=== PATIENT | female | born 1965 | race Caucasian/White ===

== ENCOUNTER 2023-08-05 09:20 | Outpatient (OUT) | payer BC, SELFPAY ==
[2023-08-05 09:52] LABS: Basophils Absolute Auto 0.1 10^3/uL (0.0-0.1); Basophils Percent Auto 0.8 % (0.2-2.0); Eosinophils Absolute Auto 0.1 10^3/uL (0.0-0.7); Eosinophils Percent Auto 2.2 % (0.9-7.0); Hematocrit 40.6 % (36.0-48.0); Hemoglobin 13.3 g/dL (12.0-16.0); Immature Granulocytes Abs Auto 0.03 10^3/uL (0.00-0.03); Immature Granulocytes Pct Auto 0.5 % (0.0-0.5); Lymphocytes Percent Auto 32.5 % (20.5-60.0); Mean Corpuscular HGB Conc 32.8 g/dL (29.9-35.2); Mean Corpuscular Hemoglobin 29.6 pg (26.7-34.0); Mean Corpuscular Volume 90.4 fL (81.0-99.0); Mean Platelet Volume 9.9 fL (9.5-13.5); Monocytes Absolute Auto 0.5 10^3/uL (0.3-0.8); Monocytes Percent Auto 8.5 % (1.7-12.0); Neutrophils Absolute Auto 3.5 10^3/uL (1.4-6.5); Neutrophils Percent Auto 55.5 % (43.0-75.0); Platelet Count 339 10^3/uL (150-450); Red Blood Count 4.49 10^6/uL (4.20-5.40); Red Cell Distribution Width 13.1 % (11.0-15.0); White Blood Count 6.2 10^3/uL (4.0-11.0)
[2023-08-05 10:14] LABS: Estimated Average Glucose 123 mg/dL; Glycohemoglobin A1C 5.9 % (4.5-6.2)
[2023-08-05 10:20] LABS: Alanine Aminotransferase 36 U/L (14-59); Albumin Globulin Ratio 0.9; Albumin Level 3.4 g/dL (3.4-5.0); Alkaline Phosphatase 62 U/L (46-116); Anion Gap 13.1; Aspartate Amino Transferase 17 U/L (15-37); Bilirubin Total 0.2 mg/dL (0.2-1.0); Calcium 8.9 mg/dL (8.5-10.1); Chloride 107 mmol/L (98-107); Chol HDL Ratio 3.7; Cholesterol 208 mg/dL (<=200); Estimated GFR (African America >60 (>=60); Estimated GFR (Non-African Ame >60 (>=60); Free T3 3.18 pg/mL (2.18-3.98); Globulin 3.7 g/dL; Glucose 95 mg/dL (74-106); HDL Cholesterol 56 mg/dL (40-60); Potassium 4.1 mmol/L (3.5-5.1); Sodium 143 mmol/L (136-145); Thyroid Stimulating Hormone 1.979 uIU/mL (0.358-3.740); Total Protein 7.1 g/dL (6.4-8.2); Triglycerides 142 mg/dL (<=150); VLDL CHOLESTEROL 28.4 mg/dL
[2023-08-06 10:08] LABS: Insulin 17.3 uIU/mL (2.6-24.9)
== END 2023-08-05 09:21 | disposition home or self-care (01) ==
LOC: LAB 09:25
PROVIDERS: PCP Nurse Practitioner Family; Visit Provider Nurse Practitioner Family
DX: Z00.00 Encounter for general adult medical examination without abnormal findings (principal)
CPT/HCPCS: 36415; 80053; 80061; 82306; 83036; 83525; 83540; 84436; 84443; 84481; 85025

== ENCOUNTER 2023-08-15 13:55 | Emergency (ER) | payer BC, SELFPAY ==
[2023-08-15 14:06] VITALS: BP 141/96; PULSE 77; RESP 20; TEMP 36.7; O2SAT 97; BMI 32.3
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
[2023-08-15] MEDS: ADACEL DIPH,PERTUSS(ACELL),TET VAC/PF 0.5 ML ADULT SYRINGE IM (15:54)
[2023-08-15 16:08] VITALS: BP 139/86; PULSE 76; RESP 18; O2SAT 99
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
[2023-08-15 16:56] VITALS: BP 139/90; PULSE 73; RESP 16; O2SAT 98
== END 2023-08-15 17:05 | disposition home or self-care (01) ==
PROVIDERS: Emergency Provider Emergency Medicine; PCP Nurse Practitioner Family
DX: S41.112A Laceration without foreign body of left upper arm, initial encounter (principal); S60.021A Contusion of right index finger without damage to nail, initial encounter; W01.118A Fall on same level from slipping, tripping and stumbling with subsequent striking against other sharp object, initial encounter; Z23 Encounter for immunization; Z79.82 Long term (current) use of aspirin; Z79.899 Other long term (current) drug therapy
CPT/HCPCS: 12002; 29130; 73060; 90471; 90715; 99284

== ENCOUNTER 2024-08-14 07:34 | Outpatient (OUT) | payer BC, SELFPAY ==
[2024-08-14 07:55] LABS: Basophils Absolute Auto 0.1 10^3/uL (0.0-0.1); Basophils Percent Auto 0.9 % (0.2-2.0); Eosinophils Absolute Auto 0.1 10^3/uL (0.0-0.7); Eosinophils Percent Auto 1.9 % (0.9-7.0); Hematocrit 41.6 % (36.0-48.0); Hemoglobin 13.9 g/dL (12.0-16.0); Immature Granulocytes Abs Auto 0.03 10^3/uL (0.00-0.03); Immature Granulocytes Pct Auto 0.4 % (0.0-0.5); Lymphocytes Absolute Auto 2.4 10^3/uL (1.2-3.8); Lymphocytes Percent Auto 34.9 % (20.5-60.0); Mean Corpuscular HGB Conc 33.4 g/dL (29.9-35.2); Mean Corpuscular Hemoglobin 29.3 pg (26.7-34.0); Mean Corpuscular Volume 87.6 fL (81.0-99.0); Mean Platelet Volume 10.4 fL (9.5-13.5); Monocytes Absolute Auto 0.6 10^3/uL (0.3-0.8); Monocytes Percent Auto 8.5 % (1.7-12.0); Neutrophils Absolute Auto 3.7 10^3/uL (1.4-6.5); Neutrophils Percent Auto 53.4 % (43.0-75.0); Platelet Count 364 10^3/uL (150-450); Red Blood Count 4.75 10^6/uL (4.20-5.40); White Blood Count 6.8 10^3/uL (4.0-11.0)
[2024-08-14 08:55] LABS: Estimated Average Glucose 126 mg/dL
[2024-08-14 09:07] LABS: Alanine Aminotransferase 40 U/L (14-59); Albumin Level 3.5 g/dL (3.4-5.0); Alkaline Phosphatase 80 U/L (46-116); Aspartate Amino Transferase 21 U/L (15-37); BUN Creatinine Ratio 15.2; Bilirubin Total 0.5 mg/dL (0.2-1.0); Calcium 9.2 mg/dL (8.5-10.1); Carbon Dioxide 27.8 mmol/L (21.0-32.0); Chloride 104 mmol/L (98-107); Chol HDL Ratio 3.9; Cholesterol 193 mg/dL (<=200); Estimated GFR (African America >60 (>=60); Estimated GFR (Non-African Ame 53 (>=60); Free T3 4.99 pg/mL (2.18-3.98); Globulin 3.5 g/dL; Glucose 114 mg/dL (74-106); HDL Cholesterol 50 mg/dL (40-60); Potassium 3.8 mmol/L (3.5-5.1); Sodium 140 mmol/L (136-145); Thyroid Stimulating Hormone 2.949 uIU/mL (0.358-3.740); Triglycerides 180 mg/dL (<=150)
[2024-08-15 06:09] LABS: Insulin 20.2 uIU/mL (2.6-24.9)
== END 2024-08-14 07:35 | disposition home or self-care (01) ==
LOC: LAB 07:36
PROVIDERS: PCP Nurse Practitioner Family; Visit Provider Nurse Practitioner Family
DX: Z00.00 Encounter for general adult medical examination without abnormal findings (principal)
CPT/HCPCS: 36415; 80053; 80061; 83036; 83525; 84436; 84443; 84481; 84482; 85025

== ENCOUNTER 2024-09-18 08:37 | Outpatient (OUT) | payer BC, SELFPAY ==
[2024-09-18 10:08] LABS: Alanine Aminotransferase 57 U/L (14-59); Albumin Level 3.6 g/dL (3.4-5.0); Alkaline Phosphatase 89 U/L (46-116); Anion Gap 14.8; Aspartate Amino Transferase 33 U/L (15-37); BUN Creatinine Ratio 13.8; Bilirubin Total 0.5 mg/dL (0.2-1.0); Calcium 9.6 mg/dL (8.5-10.1); Carbon Dioxide 27.1 mmol/L (21.0-32.0); Chloride 106 mmol/L (98-107); Estimated GFR (African America >60 (>=60 mL/min/1.73m^2); Estimated GFR (Non-African Ame 51 (>=60 mL/min/1.73m^2); Globulin 3.7 g/dL; Glucose 111 mg/dL (74-106); Potassium 3.9 mmol/L (3.5-5.1); Sodium 144 mmol/L (136-145); Total Protein 7.3 g/dL (6.4-8.2)
[2024-09-19 08:13] LABS: Triiodothyronine (T3) 125 ng/dL (71-180)
== END 2024-09-18 08:38 | disposition home or self-care (01) ==
LOC: LAB 08:39
PROVIDERS: PCP Nurse Practitioner Family; Visit Provider Nurse Practitioner Family
DX: Z00.00 Encounter for general adult medical examination without abnormal findings (principal)
CPT/HCPCS: 36415; 80053; 84480

== ENCOUNTER 2025-08-01 07:25 | Outpatient (OUT) | payer BC, SELFPAY ==
--- OUTSIDE RECORDS SUMMARY | 2025-07-25 05:00 | XMS_ITS ---
Author Organization The [facility] in [place] Address [address] [place] [address] Care Team Providers [facility] [employer] Name Role Phone Noemi Degroot Primary Care Provider Allergies Allergen (clinical drug ingredient) Drug/Non Drug Allergy documented on EMR Reaction Allergy Type Onset Date Status Substance with 0-npeexxf-1-methylgl utaryl-coenzyme A reductase inhibitor mechanism of action (substance) Statins myalgias, weakness Drug Allergy Active REASON FOR VISIT Presents to office alone for yearly wellness exam Medications Medication SIG (Take, Route, Frequency, Duration) Notes Start Date End Date Status Triple Somerset-3-6-9 A ctive Multivitamin Active Glucosamine Active Omeprazole 40 MG TAKE 1 CAPSULE BY [facility] EVERY DAY 30 MINUTES BEFORE MORNING MEAL once weekly; Duration: 90 days Active Semaglutide 0.6 mg/0.5 mL Semaglutide 0.6 mg/0.5 mL 0.5 mL Subcutaneous Once Weekly Active Calcium Magnesium Ac tive Evening Derry Oil 500 MG as directed Orally Active Aspirin Low Dose 81 MG TAKE 1 TABLET BY MOUTH EVERY DAY; Duration: 90 Active Colesevelam HCl 625 MG TAKE 4 TABLETS BY MOUTH EVERY DAY; Duration: 90 Active Vitamin D3 Active Social History Tobacco Use: Social History Observation Description Date Details (start date - stop date) Never Smoker NA - NA Tobacco Use/Smoking Question Answer Notes Patient is a nonsmoker AUDIT-C (Standard) Question Answer Notes Did you have a drink containing alcohol in the p ast year? No Points 0 Interpretation Negative Vital Signs Weight 176 lbs 07/25/2025 Height 66.510 in 07/25/2025 Blood pressure systolic 108 mm Hg 07/25/20 25 Blood pressure diastolic 68 mm Hg 025 BMI 27.97 kg/m2 07/25/2025 Encounters Encounter Location Date Provider Diagnosis [facility] [address] [facility] [place] [address] 07/25/2025 Noemi Degroot Wellness examination Z00.00 and Hyperlipidemia E78.5 Assessments Encounter Date Diagnosis (ICD Code) Assessment Notes Treatment Notes Treatment Clinical Notes Section Notes 07/25/2025 Wellness examination (ICD-10 - Z00.00) ROS done exam done 07/25/2025 Hyperlipidemia (ICD-10 - E78.5) Plan Of Treatment Medication Medication Name Sig Start Date Stop Date Notes Aspirin Low Dose 81 MG TAKE 1 TABLET BY MOUTH EVERY DAY; Duration: 90 Colesevelam HCl 625 MG TAKE 4 TABLETS BY MOUTH EVERY DAY; Duration: 90 Treatment Notes Assessment Notes Wellness examination ROS done exam done Pending Test Test Name Order Date HEMOGLOBIN A1C (GLYCO) 07/25/2025 IRON, TOTAL 07/25/2025 LIPID PANEL (CHOL/TRIG/HDL/LDL) 07/25/20 25 VITAMIN D, 25 LEVEL (TOTAL) 07/25/2025 Insulin Level 07/25/2025 THYROID PANEL (T4/TSH/FREE T3) CMP (COMP MET AVENDAÑO) w/eGFR CKD-EPI 2024 CBC WITH DIFF 07/25/2025 Next Appt Details Follow Up: 1 Year,prn, Reaso n: Progress Notes * Susanna MARIA RDOB:1965 (59 yo F)Acc No.[id number]:07/25/2025 Progress Note Patient: Susanna MOE R Provider: Sanjuana Degroot ([facility]), DRY ROOM ATTENDANT :1965 A ge:59 Y S ex:Female Date:07/25/2025 Address:[address] [id number] Check In:08:43 AM ESTCheck O ut:09:06 AM EST Subjective: * Chief Complaints: * 1 . Presents to office alone for yearly wellness exam. * HPI: G eneral: taking semaglutide down 33 lbs , going off GLP 1 wt watchers too 90 days [facility] mammograms done for year paps colonoscopy few years ago, 10 years out labs. * ROS: G eneral/Constitutional: Fever d enies. H eadache d enies. W eight loss?denies. O phthalmologic: Discharge d enies. E ye Pain d enies. I tching and redness d enies. E NT: Nasal discharge d enies. N sushil congestion d enies.?Sore throat d enies. C ardiovascular: Chest tightness/ heavy pressure d enies. R apid heart rate d enies. S welling of extremities d enies. C hest pain d enies. ? R espiratory: Productive cough d enies. C hest pain d enies. C ough d enies. S hortness of breath d enies. W heezing d enies. ? G astrointestinal: Abdominal pain d enies. C onstipation d enies. D ecreased appetite d enies. D iarrhea d enies. N ausea d enies. V omiting?denies. G enitourinary: Urinary incontinence d enies. P ainful urination d enies. M usculoskeletal: Back pain d enies. N huan pain d enies. M uscle aches d enies. S kin: Rash d enies. S kin lesion(s) d enies. ? * Active Problem List I82.409 DVT (deep venous thr ombosis) Modified On:07/29/2023/U Status:confirmed K52.9 Colitis Modified On:07/29/2023U Status:confirmed E66.3 Over weight Modified On:07/29/2023U Status:confirmed N18.9 CKD (chronic kidney disease) Modified On:07/29/2023U Status:confirmed E78.5 Hyperlipidemia Modified On:07/29/2023/U Status:confirmed K21.9 Gastro-esophageal re flux disease without esophagitis Modified On:08/05/2023/U Status:confirmed R73.09 Pre-diabetes Modified On:08/16/2024/U Status:confirmed E66.9 Class 1 obesity Modified On:10/26/2024W/U Status:confirmed E66.3 Overweight Modified On:04/25/2025W/U Status:confirmed * Medical History: D VT, COLITIS, OVER WEIGHT, CKD, HYPERLIPIDEMIA, Atypical ductal hyperplasia of breast. * Surgical History: H YSTEROSCOPY D&C 01/2023, DELIVERY x3 , Endometrial ablasion , Lumpectomy right breast 11/2018. * Hospitalization/Major Diagno stic Procedure: G I bleed 2020. * Family History: F ather: unknown. M other: alive, Cancer lung, breast, skinHysterectomy- start of uterine cancer, diagnosed with Unspecified essential hypertension, Diabetes mellitus without mention of complication, type II or unspecified type, not stated as uncontrolled. B rother(s): , asthma, diagnosed with Other malignant neoplasm of unspecified site. S ister(s): alive, bipolar, asthma, diagnosed with Diabetes mellitus without mention of complication, type II or unspecified type, not stated as uncontrolled. S on(s): alive, Cardio Electrical Issues. D shawner(s): alive, bipolar, anxiety. 2 brother(s) , 1 sister(s) . 1 son(s) , 2 daughter(s) . . Does not know is Biological Father One brother passed at 30- car accident. * Social History: T obacco Use: T obacco Use/Smoking P atient is a n onsmoker D rug/Alcohol: A RENAY-C (Standard) D id you have a drink containing alcohol in the past year? N o P oints 0 I nterpretation N egative * Medications: T aking Aspirin Low Dose(Aspirin) 81 MG Tablet Delayed Release TAKE 1 TABLET BY MOUTH EVERY DAY , Taking Calcium Magnesium , Taking Colesevelam HCl 625 MG Tablet TAKE 4 TABLETS BY MOUTH EVERY DAY , Taking Evening Derry Oil 500 MG Capsule as directed Orally , Taking Glucosamine , Taking Multivitamin , Taking Omeprazole 40 MG Capsule Delayed Release TAKE 1 CAPSULE BY MOUTH EVERY DAY 30 MINUTES BEFORE MORNING MEAL once weekly , Taking Semaglutide 0.6 mg/0.5 mL Semaglutide 0.6 mg/0.5 mL Solution Auto-injector 0.5 mL Subcutaneous Once Weekly , Taking Triple [place]-3-6-9 , Taking Vitamin D3 , Discontinued Semaglutide 1.2 mg/ 0.33mL 1.2 mg/ 0.33mL Solution Auto-injector 0.33 mL Subcutaneous Once Weekly , Medication List reviewed and reconciled with the patient * Allergies: S tatins: myalgias, weakness - Allergy. Objective: * Vitals: W t:176lbs, Ht: 66.510 in, BP:108/68mm Hg, BMI:27.97Index, Ht-cm: 168.94 cm, Wt- k.83 kg. * Examination: G eneral Examinations: GENERAL APPEARANCE: a lert and oriented, i n no acute distress. EYES: c onjunctiva normal, sclera non-icteric. EARS: e xternal auditory canals are patent. Tympanic membranes are pearly trivedi and mobile. NOSE: n ormal external appearance. LUNGS: c lear to auscultation bilaterally. CARDIO: r egular rate and rhythm, S1, S2 normal. ABDOMEN: s oft, nontender. MUSCULOSKELETAL: G ait and station normal. SKIN: w arm and dry. Assessment: * Assessment: 1. W ellness examination - Z00.00 (Primary) 2 . H yperlipidemia - E78.5? Plan: * Treatment: 2. H yperlipidemia Refill Aspirin Low Dose Tablet Delayed Release, 81 MG, TAKE 1 TABLET BY MOUTH EVERY DAY, 90, 90 Tablet, Refills 3; R efill Colesevelam HCl Tablet, 625 MG, TAKE 4 TABLETS BY MOUTH EVERY DAY, 90, 360 Tablet, Refills 3. * Preventive Medicine: Screenings/Counseling: B TN ACTION PLAN Above Normal BMI Follow-up D ietary management education, guidance, and counseling See treatment section of progress note for complete details of management plan. * Follow Up: 1 Year,prn * * Electronically signed by Emmy Degroot NP, [employer] E[employer]OMICS AGENT.DRY ROOM [id number] on 07/25/2025 at 11:19 AM EDT Sign off status: Completed Visit Status: C HK (Check Out) true * Provider: Sanjuana Degroot ([facility]), DONA Date: 07/25/2025 Generated for Roma rivera/Parish/Kurtitting on: 08/01/2025 07:27 AM EDT History and Physical Notes * HPI (History of Present Illness) Category Sub-Category Detail Notes Category Not es General taking semaglutide down 33 lbs , going off GLP 1 wt watchers too 90 days [facility] mammograms done for year paps colonoscopy few years ago, 10 years out labs Examination Category Sub-Category Detail Notes Category Not es General Examinations GENERAL APPEARANCE: alert a nd oriented, in no acute distress EYES: conjunctiva normal, sclera non-icteric EARS: external auditory ca nals are patent. Tympanic membranes are pearly trivedi and mobile NOSE: normal external appe arance THROAT: CARDIO: regular rate and rhy thm, S1, S2 normal LUNGS: clear to auscultatio n bilaterally ABDOMEN: soft, nontender SKIN: warm and dry BACK: MUSCULOSKELETAL: Gait and station nor mal LYMPH NODES:
--- OUTSIDE RECORDS SUMMARY | 2025-08-01 07:28 | XMS_ITS | Patient Health Record ---
Author Organization [facility] in [place] Address [address] [place] [address] Care Team Providers Care Grid Caster Name Role Phone Mikayla, Noemi Primary Care Provider Allergies Allergen (clinical drug ingredient) Drug/Non Drug Allergy documented on EMR Reaction Allergy Type Onset Date Status Substance with 7-gxvshaq-8-methylgl utaryl-coenzyme A reductase inhibitor mechanism of action (substance) Statins myalgias, weakness Drug Allergy Active Results Component Value Reference Range Notes CBC AUTO DIFF Reviewed date:08/15/2024 03:53:06 PM Interpretation: Performing Lab: Notes/Report: [facility] , White Blood Count 6.8 4.0-11.0 10 3/uL Red Blood Count 4.75 4.20-5.40 10 6/uL Hemoglobin 13.9 12.0-16.0 g/dL Hematocrit 41.6 36.0-48.0 % Mean Corpuscular Volume 87.6 81.0-99.0 fL Mean Corpuscular Hemoglobin 29.3 26.7-34.0 pg Mean Corpuscular HGB Conc 33.4 29.9-35.2 g/dL Red Cell Distribution Width 13.0 11.0-15.0 % Platelet Count 364 150-450 10 3/uL Mean Platelet Volume 10.4 9.5-13.5 fL Neutrophils Percent Auto 53.4 43.0-75.0 % Lymphocytes Percent Auto 34.9 20.5-60.0 % Monocytes Percent Auto 8.5 1.7-12.0 % Eosinophils Percent Auto 1.9 0.9-7.0 % Basophils Percent Auto 0.9 0.2-2.0 % Immature Granulocytes Pct Auto 0.4 0.0-0.5 % Neutrophils Absolute Auto 3.7 1.4-6.5 10 3/uL Lymphocytes Absolute Auto 2.4 1.2-3.8 10 3/uL Monocytes Absolute Auto 0.6 0.3-0.8 10 3/uL Eosinophils Absolute Auto 0.1 0.0-0.7 10 3/uL Basophils Absolute Auto 0.1 0.0-0.1 10 3/uL Immature Granulocytes Abs Auto 0.03 0.00-0.03 10 3/uL Performing Lab: see note ML - [facility] LB Reverse T3, Serum Reviewed date:08/22/2024 09:32:34 AM Interpretation: Performing Lab: Notes/Report: [facility] , Reverse T3, Serum 15.0 9.2-24.1 ng/dL This test was developed and its performance characteristics determined by [facility]. It has not been cleared or approved by the Food and Drug Administration. Performed at: [address] [id number] Campus Receptionist: Michael Morel MD, Phone: [phone] Performing Lab: see note [facility] LB TSH Reviewed date:08/15/2024 03:53:06 PM Interpretation: Performing Lab: Notes/Report: [facility] , Thyroid Stimulating Hormone 2.949 0.358-3.740 u IU/mL Performing Lab: see note ML - [facility] LB T4 Reviewed date:08/15/2024 03:53:06 PM Interpretation: Performing Lab: Notes/Report: [facility] , T4 Thyroxine 7.40 4.80-13.90 ug/dL Performing Lab: see note - [facility] LB PROF 14(COMP METB) Reviewed date:08/15/2024 03:53:06 PM Interpretation: Performing Lab: Notes/Report: [facility] , Sodium 140 136-145 mmol/L Potassium 3.8 3.5-5.1 mmol/L Chloride 104 98-107 mmol/L Carbon Dioxide 27.8 21.0-32.0 mmol/L Anion Gap 12.0 Glucose 114 74-106 mg/dL Blood Urea Nitrogen 16.0 7.0-18.0 mg/dL Creatinine 1.05 0.55-1.02 mg/dL Estimated GFR ( Robyn >60 >=60 Estimated GFR (Non- Loren 53 >=60 BUN Creatinine Ratio 15.2 Calcium 9.2 8.5-10.1 mg/dL Bilirubin Total 0.5 0.2-1.0 mg/dL Aspartate Amino Transferase 21 15-37 U/L Alanine Aminotransferase 40 14-59 U/L Alkaline Phosphatase 80 46-116 U/L Total Protein 7.0 6.4-8.2 g/dL Albumin Level 3.5 3.4-5.0 g/dL Globulin 3.5 Albumin Globulin Ratio 1.0 Performing Lab: see note ML - [facility] LIPID PROFILE Reviewed date:08/15/2024 03:53:06 PM Interpretation: Performing Lab: Notes/Report: [facility] , Triglycerides 180 <=150 mg/dL Cholesterol 193 <=200 mg/dL HDL Cholesterol 50 40-60 mg/dL > or =60 mg/dl - LOW CARDIOVASCULAR RISK <40 mg/dl - HIGH CARDIOVASCULAR RISK LDL Cholesterol Calculated 107.0 <100 mg/dl OPTIMAL 100-129 mg/dl NEAR OR ABOVE OPTIMAL 130-159 mg/dl BORDERLINE HIGH 160-189 mg/dl HIGH >190 mg/dl VERY HIGH VLDL CHOLESTEROL 36.0 Chol HDL Ratio 3.9 3.3 - 4.4 LOW RISK 4.4 - 7.1 AVERAGE RISK 7.1 - 11.0 MODERATE RISK >11.0 HIGH RISK Performing Lab: see note ML - [facility] INSULIN Reviewed date:08/15/2024 03:53:06 PM Interpretation: Performing Lab: Notes/Report: [facility] , Insulin 20.2 2.6-24.9 uIU/mL Performed at: - [facility] [address] [id number] Campus Receptionist: John Nassar PhD, Phone: [phone] Performing Lab: see note - [facility] LB GLYCOHEMOGLOBIN A1C Reviewed date:08/15/2024 03:53:06 PM Interpretation: Performing Lab: Notes/Report: [facility] , Glycohemoglobin A1C 6.0 4.5-6.2 % ADA RECOMMENDED LIMIT 4.0 - 6.0 ADA THERAPEUTIC TARGET < 7.0 ACTION SUGGESTED > 7.0 Estimated Average Glucose 126 Performing Lab: see note - [facility] FREE T3 Reviewed date:08/15/2024 03:53:06 PM Interpretation: Performing Lab: Notes/Report: [facility] , Free T3 4.99 2.18-3.98 pg/mL Performing Lab: see note - [facility] LB Triiodothyronine (T3) Reviewed date:09/19/2024 09:46:37 AM Interpretation: Performing Lab: Notes/Report: [facility] , Triiodothyronine (T3) 125 71-180 ng/dL Performed at: - [facility] [address] [id number] Campus Receptionist: John Nassar PhD, Phone: [phone] Performing Lab: see note - [facility] LB PROF 14(COMP METB) Reviewed date:09/19/2024 09:46:51 AM Interpretation: Performing Lab: Notes/Report: [facility] , Sodium 144 136-145 mmol/L Potassium 3.9 3.5-5.1 mmol/L Chloride 106 98-107 mmol/L Carbon Dioxide 27.1 21.0-32.0 mmol/L Anion Gap 14.8 Glucose 111 74-106 mg/dL Blood Urea Nitrogen 15.0 7.0-18.0 mg/dL Creatinine 1.09 0.55-1.02 mg/dL Estimated GFR ( Robyn >60 >=60 mL/min/1.73m 2 Estimated GFR (Non- Loren 51 >=60 mL/min/1.73m 2 BUN Creatinine Ratio 13.8 Calcium 9.6 8.5-10.1 mg/dL Bilirubin Total 0.5 0.2-1.0 mg/dL Aspartate Amino Transferase 33 15-37 U/L Alanine Aminotransferase 57 14-59 U/L Alkaline Phosphatase 89 46-116 U/L Total Protein 7.3 6.4-8.2 g/dL Albumin Level 3.6 3.4-5.0 g/dL Globulin 3.7 Albumin Globulin Ratio 1.0 Performing Lab: see note ML - [facility] LB Reason For Referral No Information Medications Medication SIG (Take, Route, Frequency, Duration) Notes Start Date End Date Status Triple [place]-3-6-9 A ctive Semaglutide 0.6 mg/0.5 mL Semaglutide 0.6 mg/0.5 mL 0.5 mL Subcutaneous Once Weekly Active Vitamin D3 Active Calcium Magnesium Ac tive Evening [place] Oil 500 MG as directed Orally Active Aspirin Low Dose 81 MG TAKE 1 TABLET BY MOUTH EVERY DAY; Duration: 90 Active Colesevelam HCl 625 MG TAKE 4 TABLETS BY MOUTH EVERY DAY; Duration: 90 Active Multivitamin Active Glucosamine Active Omeprazole 40 MG TAKE 1 CAPSULE BY [facility] EVERY DAY 30 MINUTES BEFORE MORNING MEAL once weekly; Duration: 90 days Active Social History Tobacco Use: Social History Observation Description Date Details (start date - stop date) Never Smoker NA - NA Tobacco Use/Smoking Question Answer Notes Patient is a nonsmoker AUDIT-C (Standard) Question Answer Notes Did you have a drink containing alcohol in the p ast year? No Points 0 Interpretation Negative Problems Problem Type SNOMED Code ICD Code Onset Dates Problem Status W/U Status Risk Notes Problem Gastro-esophageal reflux disease without esophagitis (594627539) Gastro-esophageal reflux disease without esophagitis (K21.9) Active confirmed Problem Overweight (143999196) Overweight (E66.3) Active confirmed Problem Hyperlipidemia (96242333) Hyperlipidemia (E78.5) Active confirmed Problem Chronic kidney disease (266597771) CKD (chronic kidney disease) (N18.9) Active confirmed Problem Deep venous thrombosis (973879665) DVT (deep venous thrombosis) (I82.409) Active confirmed Problem Colitis (69690154) Colitis (K52.9) Active confirmed Problem Prediabetes (598737608) Pre-diabetes (R73.09) Active confirmed Problem Overweight (258902499) Over weight (E66.3) Active confirmed Problem Obese class I (finding) (867682583279069) Class 1 obesity (E66.9) Active confirmed Vital Signs Blood pressure diastolic 68 mm Hg 07/25/2025 Height 66.510 in 07/25/2025 Blood pressure systolic 108 mm Hg 07/25/2025 Weight 176 lbs 07/25/2025 BMI 27.97 kg/m2 07/25/2025 Encounters Encounter Location Date Provider Diagnosis [facility] [address] [facility] [place] [address] 08/14/2024 Noemi Degroot [facility] [address] [place] [facility] [place] [address] 08/16/2024 Noemi Degroot Wellness examination Z00.00 [facility] [address] [place] [facility] [place] [address] 09/19/2024 Noemi Degroot [facility] [address] [place] [facility] [place] [address] 10/25/2024 Noemi Degroot [facility] [address] [place] [facility] [place] [address] 12/14/2024 Noemi Degroot [facility] [address] [place] [facility] [place] [address] 01/03/2025 Noemi Degroot [facility] [address] [place] [facility] [place] [address] 02/05/2025 Noemi Degroot [facility] [address] [place] [facility] [place] [address] 03/05/2025 Noemi Degroot [facility] [address] [place] [facility] [place] [address] 08/11/2024 Noemi Degroot Wellness examination Z00.00 and Onychomycosis B35.1 [facility] [address] [place] [facility] [place] [address] 10/25/2024 Noemi Degroot Class 1 obesity E66. 9 [facility] [address] [place] [facility] [place] [address] 01/23/2025 Noemi Degroot Class 1 obesity E66. 9 [facility] [address] [place] [facility] [place] [address] 04/25/2025 Noemi Degroot Overweight E66.3 [facility] [address] [place] [facility] [place] [address] 07/25/2025 Noemi Degroot Wellness examination Z00.00 and Hyperlipidemia E78.5 Assessments Encounter Date Diagnosis (ICD Code) Assessment Notes Treatment Notes Treatment Clinical Notes Section Notes 08/11/2024 Wellness examination (ICD-10 - Z00.00) ROS done exam done encouraged preventive screenings 08/11/2024 Onychomycosis (ICD-10 - B35.1) 10/25/2024 Class 1 obesity (ICD-10 - E66.9) work on diet has handouts from previous visit wants to try MS compounded GLP 1, rx sent wants to start [place] fu 3 months 01/23/2025 Class 1 obesity (ICD-10 - E66.9) continue semaglutide call for next dose work on diet, exercise fu 04/25/2025 Overweight (ICD-10 - E66.3) has supply of semaglutide to last til end of year planning on stopping than just added walking work on diet fu 07/25/2025 Wellness examination (ICD-10 - Z00.00) ROS done exam done 08/16/2024 Wellness examination (ICD-10 - Z00.00) 07/25/2025 Hyperlipidemia (ICD-10 - E78.5) Plan Of Treatment Pending Test Test Name Order Date CMP (COMPLETE METABOLIC PANEL) 3 CMP (COMPLETE METABOLIC PANEL) 4 CMP (COMPLETE METABOLIC PANEL) 4 HEMOGLOBIN A1C (GLYCO) 08/11/2024 HEMOGLOBIN A1C (GLYCO) 07/25/2025 HEMOGLOBIN A1C (GLYCO) 08/05/2023 INSULIN, TOTAL 08/11/2024 IRON, TOTAL 08/05/2023 IRON, TOTAL 07/25/2025 LIPID PANEL (CHOL/TRIG/HDL/LDL) 07/25/20 25 LIPID PANEL (CHOL/TRIG/HDL/LDL) 08/05/20 23 LIPID PANEL (CHOL/TRIG/HDL/LDL) 08/11/20 24 CBC WITH DIFF 08/11/2024 CBC WITH DIFF 08/05/2023 VITAMIN D, 25 LEVEL (TOTAL) 08/05/2023 VITAMIN D, 25 LEVEL (TOTAL) 07/25/2025 Insulin Level 08/05/2023 Insulin Level 07/25/2025 REVERSE T3 08/11/2024 T3, TOTAL (TRIIODOTHYRONINE) 08/16/2024 THYROID PANEL (T4/TSH/FREE T3) 5 THYROID PANEL (T4/TSH/FREE T3) 4 THYROID PANEL (T4/TSH/FREE T3) 3 CMP (COMP MET [place]) w/eGFR CKD-EPI 2024 CBC WITH DIFF 07/25/2025 Insurance Providers Payer Name Payer Address Payer Phone Subscriber Number Group Number Insured Name Patient Relationship to Insured Coverage Start Date Coverage End Date [employer] [address] [place] [address] [id number] Susanna Maria Self - patient is the insured Medical (General) History Medical History History ICD Code DVT COLITIS OVER WEIGHT CKD HYPERLIPIDEMIA Atypical ductal hyperplasia of breast N6 0.99 Surgical History Surgery Date(Month/Year) Lumpectomy right breast 11/2018 Endometrial ablasion DELIVERY x3 HYSTEROSCOPY D&C 01/2023 Hospitalization History Reason Date(Month/Year) GI bleed 2020
--- OUTSIDE RECORDS SUMMARY | 2025-08-01 07:28 | XMS_ITS | Clinical Summary ---
Author Organization [employer] Address [id number] [address] [place] [address] Care Team Providers Care Census Clerk Name Role Phone Noemi Degroot Cirilo FRANCOISN-ENGINEERING GROUP LEADER Primary Care Provider Allergies No known active allergies Medications colesevelam (WELCHOL) 625 mg tablet Take 4 tablets (2,500 mg total) by mouth in the morning. 11 10/21/2018 Active multivitamin capsule Take 1 capsule by mouth in the morning. Active omega-3 fatty acids-fish oil 300-1,000 mg capsule Take 2 capsules (2 g total) by mouth in the morning. Active calcium carbonate-vitam in D3 (OSCAL 500 + D) 500 mg(1,250mg) -200 units per tablet Take 1 tablet by mouth in the morning and 1 tablet in the evening. Take with meals. Active glucosamine-cho ndroitin 500-400 mg tablet Take 1 tablet by mouth 3 (three) times a day. Active aspirin 81 mg chewable tablet Chew 1 tablet (81 mg total) and swallow in the morning. Active evening primrose oil 500 mg capsule Take by mouth daily. Active Active Problems Problem Noted Date Diagnosed Date Scattered fibroglandular tis bhavik density of both breasts on mammography 01/04/2025 Hyperlipidemia 12/01/2023 Obesity (BMI 30.0-34.9) 12/01/2023 Endometrial thickening on ultrasound 01/24/2021 Family history of breast cancer 12/29/2018 Atypical ductal hyperplasia of right breast 12/16 At high risk for breast cancer 12/29/2018 Encounters Date Type Department Care Team Description 07/10/2025 8:10 AM EDT - 07/10/2025 11:59 PM EDT Hospital Encounter [facility] - Mammography/DEXA Imaging [address] [facility] [place] [phone] Frances Andrews, SPRING LAYER-ENGINEERING GROUP LEADER Abnormality of left breast on screening mammogram; Family history of breast cancer; Hx of breast cancer; Scattered fibroglandular tissue density of both breasts on mammography Discharge Disposition: Home 07/10/2025 Results Follow-Up [facility] - [place] [address] [place] [address] Frances Andrews, SPRING LAYER-DONA Mammography diagnostic unilateral left with CAD 07/08/2025 Travel 06/08/2025 Telephone [facility] Obstetrics/Gynecolo gy [address] [place] [address] Frances Andrews, SPRING LAYER-ENGINEERING GROUP LEADER from Last 3 Months Family History Medical History Relation Name Comments Pancreatic cancer Brother Stomach cancer Maternal Grandfather Ovarian cancer Maternal Grandmother Heather Uterine cancer Maternal Grandmother Heather Cancer Maternal Uncle spine, mets t o lungs Breast cancer Mother Sheryl Diabetes Mother Sheryl Type 2 Hyperlipidemia Mother Sheryl Hypertension Mother Sheryl Lung cancer Mother Sheryl Skin cancer Mother Sheryl Breast cancer Other 1 great aunt MGM's sister, dx 50s Breast cancer Other 2 great aunt MGM's sister, dx 50s Asthma Sister Sherri Diabetes Sister Sherri Type 2 Relation Name Status Comments Brother Father Maternal Grandfather Maternal Grandmother Heather Maternal Uncle Mother Sheryl Alive Other 1 great aunt Other 2 great aunt Sister Sherri Alive Social History Tobacco Use Types Packs/Day Years Used Date Smoking Tobacco: Never Smokeless Tobacco: Never Tobacco Cessation:Counseling Given: Not Answered Alcohol Use Standard Drinks/Week Comments No 0 (1 standard drink = 0.6 oz pur e alcohol) Social Connection and Isolat ion Panel [NHANES] Answer Date Recorded In a typical week, how many times do you talk on the phone with family, friends, or neighbors? More than three times a week 12/28/2022 How often do you get togethe r with friends or relatives? Three times a week 12/28/2022 How often do you attend chur or anabaptism services? Never 12/28/2022 Do you belong to any clubs o r organizations such as yazidi groups, unions, fraternal or athletic groups, or school groups? No 12/28/2022 How often do you attend meet ings of the clubs or organizations you belong to? Patient declined 12/28/2022 Are you , , di vorced, , never , or living with a partner? 12/28/2022 AUDIT-C Answer Date Recorded Q1: How often do you have a drink containing alcohol? Never 12/28/2022 Q2: How many drinks containi ng alcohol do you have on a typical day when you are drinking? Patient does not drink Q3: How often do you have si x or more drinks on one occasion? Never 12/28/2022 Overall Financial Resource Strain (CARDIA) Answe r Date Recorded How hard is it for you to pa y for the very basics like food, housing, medical care, and heating? Not hard at all 12/28/2022 PHQ-2 Answer Date Recorded Total Score 1 12/06/2024 [facility] - Occupational Stress Questionnaire Answer Date Recorded Do you feel stress - tense, restless, nervous, or anxious, or unable to sleep at night because your mind is troubled all the time - these days? Not at all 12/28/2022 Exercise Vital Sign Answer Date Recorde d On average, how many days pe r week do you engage in moderate to strenuous exercise (like a brisk walk)? 0 days 12/28/2022 On average, how many minutes do you engage in exercise at this level? 0 min 12/28/2022 PRAPARE - Transportation Answer Date Re corded In the past 12 months, has l ack of transportation kept you from medical appointments or from getting medications? No 12/16 In the past 12 months, has l ack of transportation kept you from meetings, work, or from getting things needed for daily living? No 12/28/2022 Housing Instability Answer Date Recorde d Are you worried or concerned that in the next two months you may not have stable housing that you own, rent or stay in as a part of a household? No 12/28/2022 Childcare Answer Date Recorded Do problems getting child ca re make it difficult for you to work or study? No 12/28/2022 Employment Answer Date Recorded Do you need help finding a [facility] career center and/or a training program? No 12/28/2022 Hunger Screening Answer Date Recorded Within the past 12 months we worried whether our food would run out before we got money to buy more. Never True 12/06/2024 Within the past 12 months th e food we bought just didn't last and we didn't have money to get more. Never True 12/06/2024 Purpose - Life Answer Date Recorded I have a purpose and direction in my life. Stron gly Agree 12/28/2022 Education Answer Date Recorded What is the highest level of school you have completed or the highest degree you have received? Bachelor's degree (e.g., BA, AB, BS) 12/23/2019 Comments No Sex and Gender Information Value Date Recorded Sex Assigned at Female 10/24/2021 10:11 AM EST Legal Sex Female 11:55 AM EDT Gender Identity Female 10/24/2021 10:11 AM EST Sexual Orientation Straight 10/24/2021 10 :11 AM EST Last Filed Vital Signs Vital Sign Reading Time Taken Comments Blood Pressure 112/80 12/06/2024 8:13 AM EST Pulse 82 02/02/2023 8:57 AM EDT Temperature 37.1 C (98.8 F) 02/02/2023 8:57 AM EDT Respiratory Rate 16 02/02/2023 8:57 AM EDT Oxygen Saturation 99% 02/02/2023 8:57 AM EDT Inhaled Oxygen Concentration - - Weight 92.1 kg (203 lb) 12/06/2024 8:13 AM EST Height 168.9 cm (5' 6.5 ) 12/06/2024 8:13 AM EST Body Mass Index 32.27 12/06/2024 8:13 AM EST Plan of Treatment Health Maintenance Due Date Last Done Comments DTaP,Tdap and Td Vaccines (1 - Tdap) 1982 Zoster (Shingles) Vaccine (1 of 2) 2013 Influenza Vaccine 07/16/2025 10/04/2024, , 09/10/2023, Additional history exists Pap Smear 11/24/2025 11/24/2022, 11/15, 10/31/2019, Additional history exists Adult BMI Follow Up Plan 12/06/2025 12/06/2024 Adult BMI Screening 12/06/2025 12/06/2024 Depression Screening 12/06/2025 12/06/2024 Tobacco Screening 12/06/2025 12/06/2024 Mammogram 07/10/2026 07/10/2025, 12/17, 01/04/2025, Additional history exists COVID-19 Vaccine Completed 10/03/2024, , 10/04/2021, Additional history exists Medical Devices Not on file Procedures Procedure Name Priority Date/Time Associated Diagnosis Comments MAMM DIAGNOSTIC UNILAT LT W CAD Routine 07/10/2025 8:33 AM EDT Abnormality of left breast on screening mammogram Family history of breast cancer Hx of breast cancer Scattered fibroglandular tissue density of both breasts on mammography HIGH RISK HPV W/JEAN-PAUL Routine 11/24/2022 6:07 AM EST Screening for cervical cancer from Last 3 Months or Most Recently Relevant to Health Maintenance Results * Mammography diagnostic unilateral left with CAD (07/10/2025 8:33 AM EDT) Anatomical Region Laterality Modality Breast Left Mammography 07/10/2025 8:55 AM EDT Narrative 07/10/2025 8:58 AM EDT BRIA MARIA 1965 [id number] EXAM: MAMM DIAGNOSTIC UNILAT LT W CAD, 07/10/2025 8:10 AM CLINICAL INDICATIONS: Abnormality of left breast on screening mammogram; Family history of breast cancer; Hx of breast cancer; Scattered fibroglandular tissue density of both breasts on mammography, COMPARISON: None TECHNIQUE: Supplemental views of the left breast were obtained for diagnostic workup. Digital tomosynthesis images were obtained, with creation of synthetic 2D views. Computer aided detection was utilized. FINDINGS: There are scattered areas of fibroglandular density. Previously visualized left breast calcifications are no longer evident. A mass in the 11-12:00 region posteriorly is less prominent. There There are no suspicious masses, calcifications, or areas of architectural distortion. IMPRESSION: No mammographic evidence of malignancy. BI-RADS: BI-RADS 1 - Negative RECOMMENDATION: Return to annual screening mammography.. The patient will be due for bilateral mammography in 6 months. Patient was given the results before leaving the department. Finalized by Isaiah Lunsford MD on 07/10/2025 8:58 AM 1 b RETURN TO [facility] Accredited Performing Facility: [facility] Mammography/DEXA Imaging [address] [facility] [id number] Procedure Note Isaiah Lunsford MD - 07/10/2025 BRIA VELASCO KYLER 1965 [id number] EXAM: MAMM DIAGNOSTIC UNILAT LT W CAD, 07/10/2025 8:10 AM CLINICAL INDICATIONS: Abnormality of left breast on screening mammogram;Family history of breast cancer; Hx of breast cancer; Scatteredfibroglandular tissue density of both breasts on mammography, COMPARISON: None TECHNIQUE: Supplemental views of the left breast were obtained for diagnostic workup.Digital tomosynthesis images were obtained, with creation of synthetic 2Dviews. Computer aided detection was utilized. FINDINGS: There are scattered areas of fibroglandular density. Previously visualized left breast calcifications are no longer evident. Amass in the 11-12:00 region posteriorly is less prominent. There There are no suspicious masses, calcifications, or areas of architecturaldistortion. IMPRESSION: No mammographic evidence of malignancy. BI-RADS: BI-RADS 1 - Negative RECOMMENDATION: Return to annual screening mammography.. The patient willbe due for bilateral mammography in 6 months. Patient was given the results before leaving the department. Finalized by Isaiah Lunsford MD on 07/10/2025 8:58 AM 1 b RETURN TO [facility] Accredited Performing Facility: [facility] Mammography/DEXA Imaging [address] [place] [address] us Frances Andrews SPRING LAYER-ENGINEERING GROUP LEADER IMG MAMMOGRAPHY ORDERABL ES Final Result * High risk HPV w/jean-paul (11/24/2022 6:07 AM EST) Hpv specimen type ThinPrep 11/25/2022 6:07 AM EST [facility] Hpv 16 Negative Negative^N egative 11/27/2022 2:11 PM EST [facility] Hpv 18 Negative Negative^N egative 11/27/2022 2:11 PM EST [facility] Other high risk hpv Negative Negative^N egative 11/27/2022 2:11 PM EST [facility] Comment: HPV types 31,33,35,39,45,52,56,58,59,66 and 68 DNA were undetectable. THINP 11/24/2022 6:07 AM EST 11/25/2022 6:08 AM EST us Nasima Donis MD LAB BLOOD ORDERABLES Final Res ult [address], [place] [address] [facility] [address], [address] [place] [address] from Last 3 Months or Most Recently Relevant to Health Maintenance Insurance [employer] Care Teams Census Clerk Relationship Specialty Start Date End Date Noemi Degroot, SPRING LAYER-ENGINEERING GROUP LEADER [address] [place] [phone] PCP - General Family Medicine 12/27/20
--- OUTSIDE RECORDS SUMMARY | 2025-08-01 07:28 | XMS_ITS | Clinical Summary ---
Author Organization [facility] Address [address] [place] [address] Care Team Providers Care Publishing Editor Name Role Phone Unavailable Primary Care Provider Unavailabl e Social History Tobacco Use Types Packs/Day Years Used Date Smoking Tobacco: Never Assessed Comments Unknown Sex and Gender Information Value Date Recorded Sex Assigned at Not on file Legal Sex Female 6:35 PM EDT Gender Identity Not on file Sexual Orientation Not on file Last Filed Vital Signs Vital Sign Reading Time Taken Comments Blood Pressure 116/74 08/20/2022 12:00 PM EDT Pulse - - Temperature - - Respiratory Rate - - Oxygen Saturation - - Inhaled Oxygen Concentration - - Weight 83.5 kg (184 lb) 08/20/2022 12:00 PM EDT Height 167.6 cm (5' 6 ) 08/20/2022 12:00 PM EDT Body Mass Index 29.7 08/20/2022 12:00 PM EDT Plan of Treatment Not on file Insurance [facility]
--- OUTSIDE RECORDS SUMMARY | 2025-08-01 07:28 | XMS_ITS | Encounter Summary ---
Author Organization [employer] Address [id number] [address] [place] [address] Care Team Providers Care Supervisor Intelligence Analyst Name Role Phone Noemi Degroot LEADITE WORKER-MICROBIOLOGY LABORATORY MANAGER Primary Care Provider Encounter Details Date Type Department Care Team (Late st Contact Info) Description 08/26/2020 Abstract [facility] Oncology - Radiation Oncology [address] [place] [phone] Edgar Gill DO Social History Tobacco Use Types Packs/Day Years Used Date Smoking Tobacco: Never Smokeless Tobacco: Never Alcohol Use Standard Drinks/Week Comments No 0 (1 standard drink = 0.6 oz pur e alcohol) Social Connection and Isolat ion Panel [NHANES] Answer Date Recorded Frequency of Communication w ith Friends and Family More than three times a week 12/23/2019 Frequency of Social Gatherin gs with Friends and Family Twice a week 12/23/2019 Attends Oriental Orthodox Services Never 12/23 Active Member of Clubs or Organizations No 12/23/2019 Attends Club or Organization Meetings Never 12/23/2019 Marital Status 12/23/2019 AUDIT-C Answer Date Recorded Frequency of Alcohol Consumption Never 12/23/2019 Average Number of Drinks Patient declined 2019 Frequency of Binge Drinking Never 06/2020 Overall Financial Resource Strain (CARDIA) Answe r Date Recorded Difficulty of Paying Living Expenses Not hard at all 12/23/2019 PHQ-2 Answer Date Recorded Total Score 0 12/23/2019 [facility] Occupat ional [facility] - Occupational Stress Questionnaire Answer Date Recorded Feeling of Stress Not at all 12/23/2019 Exercise Vital Sign Answer Date Recorde d Days of Exercise per Week 1 day 2019 Minutes of Exercise per Session 20 min 12/23/2019 PRAPARE - Transportation Answer Date Re corded Lack of Transportation (Medical) No 12/23/2019 Lack of Transportation (Non-Medical) No 12/23/2019 Childcare Answer Date Recorded Childcare No 12/23/2019 Employment Answer Date Recorded Employment No 12/23/2019 Education Answer Date Recorded What is the [...] Orientation Straight 10/24/2021 10 :11 AM EST documented as of this encounter Plan of Treatment Pending Results Name Type Priority Associated Diagnoses Date /Time MR bilateral breast with and without contrast with CAD Imaging Routine 08/26/2020 4:27 PM EDT documented as of this encounter Visit Diagnoses Not on filedocumented in this encounter Additional Health Concerns Assessment Noted Time PHQ-9 Depression Total Score: 0 12/23/19 20 10:43 AM EST documented as of this encounter Care Teams Supervisor Intelligence Analyst Relationship Specialty Start Date End Date Noemi Degroot, LEADITE WORKER-MICROBIOLOGY LABORATORY MANAGER [address] [place] [phone] PCP - General Family Medicine 12/27/20 documented as of this encounter
--- OUTSIDE RECORDS SUMMARY | 2025-08-01 07:28 | XMS_ITS | Encounter Summary ---
Author Organization [facility] Address [id number] [address] [place] [address] Care Team Providers Care Stone Processing Machine Operator Name Role Phone Noemi Degroot SYSTEMS DESIGN ENGINEER-TOOLROOM ATTENDANT Primary Care Provider Encounter Details Date Type Department Care Team (Late st Contact Info) Description 07/10/2025 Results Follow-Up [facility] - [place] [address] [place] [address] Frances Andrews, SYSTEMS DESIGN ENGINEER-TOOLROOM ATTENDANT [address] [place] [address] Mammography diagnostic unilateral left with CAD Social History Tobacco Use Types Packs/Day Years [...] 12/28/2022 How often do you attend chur ch or yarsanism services? Never 12/28/2022 Do you belong to any clubs o r organizations such as christian groups, unions, fraternal or athletic groups, or [...] Answer Date Recorded Total Score 1 12/06/2024 [facility] Occupat ional Health - Occupational [...] Recorded Do you need help finding a [facility] career center and/or a training [...] as of this encounter Plan of Treatment Not on file documented as of this encounter Visit Diagnoses Not on filedocumented in this encounter Additional Health Concerns Assessment Noted Time PHQ-9 Depression Total Score: 1 12/06/19 25 8:15 AM EST A Body Mass Index follow-up plan has been documented for the patient 12/06/2024 8:50 AM EST documented as of this encounter Care Teams Stone Processing Machine Operator Relationship Specialty Start Date End Date Noemi Degroot APRN-DONA [address] [facility], [place] [phone] PCP - General Family Medicine 12/27/20 documented as of this encounter
--- OUTSIDE RECORDS SUMMARY | 2025-08-01 07:28 | XMS_ITS | Encounter Summary ---
Author Organization [employer] Address [id number] [address] [place] [address] Care Team Providers Care Outside Operator Name Role Phone Noemi Degroot ANDREW-HEALTHCARE EDUCATOR Primary Care Provider Encounter Details Date Type Department Care Team (Late st Contact Info) Description 12/29/2021 Orders Only Nicci Stover [facility] - Medical Oncology [address] [place] [address] Brenden Kraus MD [address] [place], [place] [id number] Encounter for screening mammogram for breast cancer; Endometrial thickening on ultrasound; Family history of breast cancer; Atypical ductal hyperplasia of right breast; At high risk for breast cancer Social History Tobacco Use Types Packs/Day Years [...] and Family Twice a week 12/23/2019 Attends Caodaism Services Never 12/23 Active Member of Clubs [...] Answer Date Recorded Total Score 0 12/23/2019 [facility] of Occupat ional Health - Occupational [...] Employment Answer Date Recorded Employment No 12/23/2019 Purpose - Life Answer Date Recorded Purpose and direction in life Unknown Education Answer Date Recorded What is the [...] Orientation Straight 10/24/2021 10 :11 AM EST COVID-19 Exposure Response Date Recorded In the last month, have you been in contact with someone who was confirmed or suspected to have Coronavirus / COVID-19? No / Unsure 12/29/2021 8:48 AM EST documented as of this encounter Plan of Treatment Not on file documented as of this encounter Procedures Procedure Name Priority Date/Time Associated Diagnosis Comments CBC WITH AUTO DIFFERENTIAL Routine 12/29/2021 9:57 AM EST Encounter for screening mammogram for breast cancer Endometrial thickening on ultrasound Family history of breast cancer Atypical ductal hyperplasia of right breast At high risk for breast cancer COMPREHENSIVE METABOLIC PANEL Routine 12/29/2021 9:57 AM EST Encounter for screening mammogram for breast cancer Endometrial thickening on ultrasound Family history of breast cancer Atypical ductal hyperplasia of right breast At high risk for breast cancer documented in this encounter Results * CBC auto differential (12/29/2021 9:57 AM [facility]) White Blood Cells 6.3 4.0 - 11.0 X10E9/L 12/29/2021 10:[address] [facility] RBC count 4.47 3.80 - 5.20 X10E12/L 12/29/2021 10:[address] [facility] Hemoglobin 13.3 11.7 - 15.5 g/dL 12/29/2021 10:[address] [facility] Hematocrit 39.1 35 - 47 % 12/29/2021 10:[address] [facility] MCV 88 80 - 100 fL 12/29/2021 10:[address] [facility] MCH 29.8 27 - 34 pg 12/29/2021 10:[address] [facility] MCHC 34.0 32 - 36 g/dL 12/29/2021 10:[address] [facility] RDW 13.1 11.5 - 15.0 % 12/29/2021 10:[address] [facility] Platelets 313 150 - 450 X10E9/L 12/29/2021 10:[address] [facility] MPV 8.6 7 - 12 fL 12/29/2021 10:[address] [facility] % neutrophils 56.6 % 12/29/2021 10:[address] [facility] % lymphocytes 32.2 % 12/29/2021 10:[address] [facility] % monocytes 7.6 % 12/29/2021 10:[address] [facility] % eosinophils 2.6 % 12/29/2021 10:[address] [facility] % Basophils 1.0 % 12/29/2021 10:[address] [facility] Neutrophils Absolute (A) 3.5 1.5 - 6.6 X10E9/L 12/29/2021 10:[address] [facility] Lymphocytes Absolute 2.0 1.0 - 3.5 X10E9/L 12/29/2021 10:[address] [facility] Monocytes Absolute 0.5 0 - 0.9 X10E9/L 12/29/2021 10:[address] [facility] Eosinophils Absolute 0.2 0.0 - 0.4 X10E9/L 12/29/2021 10:[address] [facility] Basophils Absolute 0.1 0.0 - 0.2 X10E9/L 12/29/2021 10:[address] [facility] Blood / Unknown 12/29/2021 9 :57 AM EST 12/29/2021 10:00 AM EST us Brenden Kraus MD LAB BLOOD ORDERABLES Final Resul t [facility] [address] [place] [address] * (ABNORMAL) Comprehensive metabolic panel (12/29/2021 9:57 AM EST) Sodium 141 134 - 146 mmol/L 12/29/2021 12:[address] [facility] Potassium, Bld 4.1 3.5 - 5.0 mmol/L 12/29/2021 12:[address] [facility] Chloride 104 98 - 109 mmol/L 12/29/2021 12:[address] [facility] CO2 27 22 - 32 mmol/L 12/29/2021 12:[address] [facility] Anion gap 10 5 - 15 mmol/L 12/29/2021 12:[address] [facility] BUN 20 5 - 23 mg/dL 12/29/2021 12:[address] [facility] Creatinine 0.98 0.40 - 1.00 mg/dL 12/29/2021 12:[address] [facility] Comment:METHOD TRACEABLE TO IDMS STANDARD Glucose 96 65 - 99 mg/dL 12/29/2021 12:[address] [facility] Calcium 9.4 8.5 - 10.5 mg/dL 12/29/2021 12:[address] [facility] Total Protein 6.8 6.0 - 8.0 g/dL 12/29/2021 12:[address] [facility] Albumin 3.8 3.2 - 5.3 g/dL 12/29/2021 12:[address] [facility] Alkaline Phosphatase 40 39 - 130 U/L 12/29/2021 12:[address] [facility] AST 17 0 - 41 U/L 12/29/2021 12:[address] [facility] ALT 23 0 - 31 U/L 12/29/2021 12:[address] [facility] Total bilirubin 0.4 0.3 - 1.2 mg/dL 12/29/2021 12:[address] [facility] GFR MDRD Non Af Amer 58(L) >59 ml/min/1.7 3sq.m 12/29/2021 12:[address] [facility] GFR MDRD Af Amer >60 >59 ml/min/1.7 3sq.m 12/29/2021 12:[address] [facility] PLASMA 12/29/2021 9:57 AM EST 12/29/2021 10:00 AM EST us Brenden Kraus MD LAB BLOOD [place] [address] documented in this encounter Visit Diagnoses Diagnosis Encounter for screening mammogram for breast cancer Endometrial thickening on ultrasound Family history of breast cancer Family history of malignant neoplasm of breast Atypical ductal hyperplasia of right breast At high risk for breast cancer documented in this encounter Additional Health Concerns Assessment Noted Time PHQ-9 Depression Total Score: 0 12/23/19 20 10:43 AM EST documented as of this encounter Care Teams Outside Operator Relationship Specialty Start Date End Date Noemi Degroot, STONECUTTER HAND-HEALTHCARE EDUCATOR [address] [place] [phone] PCP - General Family Medicine 12/27/20 documented as of this encounter
--- OUTSIDE RECORDS SUMMARY | 2025-08-01 07:29 | XMS_ITS | CCD ---
Author Organization [facility] CliniSymo Care Team Providers Care Measurement Superintendent Name Role Phone Freddie Epps Primary Care Physician [phone] NOEMI FALCON Primary Care Unavailable NILL, DR LOVELACE Admitting Unavailable NILL, DR LOVELACE Attending Unavailable NILL, DR LOVELACE Consulting Unavailable JESUS BENTON Consulting Unavailable STALIN HUNG Consulting Unavailable NILL, DR LOVELACE Admitting Unavailable NILL, DR LOVELACE Attending Unavailable TERRIE, NOEMI Primary Care Unavailable TERRIE, NOEMI Primary Care Unavailable UNIQUE, DR JAEGER Attending Unavailable UNIQUE, DR JAEGER Consulting Unavailable NURYSY, DR JAEGER Admitting Unavailable CAT, DR TURCIOS Consulting Unavailable DHRUV, LENNIE Consulting Unavailable SIRISHAKENDELL Consulting Unavailable AMIN, GILMAR Consulting Unavailable TERRIE, NOEMI Admitting Unavailable BARNEY, DR CAROLINE Lopes Consulting Unavailable TERRIE, NOEMI Attending Unavailable TERRIE, NOEMI Primary Care Unavailable TERRIE, NOEMI Consulting Unavailable TERRIE, NOEMI Primary Care Unavailable HOY, DR JAEGER Admitting Unavailable HOY, DR JAEGER Attending Unavailable HOY, DR JAEGER Consulting Unavailable TERRIE, NOEMI Admitting Unavailable TERRIE, NOEMI Attending Unavailable TERRIE, NOEMI Consulting Unavailable TERRIE, NOEMI Primary Care Unavailable TERRIE, NOEMI Admitting Unavailable TERRIE, NOEMI Attending Unavailable BARNEY, DR CAROLINE Lopes Consulting Unavailable TERRIE, NOEMI Primary Care Unavailable TERRIE, NOEMI Consulting Unavailable NILLAl[place] Attending Unavailable TERRIE, NOEMI S Referring Unavailable NILLAlbania Attending Unavailable NILLAlbania Attending Unavailable NILL, [place] Mayen Attending Unavailable Terrie DTP OPERATOR-SCREEN PRINTING MACHINE LOADER UNLOADER, Noemi S Primary Care Provider NOEMI FALCON S Referring Unavailable TERRIE, NOEMI S Primary Care Unavailable Terrie DTP OPERATOR-SCREEN PRINTING MACHINE LOADER UNLOADER, Noemi S Primary Care Provider FRANCES STILL Attending Unavailable KROTZERFRANCES M Referring Unavailable TERRIE, NOEMI S Primary Care Unavailable KROTZERFRANCES M Attending Unavailable KROTZERFRANCES M Referring Unavailable TERRIE, NOEMI S Primary Care Unavailable KIMBERLEEZERFRANCES M Attending Unavailable CHARANOTZER, FRANCES M Referring Unavailable TERRIE, NOEMI S Primary Care Unavailable KIMBERLEEZERFRANCES M Attending Unavailable CHARANOTZERFRANCES M Referring Unavailable TERRIE, NOEMI S Primary Care Unavailable KIMBERLEEZERFRANCES M Attending Unavailable KIMBERLEEZERFRANCES M Referring Unavailable TERRIE, NOEMI S Primary Care Unavailable Allergies Allergy Classification Reported Allergen(s) Allergy Type Date of Onset Reaction(s) Facility (3 sources) HMG-CoA reductase inhibitor; Translations: [statins] Drug allergy Unknown (qualifier value), Muscle weakness (finding) General [facility] [place] Medications Current Medications Medication Drug Class(es) Dates Sig (Normalized) Sig (Original) apixaban 5 mg oral tablet (1 source) Factor Xa Inhibitor Start: 08-21-2022 take 1 tablet by mouth twice daily Eliquis 5 mg oral tablet 5 mg = 1 tab(s), Oral, BID, Refills(s) 0 Start Date: 08/21/22 Status: Ordered aspirin 81 mg delayed release oral tablet (6 sources) Platelet Aggregation Inhibitor, Nonsteroidal Anti-inflammatory Drug Start: 11-25-2022 take 1 tablet by mouth once daily aspirin 81 mg Oral EC Tab 81 mg = 1 tab(s), Oral, Daily, Refills(s) 0 Start Date: 11/25/22 Status: Ordered aspirin 81 mg ch ewable tablet Chew 1 tablet (81 mg total) and swallow in the morning. Active calcium carbonate 1250 mg / cholecalciferol 200 unt oral tablet (5 sources) Vitamin D take 1 tablet by mouth once in the morning calcium carbonate-vitamin D3 (OSCAL 500 + D) 500 mg(1,250mg) -200 units per tablet Take 1 tablet by mouth in the morning and 1 tablet in the evening. Take with meals. Active chondroitin sulfates 400 mg / glucosamine hydrochloride 500 mg oral tablet (5 sources) take 1 tablet by mouth three times daily glucosamine-chondroitin 500-400 mg tablet Take 1 tablet by mouth 3 (three) times a day. Active colesevelam hydrochloride 625 mg oral tablet (7 sources) Bile Acid Sequestrant Start: 018 take 4 tablets by mouth in the morning colesevelam (WELCHOL) 625 mg tablet Take 4 tablets (2,500 mg total) by mouth in the morning. 11 10/21/2018 Active evening primrose oil 500 mg oral capsule (5 sources) evening primrose oil 500 mg capsule Take by mouth daily. Active multivitamin capsule (5 sources) take 1 capsule by mouth in the morning multivitamin capsule Take 1 capsule by mouth in the morning. Active take 1 capsule by mouth in the m orning multivitamin capsule Take 1 capsule by mouth in the morning. 0 Active omega-3 fatty acids-fish oil 300-1,000 mg capsule (5 sources) take 2 capsules by m outh in the morning omega-3 fatty acids-fish oil 300-1,000 mg capsule Take 2 capsules (2 g total) by mouth in the morning. Active take 2 capsules by mouth in the morning omega-3 fatty acids-fish oil 300-1,000 mg capsule Take 2 capsules (2 g total) by mouth in the morning. 0 Active Completed/Discontinued Medications Medication Drug Class(es) Dates Sig (Normalized) Sig (Original) tamoxifen 20 mg oral tablet (3 sources) Estrogen Agonist/Antagonis t Start: 03-24-2023 End: 12-01-2023 take 1 tablet by mouth once daily tamoxifen (NOLVADEX) 20 mg chemo tablet TAKE 1 TABLET BY MOUTH EVERY DAY 90 tablet 4 03/24/2023 12/01/2023 Discontinued (Therapy completed) Start: 08-14-2022 take 1 tablet by jl th twice daily tamoxifen 10 mg Tab 10 mg = 1 tab(s), Oral, BID, Refills(s) 0 Start Date: 08/14/22 Status: Ordered Problems Active Problems Problem Classification Problem Date Documented Da te Episodic/Chronic Abdominal pain (5 sources) Unspecified abdominal pain; Translations: [Lower abdominal pain, unspecified] Onset: 08-05-2022 Episodic Chronic kidney disease (3 sources) Chronic kidney disease stage 2; Translations: [Chronic kidney disease, stage 2 (mild)] Onset: 12-29-2022 08-14-2022 Chronic Diabetes mellitus without complication (2 sources) Hyperglycemia 08-14-2022 Episodic Diseases of white blood cells (1 source) Elevated white blood cell count, unspecified; Translations: [ELEVATED WHITE BLOOD CELL COUNT UNS] Onset: 08-05-2022 Chronic Disorders of lipid metabolism (8 sources) Hyperlipidemia; Translations: [Hyperlipidemia, unspecified] Onset: 12-29-2022 08-14-2022 Chronic Other gastrointestinal disorders (1 source) Personal history of other diseases of the digestive system; Translations: [PERSONAL HX OTH DZ DIGESTIVE SYSTEM] Onset: 12-29-2022 Episodic Other gastrointestinal disorders (1 source) Diarrhea, unspecified; Translations: [DIARRHEA UNSPECIFIED] Onset: 12-29-2022 Episodic Other nutritional; endocrine; and metabolic disorders (2 sources) Body mass index 30+ - obesity 08-21-2022 Chronic Other nutritional; endocrine; and metabolic disorders (3 sources) Obesity; Translations: [Obesity, unspecified] Onset: 12-01-2023 08-14-2022 Chronic Other nutritional; endocrine; and metabolic disorders (1 source) Obesity, unspecified; Translations: [OBESITY UNSPECIFIED] Onset: 12-29-2022 Chronic Other nutritional; endocrine; and metabolic disorders (1 source) Body mass index (BMI) 32.0-32.9, adult; Translations: [BODY MASS INDEX BMI 32.0-32.9 ADULT] Onset: 12-29-2022 Chronic Other nutritional; endocrine; and metabolic disorders (4 sources) Obese class I; Translations: [Obesity (BMI 30.0-34.9)] Onset: 12-01-2023 12-06-2024 Chronic Other screening for suspected conditions (not mental disorders or infectious disease) (9 sources) Endometrium thickened; Translations: [Abnormal findings on diagnostic imaging of other specified body structures] Onset: 01-24-2021 12-06-2024 Chronic Phlebitis; thrombophlebitis and thromboembolism (6 sources) Personal history of other venous thrombosis and embolism; Translations: [Acute embolism and thrombosis of unspecified vein] Onset: 08-24-2022 Episodic Screening and history of mental health and substance abuse codes (3 sources) Standardized adult depression screening tool completed ; Translations: [Encounter for screening for depression] Onset: 12-06-2024 12-06-2024 Episodic Unclassified (1 source) Gynecologic Exam Onset: 12-06-2024 Unclassified (1 source) Mammographic fibroglandular density, bilateral breasts; Translations: [Mammographic fibroglandular density, bilateral breasts] Onset: 01-04-2025 Past or Other Problems Problem Classification Problem Date Documented Date Episodic/Chronic Acute posthemorrhagic anemia (1 source) Acute posthemorrhagic anemia; Translations: [ACUTE POSTHEMORRHAGIC ANEMIA] Onset: 08-05-2022 Episodic Cancer of breast (4 sources) Personal history of malignant neoplasm of breast; Translations: [History of malignant neoplasm of breast] Onset: 08-05-2022 01-04-2025 Episodic Fluid and electrolyte disorders (1 source) Hypokalemia; Translations: [HYPOKALEMIA] Onset: 08-05-2022 Episodic Intestinal infection (3 sources) Infectious gastroenteritis and colitis, unspecified; Translations: [INF GASTROENTERITIS AND COLITIS UNS] Onset: 07-30-2022 Episodic Mood disorders (5 sources) Mood disorders Onset: 12-01-2023 Resolved: 12-06-2024 12-06-2024 Noninfectious gastroenteritis (8 sources) Noninfectious enteritis; Translations: [Noninfective gastroenteritis and colitis, unspecified] Onset: 08-04-2022 Episodic Nonmalignant breast conditions (12 sources) Atypical ductal hyperplasia of breast; Translations: [Unspecified benign mammary dysplasia of right breast] Onset: 12-29-2018 08-14-2022 Episodic Other aftercare (1 source) snf (current) use of aspirin; Translations: [BABY SITTER CURRENT USE OF ASPIRIN] Onset: 08-05-2022 Episodic Other aftercare (1 source) Other fdc (current) drug therapy; Translations: [OTH BABY SITTER CURRENT DRUG THERAPY] Onset: 08-05-2022 Episodic Other connective tissue disease (4 sources) Pain in left lower leg; Translations: [PAIN IN LEFT LOWER LEG] Onset: 08-20-2022 Episodic Other screening for suspected conditions (not mental disorders or infectious disease) (7 sources) Patient encounter status; Translations: [Encounter for screening mammogram for malignant neoplasm of breast] Onset: 12-06-2024 12-06-2024 Episodic Residual codes; unclassified (6 sources) Family history of breast cancer; Translations: [Family history of malignant neoplasm of breast] Onset: 12-29-2018 12-29-2018 Episodic Residual codes; unclassified (5 sources) At high risk for breast cancer; Translations: [Other specified personal risk factors, not elsewhere classified] Onset: 12-29-2018 12-29-2018 Episodic Residual codes; unclassified (1 source) Family history of malignant neoplasm of breast; Translations: [Family history of malignant neoplasm of breast] Onset: 12-29-2018 Episodic Unclassified (5 sources) Onset: 12-01-2023 Resolved: 12-06-2024 12-06-2024 Results Test Name Value Interpretation Reference Range Facility MAMM DIAGNOSTIC UNILAT LT W CADon 07-10-2025 MAMM DIAGNOSTIC UNILAT LT W CAD MAMM DIAGNOSTIC UNILAT LT W CAD BRIA VELASCO KYLER 1965 [id number] EXAM: MAMM DIAGNOSTIC UNILAT LT W CAD, [...] 07/10/2025 8:58 AM 1 b RETURN TO [facility] MAMM DIAGNOSTIC UNILAT LT W CADon 01-09-2025 MAMM DIAGNOSTIC UNILAT LT W CAD MAMM DIAGNOSTIC UNILAT LT W CAD BRIA VELASCO KYLER 1965 [id number], [id number] EXAM: MAMM DIAGNOSTIC UNILAT LT W CAD, US BREAST LT LIMITED, 01/09/2025 9:42 AM CLINICAL INDICATIONS: Abnormality of left breast on screening mammogram; Hx of breast cancer; Scattered fibroglandular tissue density of both breasts on mammography, Patient returns for additional imaging of an abnormality visualized on screening mammography. COMPARISON: 01/04/2025 and prior mammograms TECHNIQUE: Supplemental views of the left breast were obtained for diagnostic workup. Digital tomosynthesis images were obtained, with creation of synthetic 2D views. Computer aided detection was utilized. FINDINGS: There are scattered areas of fibroglandular density. Magnification imaging demonstrates probably benign group of calcifications roughly 5 mm in diameter 3:00 position of the breast anterior depth. Six-month mammogram follow-up recommended. Spot magnification views demonstrate a 5 mm ovoid mass 11-12 position roughly 9 cm from the nipple ____ Left Breast Ultrasound, Limited TECHNIQUE: Multiple real-time trivedi-scale images of the left breast in the 11-12 o'clock axis were performed. Color Doppler was utilized to assess vascular flow. FINDINGS: There is a 4 x 5 mm anechoic to hypoechoic mass 9 cm from the nipple, this corresponds with the mammographic mass and is probably benign likely a small cyst possibly slightly complicated. Six-month mammogram recommended for follow-up. ____ COMBINED IMPRESSION: Probably benign left breast mass and calcifications, six-month mammogram recommended to ensure stability of both findings BI-RADS: BI-RADS 3 - Probably Benign RECOMMENDATION: Repeat diagnostic mammogram in 6 months. Patient was given the results before leaving the department. Finalized by Hitesh Manzo MD on 01/09/2025 1:06 PM 3 b MAMM 6 MONTH Normal [facility] US BREAST LT LIMITEDon 01-09 US BREAST LT LIMITED US BREAST LT LIMITE Jaden DORADOHamida VELASCO KYLER 1965 [id number], [id number] EXAM: MAMM DIAGNOSTIC UNILAT LT W CAD, US BREAST LT LIMITED, 01/09/2025 9:42 AM CLINICAL INDICATIONS: Abnormality of left breast on screening mammogram; Hx of breast cancer; Scattered fibroglandular tissue density of both breasts on mammography, Patient returns for additional imaging of an abnormality visualized on screening mammography. COMPARISON: 01/04/2025 and prior mammograms TECHNIQUE: Supplemental views of the left breast were obtained for diagnostic workup. Digital tomosynthesis images were obtained, with creation of synthetic 2D views. Computer aided detection was utilized. FINDINGS: There are scattered areas of fibroglandular density. Magnification imaging demonstrates probably benign group of calcifications roughly 5 mm in diameter 3:00 position of the breast anterior depth. Six-month mammogram follow-up recommended. Spot magnification views demonstrate a 5 mm ovoid mass 11-12 position roughly 9 cm from the nipple ____ Left Breast Ultrasound, Limited TECHNIQUE: Multiple real-time trivedi-scale images of the left breast in the 11-12 o'clock axis were performed. Color Doppler was utilized to assess vascular flow. FINDINGS: There is a 4 x 5 mm anechoic to hypoechoic mass 9 cm from the nipple, this corresponds with the mammographic mass and is probably benign likely a small cyst possibly slightly complicated. Six-month mammogram recommended for follow-up. ____ COMBINED IMPRESSION: Probably benign left breast mass and calcifications, six-month mammogram recommended to ensure stability of both findings BI-RADS: BI-RADS 3 - Probably Benign RECOMMENDATION: Repeat diagnostic mammogram in 6 months. Patient was given the results before leaving the department. Finalized by Hitesh Manzo MD on 01/09/2025 1:06 PM 3 b MAMM 6 MONTH Normal [facility] US PELVIC WITH TRANSVAGINALo n 01-05-2025 US PELVIC WITH TRANSVAGINAL US PELVIC WITH TRANSVAGINAL US PELVIC WITH TRANSVAGINAL: 01/04/2025 7:24 AM INDICATION: 59 years old Female. Endometrial thickening on ultrasound. COMPARISON: Pelvic ultrasound from 12/31/2023, 12/02/2022 and 06/15/2022. TECHNIQUE: Transabdominal and transvaginal sonographic evaluation of the pelvis was performed. FINDINGS: The uterus appears anteverted and measures 8.5 x 3.6 x 5.3 cm. Redemonstration of numerous uterine lesions likely on the basis of fibroids the largest of which appears to be intramural and measures up to 2.6 cm in the posterior uterine fundus. Possible small submucosal component of a 1.8 cm uterine fibroid. The endometrium is somewhat obscured due to previously noted presumed fibroids however may measure up to 8 mm. The right ovary measures 1.9 x 1.1 x 1.3 cm and is unremarkable. Flow is noted overlying the right adnexa. The left ovary is not seen likely due to bowel gas and/or atrophy. No significant free fluid. IMPRESSION: 1. Although limited as above the endometrium measures up to 8 mm. Correlate with history of vaginal bleeding/current medications and consideration to direct visualization as indicated in order to exclude neoplasm. 2. Redemonstration of a presumed multifibroid uterus the largest of which is intramural and measures up to 2.6 cm in the posterior uterine fundus. Finalized by Bradly Pepper MD on 01/05/2025 5:30 PM Normal [facility] MAMM SCREENING BILATERAL W C community development technician 01-04-2025 MAMM SCREENING BILATERAL W CAD MAMM SCREENING BILATERAL W CAD BRIA WOLFFMER 1965 [id number] EXAM: MAMM SCREENING BILATERAL W CAD, 01/04/2025 7:53 AM CLINICAL INDICATIONS: Screening, Encounter for screening mammogram for breast cancer COMPARISON: 12/31/2023 TECHNIQUE: Bilateral digital tomosynthesis MLO and CC views of the breasts were obtained, with creation of synthetic 2D views. Computer aided detection was utilized. FINDINGS: There are scattered areas of fibroglandular density. Scar medial right breast mid depth. Stable asymmetry upper outer left breast deep left breast. New group of calcifications left breast 3:00 position mid depth. New focal asymmetry deep central left breast 8 to 9 cm deep to the nipple. IMPRESSION: Incomplete BI-RADS: BI-RADS 0 - Incomplete. Needs additional imaging evaluation. RECOMMENDATION: Additional imaging required. Spot magnification compression CC and MLO views calcifications 3:00 position left breast. Anterior to mid depth spot compression CC and MLO views of new focal asymmetry deep central left breast best seen on tomography. RISK ASSESSMENT: TC Lifetime risk: Not applicable%. The patient's reported personal and family medical history was used calculate their Tyrer-Cuzick lifetime risk of malignancy. Scores less than 20% are not considered high risk per ACR guidelines and patient should continue with the above recommendation. Finalized by Jaylon Nathan MD on 01/04/2025 9:03 AM 0A b ADDITIONAL I Normal [facility] Outside Colonoscopyon 2022 Outside Colonoscopy [id number] 0CD:127 Normal [facility] Reminderson 12-24-2022 Reminders - From: Noa Jacobs LPN To: [facility] - Clinical; Sent: 12/24/2022 09:54:39 EST Show up: 11/22/2032 07:00:00 EST Subject: colonoscopy recall Due Date/Time: 12/23/2032 07:00:00 EST Reminder/Recall Patient is due for screening colonoscopy 12/23/2032. Normal [facility] Pre-Certification Formon Pre-Certification Form [id number]. 00CD:[address] [facility] Consent for Procedure/Surger yon 11-26-2022 Consent for Procedure/Surgery [id number] 0CD:[address] [facility] General Surgery Office/Clini c Noteon 11-25-2022 General Surgery Office/Clinic Note Chief Complaint discuss proceeding with colonoscopy HPI Staff Presents to discuss proceeding with colonoscopy for previously diagnosed colitis. Last evaluation 08/21/22, was unable to hold Eliquis at that time. Denies abdominal pain or rectal bleeding since last eval. Never had colonoscopy in the past. History of Present Illness 57 yo female with h/o LLE DVT, DCIS, seen in August for episode of colitis requiring hospital admission; had abd pain and bloody diarrhea, this resolved with treatment; abd ct scan with colitis of transverse colon; no previous colonoscopy, but 2 negative Cologuard tests, last 06/2022; was on Eliquis back in August, and unable to stop it for colonoscopy; now off Eliquis, on baby asa daily, no NSAID use, no SBE prophylaxis; abdominal operations significant for x 3; no fmhx of GI malignancy or IBD. no tobacco use. Review of Systems PHQ Score Initial Depression Screen Score: 0 ROS - Provider Constitutional: no fever, no sweats, no weight loss. Eyes: yes glasses, no blurred vision, no visual loss. ENMT: no dentures, no hoarseness, no swallowing difficulties, no hearing loss, no ear infection(s), no nose bleeds. Cardiovascular: normal blood pressure, no chest pain, regular heartbeat, no heart murmur. Respiratory: no shortness of breath, no cough, no asthma, no wheezing. Gastrointestinal: no nausea, no vomiting, no diarrhea, no constipation, no blood in stool, no change in bowel habits, no abdominal pain, no hepatitis. Genitourinary: no kidney stones, no urine infection, no dysuria. Musculoskeletal: no pain, no weakness. Skin: no changing moles, no rash, no skin lumps. Neurologic: no seizures, no epilepsy, no headache. Psychiatric: no emotional or psychiatric problem. Heme/Lymph: no bleeding problems, no anemia, no blood clots, no transfusions. Allergy/Immunologic: no swollen lymph nodes/glands, no IV drug abuse. Other: Additional ROS info: Except as noted in the above Review of Systems and in the History of Present Illness, all other systems have been reviewed and are negative or noncontributory. Physical Exam Vitals & Measurements HR: 72(Peripheral) RR: 16 BP: 118/76 HT: 65 in HT: 166 cm WT: 88.9 kg WT: 195.58 lb BMI: 32.26 HEENT: normal conjunctiva, sclera clear, no scleral icterus, EOM intact, PERRLA, oral mucosa moist without lesions. Neck: trachea midline, no mass, symmetric, no thyromegaly or nodules, no adenopathy Respiratory: lungs CTA, respirations non labored. Cardiovascular: regular rate and rhythm, no murmur, no pedal edema or varicosities. Gastrointestinal: soft, non distended, no tenderness, no masses, no palpable hernias, diastasis recti no, no hepatosplenomegaly; normal bs Lymphatic: no cervical adenopathy, Musculoskeletal: normal gait, digits and nails without infection, nodes, cyanosis, clubbing. Skin: no rashes, no lesions, no ulcers, no subcutaneous nodules, induration. Psychiatric/Neuro: oriented to time, place, person, judgement normal, affect appropriate for age, insight intact, no focal deficits. Tests: labs reviewed, x-rays reviewed, review of old records completed, Discussed surgical options, risks, and possible complications with patient. Assessment/Plan 1. Colitis (K52.9: Noninfective gastroenteritis and colitis, unspecified) plan colonoscopy under anesthesia for further evaluation informed consent obtained. Follow-up No qualifying data available Problem List/Past Medical History Ongoing Atypical ductal hyperplasia of breast BMI 32.0-32.9,adult CKD (chronic kidney disease), stage II Colitis Elevated blood sugar Hyperlipidemia Obesity Historical No qualifying data Procedure/Surgical History section, section, section, Lumpectomy of right breast. Medications aspirin 81 mg Oral EC Tab, 81 mg= 1 tab(s), Oral, Daily colesevelam 625 mg Tab, 2500 mg= 4 tab(s), Oral, Daily tamoxifen 10 mg Tab, 10 mg= 1 tab(s), Oral, BID Allergies statins (Muscle weakness) Social History Alcohol - Denies Alcohol Use, 08/21/2022 Substance Abuse - Denies Substance Abuse, 08/21/2022 Tobacco Never (less than 100 in lifetime) Tobacco Use:. Never Smokeless Tobacco Use:., 11/25/2022 Family History Asthma: Sister and Brother. Bipolar disorder: Sister. Diabetes mellitus type 2: Mother and Sister. Hypertension: Mother. Primary malignant neoplasm of female breast: Mother. Primary malignant neoplasm of lung: Mother. Primary malignant neoplasm of skin: Mother. Uterine cancer: Mother. Immunizations Vaccine Date Status Comments influenza virus vaccine, inactivated 09/02/2022 Recorded SARS-CoV-2 (COVID-19) mRNA BNT-162b2 vax 09/26/2021 Recorded 2022-11-25: [id number] SARS-CoV-2 (COVID-19) mRNA BNT-162b2 vax 02/25/2021 Recorded SARS-CoV-2 (COVID-19) mRNA BNT-162b2 vax 02/03/2021 Recorded Normal [facility] Comment on above: Result Comment: Elec tronically Signed By: JANETT WAGGONER, [place] Castellanos\Date and Time Signed: 11/25/22 14:37 EST Reminderson 11-18-2022 Reminders - From: Noa Jacobs LPN To: [facility] - Clinical; Sent: 08/24/2022 09:18:11 EDT Show up: 11/17/2022 07:00:00 EST Subject: colonoscopy recall Due Date/Time: 11/24/2022 07:00:00 EST Reminder/Recall Patient is due for colonoscopy 11/2022 (if blood thinner has been discontinued). Has appointment to discuss. future appointmentFuture Appointments [facility] App[facility] Date: 11/25/2022 2:20 PM Scheduled Provider: Janett WAGGONER, [place], [address], [address] Normal [facility] US CARO DOP LEG LTon 11-12-20 US CARO DOP LEG LT EXAMINATION: US CARO DOP LEG LT HISTORY: Thromboembolism of vein COMPARISON: 08/20/2022 TECHNIQUE: Grayscale, color and Doppler ultrasound FINDINGS: Region: Left leg Thrombus: None Flow: Normal Augmentation: Normal Compressibility: Normal IMPRESSION: No deep or superficial vein thrombus in the left leg. Interval resolution of previously identified deep vein thrombus *Exam performed in accordance with [facility] practice guidelines- Peripheral venous ultrasound, February 08, 2010. Electronically authenticated by: CAROLINE CORLEY Date: 2022-11-12 16:15 Normal [facility] Consultation Noteon 08-25-20 Consultation Note [id number] 0CD:127 Normal [facility] Facesheeton 08-24-2022 Facesheet [id number] 0CD:127 Normal [facility] US CARO DOP LEG LTon 08-20-20 US CARO DOP LEG LT EXAMINATION: US CARO DOP LEG LT HISTORY: Pain of left lower leg COMPARISON: No relevant comparison available. TECHNIQUE: Grayscale, color and Doppler ultrasound FINDINGS: Region: Left leg Thrombus: Echogenic thrombus identified in the proximal to mid anterior tibial vein. No thrombus identified within the femoral or popliteal vein. Flow: Normal flow in the proximal veins Compressibility: Noncompressibility corresponding to thrombus Augmentation: Normal augmentation proximally These findings were called to the ordering clinician by the technologist at the time of exam. IMPRESSION: Small amount of deep vein thrombus identified in the proximal to mid anterior tibial vein *Exam performed in accordance with [facility] practice guidelines- Peripheral venous ultrasound, February 08, 2010. Electronically authenticated by: CAROLINE CORLEY Date: 2022-08-20 10:23 Normal [facility] Physician Referralon 022 Physician Referral [id number] 0CD:127 Normal [facility] GI PANEL (PCR)on 08-04-2022 Adenovirus F 40/41 Not detected Normal NOT DETECTED [facility] Comment on above: Performed By: #### C BCMAN #### [facility] [address] [place] [address] Dr. Yvette Wilcox Astrovirus Not detected Normal NOT DETECTED [facility] Comment on above: Performed By: #### C BCMAN #### [facility] [address] [place] [address] Dr. Yvette Soria Diff toxin A/B Not detected Normal NOT DETECTED [facility] Comment on above: Performed By: #### C BCMAN #### [facility] [address] [place] [address] Dr. Yvette Wilcox Campylobacter Not detected Normal NOT DETECTED [facility] Comment on above: Performed By: #### C BCMAN #### [facility] [address] [place] [address] Dr. Yvette Wilcox Cryptosporidium Not detected Normal NOT DETECTED [facility] Comment on above: Performed By: #### C BCMAN #### [facility] [address] [place] [address] Dr. Yvette Wilcox Cyclos. Cayetanensis Not detected Normal NOT DETECTED [facility] Comment on above: Performed By: #### C BCMAN #### [facility] [address] [place], [place] [id number] Dr. Yvette Wilcox E. Coli O157 Not Applicable Normal Not Applicable [facility] Comment on above: Performed By: #### C BCMAN #### [facility] [address] [place] [address] Dr. Yvette Wilcox E. histolytica Not detected Normal NOT DETECTED The [facility] Comment on above: Performed By: #### C BCMAN #### [facility] [address] [place] [address] Dr. Yvette Wilcox EAEC Not detected Normal NOT DETECTED [facility] Comment on above: Performed By: #### C BCMAN #### [facility] [address] [place] [address] Dr. Yvette Wilcox EIEC Not detected Normal NOT DETECTED [facility] Comment on above: Performed By: #### C BCMAN #### [facility] [address] [place] [address] Dr. Yvette Wilcox EPEC Not detected Normal NOT DETECTED [facility] Comment on above: Performed By: #### C BCMAN #### [facility] [address] [place] [address] Dr. Yvette Wilcox ETEC Not detected Normal NOT DETECTED [facility] Comment on above: Performed By: #### C BCMAN #### [facility] [address] [place] [address] Dr. Yvette Wilcox G. Lamblia Not detected Normal NOT DETECTED [facility] Comment on above: Performed By: #### C BCMAN #### [facility] [address] [place] [address] Dr. Yvette ANDINOL CONTROLS PASSED Normal The [facility] Comment on above: Performed By: #### C BCMAN #### [facility] [address] [place] [address] Dr. Yvette YOUSIF CHELSY HEADER GI PANEL BACTERIA Normal T [facility] Comment on above: Performed By: #### C BCMAN #### [facility] [address] [place] [address] Dr. Yvette YOUSIFHD ECOLI GI PANEL DIARRHEAGEN IC E.COLI / SHIGELLA Normal [facility] Comment on above: Performed By: #### C BCMAN #### [facility] [address] [address] [address] Yvette MOSES INFO SEE BELOW Normal [facility] Comment on above: Result Comment: EAEC - Enteroaggregative E. Coli EPEC- Enteropathogenic E. Coli ETEC- Enterotoxigenic E. Coli lt/st STEC- Shigella-like toxin-producing E. Coli stx1/stx2 EIEC- Shigella/Enteroinvasive E. Coli Performed By: #### C BCMAN #### [facility] [address] [address] [address] Yvette MOSES PARASITES GI PANEL PARASITES Normal [facility] Comment on above: Performed By: #### C BCMAN #### [facility] [address] [address] [address] Yvette MOSES VIRUS GI PANEL VIRUSES Normal [facility] Comment on above: Performed By: #### C BCMAN #### [facility] [address] [place] [address] Dr. Yvette Wilcox Norovirus GI/GII Not detected Normal NOT DETECTED [facility] Comment on above: Performed By: #### C BCMAN #### [facility] [address] [place] [address] Dr. Yvette Wilcox P. Shigelloides Not detected Normal NOT DETECTED [facility] Comment on above: Performed By: #### C BCMAN #### [facility] [address] [address] [address] Yvette Wilcox Rotavirus A Not detected Normal NOT DETECTED [facility] Comment on above: Performed By: #### C BCMAN #### [facility] [address] [address] [address] Yvette Wilcox Salmonella Not detected Normal NOT DETECTED [facility] Comment on above: Performed By: #### C BCMAN #### [facility] [address] [place] [address] Dr. Yvette Wilcox Sapovirus Not detected Normal NOT DETECTED [facility] Comment on above: Performed By: #### C BCMAN #### [facility] [address] [place] [address] Dr. Yvette Wilcox STEC Not detected Normal NOT DETECTED [facility] Comment on above: Performed By: #### C BCMAN #### [facility] [address] [place] [address] Dr. Yvette Wilcox Vibrio Not detected Normal NOT DETECTED [facility] Comment on above: Performed By: #### C BCMAN #### [facility] [address] [place] [address] Dr. Yvette Wilcox Vibrio Cholera Not detected Normal NOT DETECTED The [facility] Comment on above: Performed By: #### C BCMAN #### [facility] [address] [place] [address] Dr. Yvette Wilcox Y. Enterocolitica Not detected Normal NOT DETECTED [facility] Comment on above: Performed By: #### C BCMAN #### [facility] [address] [place] [address] Dr. Yvette Wilcox CBC AUTO DIFFon 08-01-2022 BASO # 0.0 103/ul Normal 0.0-0.1 [facility] Comment on above: Performed By: #### C BC #### [facility] [address] [place] [address] Dr. Yvette Wilcox Basophils/100 WBC (Bld) 0.1 % Critically low 0.2-2.0 [facility] Comment on above: Performed By: #### C BC #### [facility] [address] [place] [address] Dr. Yvette Wilcox EO # 0.0 103/ul Normal 0.0-0.7 [facility] Comment on above: Performed By: #### C BC #### [facility] [address] [place] [address] Dr. Yvette Wilcox Eosinophils/100 WBC (Bld) 0.0 % Critically low 0.9-7.0 [facility] Comment on above: Performed By: #### C BC #### [facility] [address] [place] [address] Dr. Yvette Wilcox Erythrocyte distribution width (RBC) [Ratio] 13.2 % Normal 11.0-15.0 [facility] Comment on above: Performed By: #### C BC #### [facility] [address] [place] [address] Dr. Yvette Wilcox Hematocrit (Bld) [Volume fraction] 33.1 % Critically low 36.0-48.0 [facility] Comment on above: Performed By: #### C BC #### [facility] [address] [place] [address] Dr. Yvette Wilcox Hemoglobin (Bld) [Mass/Vol] 10.9 g/dL Critically low 12.0-16.0 [facility] Comment on above: Performed By: #### C BC #### [facility] [address] [place] [address] Dr. Yvette Wilcox IG # 0.16 10e3/ul Critically high 0.00-0.03 [facility] Comment on above: Performed By: #### C BC #### [facility] [address] [place] [address] Dr. Yvette Wilcox IG % 1.0 % Critically high 0.0-0.5 [facility] Comment on above: Performed By: #### C BC #### [facility] [address] [place] [address] Dr. Yvette Wilcox LYMPH # 1.1 103/ul Critically low 1.2-3.8 [facility] Comment on above: Performed By: #### C BC #### [facility] [address] [place] [address] Dr. Yvette Wilcox Lymphocytes/100 WBC (Bld) 7.3 % Critically low 20.5-60.0 [facility] Comment on above: Performed By: #### C BC #### [facility] [address] [place] [address] Dr. Yvette Wilcox MANUAL DIFF REQ NO Normal [facility] Comment on above: Performed By: #### C BC #### [facility] [address] [place] [address] Dr. Yvette Wilcox MCH (RBC) [Entitic mass] 28.8 pg Normal 26.7-34.0 [facility] Comment on above: Performed By: #### C BC #### [facility] [address] [place] [address] Dr. Yvette Wilcox MCHC (RBC) [Mass/Vol] 32.9 g/dL Normal 29.9-35.2 [facility] Comment on above: Performed By: #### C BC #### [facility] [address] [place] [address] Dr. Yvette Wilcox MCV (RBC) [Entitic vol] 87.6 fL Normal 81.0-99.0 [facility] Comment on above: Performed By: #### C BC #### [facility] [address] [place] [address] Dr. Yvette Wilcox MONO # 0.8 103/ul Normal 0.3-0.8 [facility] Comment on above: Performed By: #### C BC #### [facility] [address] [place] [address] Dr. Yvette Wilcox Monocytes/100 WBC (Bld) 5.3 % Normal 1.7-12.0 [facility] Comment on above: Performed By: #### C BC #### [facility] [address] [place] [address] Dr. Yvette Wilcox NEUT # 13.3 103/ul Critically high 1.4-6.5 [facility] Comment on above: Performed By: #### C BC #### [facility] [address] [place] [address] Dr. Yvette Wilcox Neutrophils/100 WBC (Bld) 86.3 % Critically high 43.0-75.0 [facility] Comment on above: Performed By: #### C BC #### [facility] [address] [place] [address] Dr. Yvette Wilcox Platelet mean volume (Bld) [Entitic vol] 10.5 fL Normal 9.5-13.5 [facility] Comment on above: Performed By: #### C BC #### [facility] [address] [place] [address] Dr. Yvette Wilcox PLT 285 103/ul Normal 150-450 [facility] Comment on above: Performed By: #### C BC #### [facility] [address] [address] [address] Yvette Wilcox RBC 3.78 106/ul Critically low 4.20-5.40 [facility] Comment on above: Performed By: #### C BC #### [facility] [address] [address] [address] Yvette Wilcox WBC 15.4 103/ul Critically high 4.0-11.0 [facility] Comment on above: Performed By: #### C BC #### [facility] [address] [place] [address] Dr. Yvette Wilcox CRPon 08-01-2022 CRP 7.9 mg/dL Critically high <=1.0 [facility] Comment on above: Performed By: #### C NANIMAN #### [facility] [address] [place] [address] Dr. Yvette Wilcox PROF 14(COMP METB)on 022 Albumin [Mass/Vol] 2.5 g/dL Critically low 3.4-5.0 [facility] Comment on above: Performed By: #### C NANIMAN #### [facility] [address] [place] [address] Dr. Yvette Wilcox Albumin/Globulin [Mass ratio] 0.8 {ratio} Normal [facility] Comment on above: Performed By: #### C NANIMAN #### [facility] [address] [address] [address] Yvette Wilcox ALP [Catalytic activity/Vol] 61 U/L Normal 46-116 [facility] Comment on above: Performed By: #### C BCMAN #### [facility] [address] [place] [address] Dr. Yvette Wilcox ALT [Catalytic activity/Vol] 35 U/L Normal 14-59 [facility] Comment on above: Performed By: #### C NANIMAN #### [facility] [address] [place] [address] Dr. Yvette Wilcox Anion gap [Moles/Vol] 10.9 mmol/L Normal [facility] Comment on above: Performed By: #### C BCMAN #### [facility] [address] [address] [address] Yvette Wilcox AST [Catalytic activity/Vol] 19 U/L Normal 15-37 [facility] Comment on above: Performed By: #### C BCMAN #### [facility] [address] [address] [address] Yvette Wilcox Bilirubin [Mass/Vol] 0.2 mg/dL Normal 0.2-1.0 [facility] Comment on above: Performed By: #### C BCCATHIE #### [facility] [address] [place] [address] Dr. Yvette Wilcox Calcium [Mass/Vol] 8.1 mg/dL Critically low 8.5-10.1 [facility] Comment on above: Performed By: #### C BCCATHIE #### [facility] [address] [place] [address] Dr. Yvette Wilcox Chloride [Moles/Vol] 110 mmol/L Critically high 98-107 [facility] Comment on above: Performed By: #### C BCCATHIE #### [facility] [address] [place] [address] Dr. Yvette Wilcox CO2 [Moles/Vol] 24.5 mmol/L Normal 21.0-32.0 [facility] Comment on above: Performed By: #### C BCCATHIE #### [facility] [address] [place] [address] Dr. Yvette Wilcox Creatinine [Mass/Vol] 0.90 mg/dL Normal 0.55-1.02 [facility] Comment on above: Performed By: #### C BCCATHIE #### [facility] [address] [place] [address] Dr. Yvette Wilcox EGFR-AF PAPUA [place] GUINEAN >60 Normal >=60 [facility] Comment on above: Performed By: #### C BCCATHIE #### [facility] [address] [place] [address] Dr. Yvette Wilcox EGFR-NON AF PAPUA [place] GU[place]AN >60 Normal >=60 [facility] Comment on above: Performed By: #### C HARRIETT #### [facility] [address] [address] [address] Yvette Wilcox Globulin (S) [Mass/Vol] 3.2 g/dL Normal [facility] Comment on above: Performed By: #### C HARRIETT #### [facility] [address] [address] [address] Yvette Wilcox Glucose [Mass/Vol] 185 mg/dL Critically high 74-106 T [facility] Comment on above: Performed By: #### C HARRIETT #### [facility] [address] [address] [address] Yvette Wilcox Potassium [Moles/Vol] 3.4 mmol/L Critically low 3.5-5.1 [facility] Comment on above: Performed By: #### C HARRIETT #### [facility] [address] [address] [address] Yvette Wilcox Protein [Mass/Vol] 5.7 g/dL Critically low 6.4-8.2 [facility] Comment on above: Performed By: #### C HARRIETT #### [facility] [address] [address] [address] Yvette Wilcox Sodium [Moles/Vol] 142 mmol/L Normal 136-145 [facility] Comment on above: Performed By: #### C HARRIETT #### [facility] [address] [address] [address] Yvette Wilcox Urea nitrogen [Mass/Vol] 9.0 mg/dL Normal 7.0-18.0 [facility] Comment on above: Performed By: #### C HARRIETT #### [facility] [address] [address] [address] Yvette Wilcox Urea nitrogen/Creatinine [Mass ratio] 10.0 mg/mg Normal [facility] Comment on above: Performed By: #### C HARRIETT #### [facility] [address] [address] [address] Yvette Wilcox CBC AUTO DIFFon 07-31-2022 BASO # 0.1 103/ul Normal 0.0-0.1 [facility] Comment on above: Performed By: #### C BCCATHIE #### [facility] [address] [address] [address] Yvette Wilcox Basophils/100 WBC (Bld) 0.3 % Normal 0.2-2.0 [facility] Comment on above: Performed By: #### C BCMAN #### [facility] [address] [place] [address] Dr. Yvette Wilcox EO # 0.0 103/ul Normal 0.0-0.7 [facility] Comment on above: Performed By: #### C HARRIETT #### [facility] [address] [place] [address] Dr. Yvette Wilcox Eosinophils/100 WBC (Bld) 0.2 % Critically low 0.9-7.0 [facility] Comment on above: Performed By: #### C HARRIETT #### [facility] [address] [place] [address] Dr. Yvette Wilcox Erythrocyte distribution width (RBC) [Ratio] 13.3 % Normal 11.0-15.0 [facility] Comment on above: Performed By: #### C BCCATHIE #### [facility] [address] [place] [address] Dr. Yvette Wilcox Hematocrit (Bld) [Volume fraction] 34.8 % Critically low 36.0-48.0 [facility] Comment on above: Performed By: #### C BCCATHIE #### [facility] [address] [place] [address] Dr. Yvette Wilcox Hemoglobin (Bld) [Mass/Vol] 11.6 g/dL Critically low 12.0-16.0 [facility] Comment on above: Performed By: #### C BCCATHIE #### [facility] [address] [place] [address] Dr. Yvette Wilcox IG # 0.08 10e3/ul Critically high 0.00-0.03 [facility] Comment on above: Performed By: #### C HARRIETT #### [facility] [address] [place] [address] Dr. Yvette Wilcox IG % 0.5 % Normal 0.0-0.5 [facility] Comment on above: Performed By: #### C BCCATHIE #### [facility] [address] [address] [address] Yvette Wilcox LYMPH # 2.1 103/ul Normal 1.2-3.8 [facility] Comment on above: Performed By: #### C HARRIETT #### [facility] [address] [address] [address] Yvette Wilcox Lymphocytes/100 WBC (Bld) 13.1 % Critically low 20.5-60.0 [facility] Comment on above: Performed By: #### C HARRIETT #### [facility] [address] [place] [address] Dr. Yvette Wilcox MANUAL DIFF REQ NO Normal [facility] Comment on above: Performed By: #### C HARRIETT #### [facility] [address] [place] [address] Dr. Yvette Wilcox MCH (RBC) [Entitic mass] 29.4 pg Normal 26.7-34.0 [facility] Comment on above: Performed By: #### C HARRIETT #### [facility] [address] [place] [address] Dr. Yvette Wilcox MCHC (RBC) [Mass/Vol] 33.3 g/dL Normal 29.9-35.2 [facility] Comment on above: Performed By: #### C HARRIETT #### [facility] [address] [place] [address] Dr. Yvette Wilcox MCV (RBC) [Entitic vol] 88.1 fL Normal 81.0-99.0 [facility] Comment on above: Performed By: #### C HARRIETT #### [facility] [address] [place] [address] Dr. Yvette Wilcox MONO # 1.4 103/ul Critically high 0.3-0.8 [facility] Comment on above: Performed By: #### C HARRIETT #### [facility] [address] [address] [address] Yvette Wilcox Monocytes/100 WBC (Bld) 8.7 % Normal 1.7-12.0 [facility] Comment on above: Performed By: #### C BCCATHIE #### [facility] [address] [address] [address] Yvette Wilcox NEUT # 12.3 103/ul Critically high 1.4-6.5 [facility] Comment on above: Performed By: #### C HARRIETT #### [facility] [address] [address] [address] Yvette Wilcox Neutrophils/100 WBC (Bld) 77.2 % Critically high 43.0-75.0 [facility] Comment on above: Performed By: #### C HARRIETT #### [facility] [address] [place] [address] Dr. Yvette Wilcox Platelet mean volume (Bld) [Entitic vol] 10.3 fL Normal 9.5-13.5 [facility] Comment on above: Performed By: #### C HARRIETT #### [facility] [address] [address] [address] Yvette Wilcox PLT 254 103/ul Normal 150-450 [facility] Comment on above: Performed By: #### C HARRIETT #### [facility] [address] [place] [address] Dr. Yvette Wilcox RBC 3.95 106/ul Critically low 4.20-5.40 [facility] Comment on above: Performed By: #### C HARRIETT #### [facility] [address] [place] [address] Dr. Yvette Wilcox WBC 15.9 103/ul Critically high 4.0-11.0 [facility] Comment on above: Performed By: #### C HARRIETT #### [facility] [address] [place], [place] [address] Dr. Yvette Wilcox CRPon 07-31-2022 CRP 12.3 mg/dL Critically high <=1.0 [facility] Comment on above: Performed By: #### C HARRIETT #### [facility] [address] [place] [address] Dr. Yvette Wilcox PROF 14(COMP METB)on 09-16-2 022 Albumin [Mass/Vol] 2.7 g/dL Critically low 3.4-5.0 [facility] Comment on above: Performed By: #### I NSULIN #### [facility] [address] [place] [address] Dr. Yvette Wilcox Albumin/Globulin [Mass ratio] 0.8 {ratio} Normal [facility] Comment on above: Performed By: #### I NSULIN #### [facility] [address] [address] [address] Yvette Wilcox ALP [Catalytic activity/Vol] 46 U/L Normal 46-116 [facility] Comment on above: Performed By: #### I NSULIN #### [facility] [address] [place] [address] Dr. Yvette Wilcox ALT [Catalytic activity/Vol] 25 U/L Normal 14-59 [facility] Comment on above: Performed By: #### I NSULIN #### [facility] [address] [place] [address] Dr. Yvette Wilcox Anion gap [Moles/Vol] 7.7 mmol/L Normal [facility] Comment on above: Performed By: #### I NSULIN #### [facility] [address] [place] [address] Dr. Yvette Wilcox AST [Catalytic activity/Vol] 12 U/L Critically low 15-37 [facility] Comment on above: Performed By: #### I NSULIN #### [facility] [address] [place] [address] Dr. Yvette Wilcox Bilirubin [Mass/Vol] 0.4 mg/dL Normal 0.2-1.0 [facility] Comment on above: Performed By: #### I NSULIN #### [facility] [address] [place] [address] Dr. Yvette Wilcox Calcium [Mass/Vol] 8.0 mg/dL Critically low 8.5-10.1 [facility] Comment on above: Performed By: #### I NSULIN #### [facility] [address] [place] [address] Dr. Yvette Wilcox Chloride [Moles/Vol] 107 mmol/L Normal 98-107 [facility] Comment on above: Performed By: #### I NSULIN #### [facility] [address] [address] [address] Yvette Wilcox CO2 [Moles/Vol] 27.4 mmol/L Normal 21.0-32.0 [facility] Comment on above: Performed By: #### I NSULIN #### [facility] [address] [address] [address] Yvette Wilcox Creatinine [Mass/Vol] 1.05 mg/dL Critically high 0.55-1.02 [facility] Comment on above: Performed By: #### I NSULIN #### [facility] [address] [place] [address] Dr. Yvette Wilcox EGFR-AF PAPUA NEW GUINEAN >60 Normal >=60 [facility] Comment on above: Performed By: #### I NSULIN #### [facility] [address] [address] [address] Yvette Wilcox EGFR-NON AF PAPUA NEW GUINEAN 54 mL/min/1.73m2 Critically low >=60 [facility] Comment on above: Performed By: #### I NSULIN #### [facility] [address] [place] [address] Dr. Yvette Wilcox Globulin (S) [Mass/Vol] 3.3 g/dL Normal [facility] Comment on above: Performed By: #### I NSULIN #### [facility] [address] [address] [address] Yvette Wilcox Glucose [Mass/Vol] 146 mg/dL Critically high 74-106 [facility] Comment on above: Performed By: #### I NSULIN #### [facility] [address] [address] [address] Yvette Wilcox Potassium [Moles/Vol] 3.1 mmol/L Critically low 3.5-5.1 [facility] Comment on above: Performed By: #### I NSULIN #### [facility] [address] [address] [address] Yvette Wilcox Protein [Mass/Vol] 6.0 g/dL Critically low 6.4-8.2 Th e [facility] Comment on above: Performed By: #### I NSULIN #### [facility] [address] [place] [address] Dr. Yvette Wilcox Sodium [Moles/Vol] 139 mmol/L Normal 136-145 [facility] Comment on above: Performed By: #### I NSULIN #### [facility] [address] [place] [address] Dr. Yvette Wilcox Urea nitrogen [Mass/Vol] 5.0 mg/dL Critically low 7.0-18.0 [facility] Comment on above: Performed By: #### I NSULIN #### [facility] [address] [place] [address] Dr. Yvette Wilcox Urea nitrogen/Creatinine [Mass ratio] 4.8 mg/mg Normal [facility] Comment on above: Performed By: #### I NSULIN #### [facility] [address] [place] [address] Dr. Yvette Wilcox CBC AUTO DIFFon 07-30-2022 BASO # 0.1 103/ul Normal 0.0-0.1 [facility] Comment on above: Performed By: #### I NSULIN #### [facility] [address] [place] [address] Dr. Yvette Wilcox Basophils/100 WBC (Bld) 0.3 % Normal 0.2-2.0 [facility] Comment on above: Performed By: #### I NSULIN #### [facility] [address] [place] [address] Dr. Yvette Wilcox EO # 0.0 103/ul Normal 0.0-0.7 [facility] Comment on above: Performed By: #### I NSULIN #### [facility] [address] [place] [address] Dr. Yvette Wilcox Eosinophils/100 WBC (Bld) 0.2 % Critically low 0.9-7.0 [facility] Comment on above: Performed By: #### I NSULIN #### [facility] [address] [place] [address] Dr. Yvette Wilcox Erythrocyte distribution width (RBC) [Ratio] 13.3 % Normal 11.0-15.0 [facility] Comment on above: Performed By: #### I NSULIN #### [facility] [address] [place] [address] Dr. Yvette Wilcox Hematocrit (Bld) [Volume fraction] 36.5 % Normal 36.0-48.0 [facility] Comment on above: Performed By: #### I NSULIN #### [facility] [address] [place] [address] Dr. Yvette Wilcox Hemoglobin (Bld) [Mass/Vol] 12.3 g/dL Normal 12.0-16.0 [facility] Comment on above: Performed By: #### I NSULIN #### [facility] [address] [place] [address] Dr. Yvette Wilcox IG # 0.05 10e3/ul Critically high 0.00-0.03 [facility] Comment on above: Performed By: #### I NSULIN #### [facility] [address] [place] [address] Dr. Yvette Wilcox IG % 0.3 % Normal 0.0-0.5 [facility] Comment on above: Performed By: #### I NSULIN #### [facility] [address] [place] [address] Dr. Yvette Wilcox LYMPH # 1.8 103/ul Normal 1.2-3.8 [facility] Comment on above: Performed By: #### I NSULIN #### [facility] [address] [place] [address] Dr. Yvette Wilcox Lymphocytes/100 WBC (Bld) 11.8 % Critically low 20.5-60.0 [facility] Comment on above: Performed By: #### I NSULIN #### [facility] [address] [place] [address] Dr. Yvette Wilcox MANUAL DIFF REQ NO Normal [facility] Comment on above: Performed By: #### I NSULIN #### [facility] [address] [place] [address] Dr. Yvette Wilcox MCH (RBC) [Entitic mass] 29.4 pg Normal 26.7-34.0 [facility] Comment on above: Performed By: #### I NSULIN #### [facility] [address] [place] [address] Dr. Yvette Wlicox MCHC (RBC) [Mass/Vol] 33.7 g/dL Normal 29.9-35.2 [facility] Comment on above: Performed By: #### I NSULIN #### [facility] [address] [place] [address] Dr. Yvette Wilcox MCV (RBC) [Entitic vol] 87.3 fL Normal 81.0-99.0 [facility] Comment on above: Performed By: #### I NSULIN #### [facility] [address] [place] [address] Dr. Yvette Wilcox MONO # 1.3 103/ul Critically high 0.3-0.8 [facility] Comment on above: Performed By: #### I NSULIN #### [facility] [address] [place] [address] Dr. Yvette Wilcox Monocytes/100 WBC (Bld) 8.1 % Normal 1.7-12.0 [facility] Comment on above: Performed By: #### I NSULIN #### [facility] [address] [place] [address] Dr. Yvette Wilcox NEUT # 12.3 103/ul Critically high 1.4-6.5 [facility] Comment on above: Performed By: #### I NSULIN #### [facility] [address] [place] [address] Dr. Yvette Wilcox Neutrophils/100 WBC (Bld) 79.3 % Critically high 43.0-75.0 [facility] Comment on above: Performed By: #### I NSULIN #### [facility] [address] [place] [address] Dr. Yvette Wilcox Platelet mean volume (Bld) [Entitic vol] 9.8 fL Normal 9.5-13.5 [facility] Comment on above: Performed By: #### I NSULIN #### [facility] [address] [place] [address] Dr. Yvette Wilcox PLT 263 103/ul Normal 150-450 [facility] Comment on above: Performed By: #### I NSULIN #### [facility] [address] [place] [address] Dr. Yvette Wilcox RBC 4.18 106/ul Critically low 4.20-5.40 [facility] Comment on above: Performed By: #### I NSULIN #### [facility] [address] [place] [address] Dr. Yvette Wilcox WBC 15.5 103/ul Critically high 4.0-11.0 [facility] Comment on above: Performed By: #### I NSULIN #### [facility] [address] [place] [address] Dr. Yvette Wilcox BASO # 0.0 103/ul Normal 0.0-0.1 [facility] Comment on above: Performed By: #### C BC #### [facility] [address] [place] [address] Dr. Yvette Wilcox Basophils/100 WBC (Bld) 0.2 % Normal 0.2-2.0 [facility] Comment on above: Performed By: #### C BC #### [facility] [address] [place] [address] Dr. Yvette Wilcox EO # 0.0 103/ul Normal 0.0-0.7 [facility] Comment on above: Performed By: #### C BC #### [facility] [address] [place] [address] Dr. Yvette Wilcox Eosinophils/100 WBC (Bld) 0.1 % Critically low 0.9-7.0 [facility] Comment on above: Performed By: #### C BC #### [facility] [address] [place] [address] Dr. Yvette Wilcox Erythrocyte distribution width (RBC) [Ratio] 13.3 % Normal 11.0-15.0 [facility] Comment on above: Performed By: #### C BC #### [facility] [address] [place] [address] Dr. Yvette Wilcox Hematocrit (Bld) [Volume fraction] 37.9 % Normal 36.0-48.0 [facility] Comment on above: Performed By: #### C BC #### [facility] [address] [place] [address] Dr. Yvette Wilcox Hemoglobin (Bld) [Mass/Vol] 12.7 g/dL Normal 12.0-16.0 [facility] Comment on above: Performed By: #### C BC #### [facility] [address] [place] [address] Dr. Yvette Wilcox IG # 0.07 10e3/ul Critically high 0.00-0.03 [facility] Comment on above: Performed By: #### C BC #### [facility] [address] [place] [address] Dr. Yvette Wilcox IG % 0.5 % Normal 0.0-0.5 [facility] Comment on above: Performed By: #### C BC #### [facility] [address] [place] [address] Dr. Yvette Wilcox LYMPH # 1.7 103/ul Normal 1.2-3.8 [facility] Comment on above: Performed By: #### C BC #### [facility] [address] [place] [address] Dr. Yvette Wilcox Lymphocytes/100 WBC (Bld) 11.1 % Critically low 20.5-60.0 [facility] Comment on above: Performed By: #### C BC #### [facility] [address] [place] [address] Dr. Yvette Wilcox MANUAL DIFF REQ NO Normal [facility] Comment on above: Performed By: #### C BC #### [facility] [address] [place] [address] Dr. Yvette Wilcox MCH (RBC) [Entitic mass] 29.3 pg Normal 26.7-34.0 [facility] Comment on above: Performed By: #### C BC #### [facility] [address] [place] [address] Dr. Yvette Wilcox MCHC (RBC) [Mass/Vol] 33.5 g/dL Normal 29.9-35.2 [facility] Comment on above: Performed By: #### C BC #### [facility] [address] [address] [address] Yvette Wilcox MCV (RBC) [Entitic vol] 87.5 fL Normal 81.0-99.0 [facility] Comment on above: Performed By: #### C BC #### [facility] [address] [address] [address] Yvette Wilcox MONO # 1.4 103/ul Critically high 0.3-0.8 [facility] Comment on above: Performed By: #### C BC #### [facility] [address] [address] [address] Yvette Wilcox Monocytes/100 WBC (Bld) 8.9 % Normal 1.7-12.0 [facility] Comment on above: Performed By: #### C BC #### [facility] [address] [address] [address] Yvette Wilcox NEUT # 12.1 103/ul Critically high 1.4-6.5 [facility] Comment on above: Performed By: #### C BC #### [facility] [address] [address] [address] Yvette Wilcox Neutrophils/100 WBC (Bld) 79.2 % Critically high 43.0-75.0 [facility] Comment on above: Performed By: #### C BC #### [facility] [address] [address] [address] Yvette Wilcox Platelet mean volume (Bld) [Entitic vol] 10.0 fL Normal 9.5-13.5 [facility] Comment on above: Performed By: #### C BC #### [facility] [address] [address] [address] Yvette Wilcox PLT 268 103/ul Normal 150-450 [facility] Comment on above: Performed By: #### C BC #### [facility] [address] [address] [address] Yvette Wilcox RBC 4.33 106/ul Normal 4.20-5.40 [facility] Comment on above: Performed By: #### C BC #### [facility] [address] [place] [address] Dr. Yvette Wilcox WBC 15.3 103/ul Critically high 4.0-11.0 [facility] Comment on above: Performed By: #### C BC #### [facility] [address] [place] [address] Dr. Yvette Wilcox HEMOGLOBIN AND HEMATOCRITon 07-30-2022 Hematocrit (Bld) [Volume fraction] 38.9 % Normal 36.0-48.0 [facility] Comment on above: Performed By: #### C VDTBH #### [facility] [address] [place] [address] Dr. Yvette Wilcox Hemoglobin (Bld) [Mass/Vol] 13.0 g/dL Normal 12.0-16.0 [facility] Comment on above: Performed By: #### C VDTBH #### [facility] [address] [place] [address] Dr. Yvette Wilcox Hematocrit (Bld) [Volume fraction] 38.1 % Normal 36.0-48.0 [facility] Comment on above: Performed By: #### H GBHCT #### [facility] [address] [place] [address] Dr. Yvette Wilcox Hemoglobin (Bld) [Mass/Vol] 12.9 g/dL Normal 12.0-16.0 [facility] Comment on above: Performed By: #### H GBHCT #### [facility] [address] [place] [address] Dr. Yvette Wilcox PROF CHEM 8 (BAS METB)on Anion gap [Moles/Vol] 10.3 mmol/L Normal [facility] Comment on above: Performed By: #### C BCMAN #### [facility] [address] [place] [address] Dr. Yvette Wilcox Calcium [Mass/Vol] 8.4 mg/dL Critically low 8.5-10.1 [facility] Comment on above: Performed By: #### C BCMAN #### [facility] [address] [place], [place] [id number] Dr. Yvette Wilcox Chloride [Moles/Vol] 108 mmol/L Critically high 98-107 [facility] Comment on above: Performed By: #### C HARRIETT #### [facility] [address] [address] [address] Yvette Wilcox CO2 [Moles/Vol] 25.0 mmol/L Normal 21.0-32.0 [facility] Comment on above: Performed By: #### C HARRIETT #### [facility] [address] [address] [address] Yvette Wilcox Creatinine [Mass/Vol] 0.91 mg/dL Normal 0.55-1.02 [facility] Comment on above: Performed By: #### C HARRIETT #### [facility] [address] [place] [address] Dr. Yvette Wilcox EGFR-AF PAPUA NEW GUINEAN >60 Normal >=60 [facility] Comment on above: Performed By: #### C HARRIETT #### [facility] [address] [place] [address] Dr. Yvette Wilcox EGFR-NON AF PAPUA [place] GU[place]AN >60 Normal >=60 [facility] Comment on above: Performed By: #### C HARRIETT #### [facility] [address] [address] [address] Yvette Wilcox Glucose [Mass/Vol] 164 mg/dL Critically high 74-106 [facility] Comment on above: Performed By: #### C HARRIETT #### [facility] [address] [address] [address] Yvette Wilcox Potassium [Moles/Vol] 3.3 mmol/L Critically low 3.5-5.1 [facility] Comment on above: Performed By: #### C HARRIETT #### [facility] [address] [place] [address] Dr. Yvette Wilcox Sodium [Moles/Vol] 140 mmol/L Normal 136-145 [facility] Comment on above: Performed By: #### C HARRIETT #### [facility] [address] [address] [address] Yvette Wilcox Urea nitrogen [Mass/Vol] 7.0 mg/dL Normal 7.0-18.0 [facility] Comment on above: Performed By: #### Chelsea LORENZANA #### [facility] [address] [place] [address] Dr. Yvette Wilcox Urea nitrogen/Creatinine [Mass ratio] 7.7 mg/mg Normal [facility] Comment on above: Performed By: #### Chelsea LORENZANA #### [facility] [address] [place] [address] Dr. Yvette Wilcox PROTIMEon 07-30-2022 INR Coag (PPP) [Relative time] 1.02 {INR} Normal [facility] Comment on above: Performed By: #### C GENTRY #### [facility] [address] [place] [address] Dr. Yvette Wilcox INR GUIDELINES SEE BELOW Normal [facility] Comment on above: Result Comment: AL RED INR: 2.0 - 3.0 CONDITIONS NOT LISTED BELOW 2.5 - 3.5 FOR PROSTHETIC HEART VALVE REPLACEMENT 2.5 - 3.5 RECURRENT THROMBOSIS Performed By: #### Chelsea RINALDI #### [facility] [address] [place] [address] Dr. Yvette Wilcox PT Coag (PPP) [Time] 11.0 s Normal 9.0-11.6 [facility] Comment on above: Performed By: #### Chelsea SCHWARZTBH #### [facility] [address] [place] [address] Dr. Yvette Wilcox AMYLASEon 07-29-2022 Amylase [Catalytic activity/Vol] 39 U/L Normal 25-115 [facility] Comment on above: Performed By: #### C CHONGTBH #### [facility] [address] [place] [address] Dr. Yvette Wilcox CBC W MANUAL DIFFon 07-29-20 22 ATYPICAL LYMPH # Normal [facility] Comment on above: Performed By: #### Chelsea LORENZANA #### [facility] [address] [place] [address] Dr. Yvette Wilcox ATYPICAL LYMPH % Normal [facility] Comment on above: Performed By: #### Chelsea LORENZANA #### [facility] [address] [place] [address] Dr. Yvette Wilcox BAND # Normal 0.0-0.3 [facility] Comment on above: Performed By: #### C BCMAN #### [facility] [address] [place] [address] Dr. Yvette Wilcox BAND % Normal 0-5 [facility] Comment on above: Performed By: #### C HARRIETT #### [facility] [address] [place] [address] Dr. Yvette Wilcox BASOM # 0.00 103/ul Normal 0.00-0.10 [facility] Comment on above: Performed By: #### C HARRIETT #### [facility] [address] [place] [address] Dr. Yvette iWlcox BASOM % 0.0 % Critically low 0.2-2.0 [facility] Comment on above: Performed By: #### C HARRIETT #### [facility] [address] [place] [address] Dr. Yvette Wilcox BLAST # Normal [facility] Comment on above: Performed By: #### C HARRIETT #### [facility] [address] [place] [address] Dr. Yvette Wilcox BLAST % Normal [facility] Comment on above: Performed By: #### C HARRIETT #### [facility] [address] [place] [address] Dr. Yvette Wilcox CORRECTED WBC Normal 4.0-11.0 The [facility] Comment on above: Performed By: #### C HARRIETT #### [facility] [address] [place] [address] Dr. Yvette Wilcox EOS # 0.00 103/ul Normal 0.00-0.70 [facility] Comment on above: Performed By: #### C HARRIETT #### [facility] [address] [place] [address] Dr. Yvette Wilcox EOS% 0.0 % Critically low 0.9-7.0 [facility] Comment on above: Performed By: #### C HARRIETT #### [facility] [address] [place] [address] Dr. Yvette Wilcox HCT 43.6 % Normal 36.0-48.0 [facility] Comment on above: Performed By: #### C HARRIETT #### [facility] [address] [place] [address] Dr. Yvette Wilcox HGB 14.8 g/dl Normal 12.0-16.0 [facility] Comment on above: Performed By: #### C HARRIETT #### [facility] [address] [place] [address] Dr. Yvette Wilcox LYMPHM # 0.94 103/ul Critically low 1.20-3.80 [facility] Comment on above: Performed By: #### C HARRIETT #### [facility] [address] [place] [address] Dr. Yvette Wilcox LYMPHM% 5.0 % Critically low 20.5-60.0 [facility] Comment on above: Performed By: #### C HARRIETT #### [facility] [address] [place] [address] Dr. Yvette Wilcox MCH 29.1 pg Normal 26.7-34.0 [facility] Comment on above: Performed By: #### C HARRIETT #### [facility] [address] [place] [address] Dr. Yvette Wilcox MCHC 33.9 g/dl Normal 29.9-35.2 [facility] Comment on above: Performed By: #### C HARRIETT #### [facility] [address] [place] [address] Dr. Yvette Wilcox MCV 85.8 fL Normal 81.0-99.0 [facility] Comment on above: Performed By: #### C HARRIETT #### [facility] [address] [place] [address] Dr. Yvette Wilcox METAMYELOCYTE # Normal [facility] Comment on above: Performed By: #### C HARRIETT #### [facility] [address] [place] [address] Dr. Yvette Wilcox METAMYELOCYTE % Normal [facility] Comment on above: Performed By: #### C HARRIETT #### [facility] [address] [address] [address] Yvette Wilcox MONOM# 1.13 103/ul Critically high 0.30-0.80 [facility] Comment on above: Performed By: #### C HARRIETT #### [facility] [address] [place] [address] Dr. Yvette Wilcox MONOM% 6.0 % Normal 1.7-12.0 [facility] [facility] Comment on above: Performed By: #### C HARRIETT #### [facility] [address] [address] [address] Yvette Wilcox MPV 10.3 fL Normal 9.5-13.5 [facility] Comment on above: Performed By: #### C HARRIETT #### [facility] [address] [place] [address] Dr. Yvette Wilcox MYELOCYTE # Normal [facility] Comment on above: Performed By: #### Chelsea LORENZANA #### [facility] [address] [place] [address] Dr. Yvette Wilcox MYELOCYTE % Normal [facility] Comment on above: Performed By: #### Chelsea LORENZANA #### [facility] [address] [place] [address] Dr. Yvette Wilcox NRBC Normal [facility] Comment on above: Performed By: #### Chelsea LORENZANA #### [facility] [address] [place] [address] Dr. Yvette Wilcox PLT 344 103/ul Normal 150-450 [facility] Comment on above: Performed By: #### C HARRIETT #### [facility] [address] [place] [address] Dr. Yvette Wilcox RBC 5.08 106/ul Normal 4.20-5.40 [facility] Comment on above: Performed By: #### C HARRIETT #### [facility] [address] [place] [address] Dr. Yvette Wilcox RDW 13.1 % Normal 11.0-15.0 [facility] Comment on above: Performed By: #### C HARRIETT #### [facility] [address], [place] [address] Dr. Yvette Wilcox SEG # 16.73 103/ul Critically high 1.40-6.50 [facility] Comment on above: Performed By: #### Chelsea NANICATHIE #### [facility] [address], [place] [address] Dr. Yvette Wilcox SEG % 89.0 % Critically high 43.0-75.0 [facility] Comment on above: Performed By: #### Chelsea NANICATHIE #### [facility] [address], [place] [address] Dr. Yvette Wilcox WBC 18.8 103/ul Critically high 4.0-11.0 The [facility] Comment on above: Performed By: #### C NANICATHIE #### [facility] [address], [place] [address] ABD/PELVIS WO CONon 07-29 CT ABD/PELVIS WO CON EXAMINATION: CT ABD/PELVIS WO CON, 07/29/2022 5:54 PM EDT HISTORY: Acute lower gastrointestinal hemorrhage COMPARISON: None. TECHNIQUE: CT scan of the abdomen and pelvis was performed without IV contrast. CT dose reduction technique was used, including Automated Exposure Control. FINDINGS: CT ABDOMEN: The lung bases and pleural spaces are clear. Cardiac size is normal. There is no pericardial effusion. The liver, gallbladder, pancreas, spleen, adrenal glands, kidneys, aorta, IVC, stomach, and small bowel appear grossly unremarkable, allowing for the lack of contrast. CT PELVIS: There is circumferential wall thickening with surrounding inflammatory fat stranding beginning in the distal ascending colon and extending continuously into the descending colon. The descending and rectosigmoid colon are decompressed with milder wall thickening and no surrounding inflammatory change, which may reflect colonic decompression or additional milder acute colitis. There is no pneumatosis or portal venous gas. A normal appendix is seen on image 84. The pelvic small bowel loops and decompressed urinary bladder are unremarkable. The uterus has a mildly lobular contour favoring underlying fibroids. Multiple bilateral pelvic phleboliths are noted. No free fluid, loculated fluid or free air is seen in the abdomen or pelvis. No acute osseous abnormality or suspicious bony lesion is seen. IMPRESSION: 1. Acute colitis, most prominent in the transverse colon. This is most likely infectious or inflammatory. There is no pneumatosis or portal venous gas to suggest ischemia. Precautionary lactate level could be considered. No other acute findings are seen in the abdomen or pelvis. 2. Normal appendix. 3. Suspected fibroid uterus. Electronically authenticated by: KENDELL GRIMM Date: 2022-07-29 19:07 Normal [facility]on 07-16 SARS-CoV-2 (COVID-19) RNA RANI+probe Ql (Unsp spec) Not detected Normal NOT DETECTED [facility] Comment on above: Result Comment: When diagnostic testing is negative, the possibility of a false negative should be considered in the context of a patient's recent exposures and the presence of clinical signs and symptoms consistent with SARS-CoV-2. This test is not yet approved or cleared by the [place] FDA. When there are no FDA-approved or cleared tests available, and other criteria are met, FDA can make tests available under an emergency access mechanism called an Emergency Use Authorization (EUA). The EUA for this test is supported by the [place] [employer] Service's declaration that circumstances exist to justify the emergency use of in vitro diagnostics for the detection and/or diagnosis of the virus that causes COVID-19. This EUA will remain in effect for the duration of the COVID-19 declaration justifying emergency of IVDs, unless it is terminated or revoked by the FDA (after which the test may no longer be used). Performed By: #### C VDTBH #### [facility] [address] [place] [address] Dr. Yvette Wilcox ER URINE PROFILEon 2 Bilirubin Ql (U) Negative Normal NEGATIVE The [facility] Comment on above: Performed By: #### U MICRO, ERUR #### [facility] [address] [address] [address] Yvette Wilcox Clarity (U) CLEAR Normal CLEAR [facility] Comment on above: Performed By: #### U MICRO, ERUR #### [facility] [address] [place] [address] Dr. Yvette Wilcox Color (U) LT. YELLOW Normal YELLOW [facility] Comment on above: Performed By: #### U MICRO, ERUR #### [facility] [address] [address] [address] Yvette FLORES A micrscopic examination will be performed if indicated. Normal [facility] Comment on above: Performed By: #### U MICRO, ERUR #### [facility] [address] [address] [address] Yvette Wilcox Glucose Ql (U) Negative Normal NEGATIVE [facility] Comment on above: Performed By: #### U MICRO, ERUR #### [facility] [address] [address] [address] Yvette Wilcox Hemoglobin Ql (U) Negative Normal NEGATIVE [facility] Comment on above: Performed By: #### U MICRO, ERUR #### [facility] [address] [place] [address] Dr. Yvette Wilcox Ketones Ql (U) >=80 Abnormal NEGATIVE [facility] Comment on above: Performed By: #### U MICRO, ERUR #### [facility] [address] [place] [address] Dr. Yvette Wilcox LEUKOCYTES Negative Normal NEGATIVE [facility] Comment on above: Performed By: #### U MICRO, ERUR #### [facility] [address] [address] [address] Yvette Wilcox Nitrite Ql (U) Negative Normal NEGATIVE [facility] Comment on above: Performed By: #### U MICRO, ERUR #### [facility] [address] [address] [address] Yvette Wilcox pH (U) 6.0 [pH] Normal 5-9 [facility] Comment on above: Performed By: #### U MICRO, ERUR #### [facility] [address] [address] [address] Yvette Wilcox SPEC GRAVITY 1.025 Normal 1.005-<=1.025 [facility] Comment on above: Performed By: #### U MICRO, ERUR #### [facility] [address] [address] [address] Yvette Wilcox UA PROTEIN Negative Normal NEGATIVE/ TRACE [facility] Comment on above: Performed By: #### U MICRO, ERUR #### [facility] [address] [address] [address] Yvette Wilcox UR MICRO IND INDICATED Normal [facility] Comment on above: Performed By: #### U MICRO, ERUR #### [facility] [address] [address] [address] Yvette Wilcox Urobilinogen Qn (U) 0.2 {Kami'U}/dL Normal 0.2 - 1. 0 [facility] Comment on above: Performed By: #### U MICRO, ERUR #### [facility] [address] [place] [address] Dr. Yvette Wilcox GI PANEL (PCR)on 07-29-2022 Adenovirus F 40/41 Not detected Normal NOT DETECTED [facility] Comment on above: Performed By: #### C BCMAN #### [facility] [address] [place] [address] Dr. Yvette Wilcox Astrovirus Not detected Normal NOT DETECTED [facility] Comment on above: Performed By: #### C BCMAN #### [facility] [address] [place] [address] Dr. Yvette Tran. Diff toxin A/B Not detected Normal NOT DETECTED [facility] Comment on above: Performed By: #### C BCMAN #### [facility] [address] [place] [address] Dr. Yvette Wilcox Campylobacter Not detected Normal NOT DETECTED [facility] Comment on above: Performed By: #### C BCMAN #### [facility] [address] [place] [address] Dr. Yvette Wilcox Cryptosporidium Not detected Normal NOT DETECTED [facility] Comment on above: Performed By: #### C BCMAN #### [facility] [address] [place] [address] Dr. Yvette Wilcox Cyclos. Cayetanensis Not detected Normal NOT DETECTED [facility] Comment on above: Performed By: #### C BCMAN #### [facility] [address] [place] [address] Dr. Yvette Wilcox E. Coli O157 Not Applicable Normal Not Applicable [facility] Comment on above: Performed By: #### C BCMAN #### [facility] [address] [place] [address] Dr. Yvette Wilcox E. histolytica Not detected Normal NOT DETECTED The [facility] Comment on above: Performed By: #### C BCMAN #### [facility] [address] [place] [address] Dr. Yvette Wilcox EAEC Not detected Normal NOT DETECTED [facility] Comment on above: Performed By: #### C BCMAN #### [facility] [address] [place] [address] Dr. Yvette Wilcox EIEC Not detected Normal NOT DETECTED [facility] Comment on above: Performed By: #### C BCMAN #### [facility] [address] [place] [address] Dr. Yvette Wilcox EPEC Not detected Normal NOT DETECTED [facility] Comment on above: Performed By: #### C BCMAN #### [facility] [address] [place] [address] Dr. Yvette Wilcox ETEC Not detected Normal NOT DETECTED [facility] Comment on above: Performed By: #### C BCMAN #### [facility] [address] [place] [address] Dr. Yvette Wilcox G. Lamblia Not detected Normal NOT DETECTED [facility] Comment on above: Performed By: #### C BCCATHIE #### [facility] [address] [place] [address] Dr. Yvette ANDINOL CONTROLS PASSED Normal [facility] Comment on above: Performed By: #### C BCMAN #### [facility] [address] [place] [address] Dr. Yvette YOUSIF CHELSY HEADER GI PANEL BACTERIA Normal T [facility] Comment on above: Performed By: #### C BCMAN #### [facility] [address] [place] [address] Dr. Yvette YOUSIFHD ECOLI GI PANEL DIARRHEAGEN IC E.COLI / SHIGELLA Normal [facility] Comment on above: Performed By: #### C BCMAN #### [facility] [address] [address] [address] Yvette MOSES INFO SEE BELOW Normal [facility] Comment on above: Result Comment: EAEC - Enteroaggregative E. Coli EPEC- Enteropathogenic E. Coli ETEC- Enterotoxigenic E. Coli lt/st STEC- Shigella-like toxin-producing E. Coli stx1/stx2 EIEC- Shigella/Enteroinvasive E. Coli Performed By: #### C BCMAN #### [facility] [address] [address] [address] Yvette MOSES PARASITES GI PANEL PARASITES Normal [facility] Comment on above: Performed By: #### C BCMAN #### [facility] [address] [place] [address] Dr. Yvette MOSES VIRUS GI PANEL VIRUSES Normal [facility] Comment on above: Performed By: #### C BCMAN #### [facility] [address] [address] [address] Yvette Wilcox Norovirus GI/GII Not detected Normal NOT DETECTED [facility] Comment on above: Performed By: #### C BCCATHIE #### [facility] [address] [place] [address] Dr. Yvette Wilcox P. Shigelloides Not detected Normal NOT DETECTED [facility] Comment on above: Performed By: #### C BCCATHIE #### [facility] [address] [address] [address] Yvette Wilcox Rotavirus A Not detected Normal NOT DETECTED [facility] Comment on above: Performed By: #### C BCMAN #### [facility] [address] [address] [address] Yvette Wilcox Salmonella Not detected Normal NOT DETECTED [facility] Comment on above: Performed By: #### C BCMAN #### [facility] [address] [place] [address] Dr. Yvette Wilcox Sapovirus Not detected Normal NOT DETECTED [facility] Comment on above: Performed By: #### C BCMAN #### [facility] [address] [place] [address] Dr. Yvette Wilcox STEC Not detected Normal NOT DETECTED [facility] Comment on above: Performed By: #### C BCMAN #### [facility] [address] [place] [address] Dr. Yvette Wilcox Vibrio Not detected Normal NOT DETECTED [facility] Comment on above: Performed By: #### C HARRIETT #### [facility] [address] [place] [address] Dr. Yvette Wilcox Vibrio Cholera Not detected Normal NOT DETECTED The [facility] Comment on above: Performed By: #### C HARRIETT #### [facility] [address] [place] [address] Dr. Yvette Wilcox Y. Enterocolitica Not detected Normal NOT DETECTED [facility] Comment on above: Performed By: #### C HARRIETT #### [facility] [address] [place] [address] Dr. Yvette Wilcox LACTATE/LACTIC ACIDon 2021 Lactate [Moles/Vol] 1.3 mmol/L Normal 0.4-1.9 [facility] Comment on above: Performed By: #### I NSULIN #### [facility] [address] [place] [address] Dr. Yvette Wilcox LIPASEon 07-29-2022 Lipase [Catalytic activity/Vol] 72.0 U/L Critically low 73.0-393.0 [facility] Comment on above: Performed By: #### C VDTBIvette #### [facility] [address] [place] [address] Dr. Yvette Wilcox OCC BLD IMMUNO SCREENon 07-16 OCCULT BLOOD Positive Abnormal NEGATIVE [facility] Comment on above: Performed By: #### C HARRIETT #### [facility] [address] [place] [address] Dr. Yvette Wilcox PROF 14(COMP METB)on 022 Albumin [Mass/Vol] 3.9 g/dL Normal 3.4-5.0 [facility] [place] Comment on above: Performed By: #### C VDTBH #### [facility] [address] [place] [address] Dr. Yvette Wilcox Albumin/Globulin [Mass ratio] 1.0 {ratio} Normal [facility] Comment on above: Performed By: #### C VDTBH #### [facility] [address] [place] [address] Dr. Yvette Wilcox ALP [Catalytic activity/Vol] 54 U/L Normal 46-116 [facility] Comment on above: Performed By: #### C VDTBH #### [facility] [address] [place] [address] Dr. Yvette Wilcox ALT [Catalytic activity/Vol] 41 U/L Normal 14-59 [facility] Comment on above: Performed By: #### C VDTBH #### [facility] [address] [place] [address] Dr. Yvette Wilcox Anion gap [Moles/Vol] 14.1 mmol/L Normal [facility] Comment on above: Performed By: #### C VDTBH #### [facility] [address] [place] [address] Dr. Yvette Wilcox AST [Catalytic activity/Vol] 21 U/L Normal 15-37 [facility] Comment on above: Performed By: #### C VDTBH #### [facility] [address] [place] [address] Dr. Yvette Wilcox Bilirubin [Mass/Vol] 0.5 mg/dL Normal 0.2-1.0 [facility] Comment on above: Performed By: #### C VDTBH #### [facility] [address] [place] [address] Dr. Yvette Wilcox Calcium [Mass/Vol] 9.3 mg/dL Normal 8.5-10.1 [facility] [place] Comment on above: Performed By: #### C VDTBH #### [facility] [address] [place] [address] Dr. Yvette Wilcox Chloride [Moles/Vol] 104 mmol/L Normal 98-107 [facility] Comment on above: Performed By: #### C VDTBH #### [facility] [address] [place] [address] Dr. vYette Wilcox CO2 [Moles/Vol] 23.4 mmol/L Normal 21.0-32.0 [facility] Comment on above: Performed By: #### C VDTBH #### [facility] [address] [place] [address] Dr. Yvette Wilcox Creatinine [Mass/Vol] 0.92 mg/dL Normal 0.55-1.02 [facility] Comment on above: Performed By: #### C VDTBH #### [facility] [address] [place] [address] Dr. Yvette Wilcox EGFR-AF PAPUA [place] GUINEAN >60 Normal >=60 [facility] Comment on above: Performed By: #### C VDTBH #### [facility] [address] [place] [address] Dr. Yvette Wilcox EGFR-NON AF PAPUA [place] GUINEAN >60 Normal >=60 [facility] Comment on above: Performed By: #### C VDTBH #### [facility] [address] [place] [address] Dr. Yvette Wilcox Globulin (S) [Mass/Vol] 3.9 g/dL Normal [facility] Comment on above: Performed By: #### C VDTBH #### [facility] [address] [place] [address] Dr. Yvette Wilcox Glucose [Mass/Vol] 138 mg/dL Critically high 74-106 T [facility] Comment on above: Performed By: #### C VDTBH #### [facility] [address] [place] [address] Dr. Yvette Wilcox Potassium [Moles/Vol] 3.5 mmol/L Normal 3.5-5.1 [facility] Comment on above: Performed By: #### C VDTBH #### [facility] [address] [place] [address] Dr. Yvette Wilcox Protein [Mass/Vol] 7.8 g/dL Normal 6.4-8.2 [facility] Comment on above: Performed By: #### C VDTBH #### [facility] [address] [place] [address] Dr. Yvette Wilcox Sodium [Moles/Vol] 138 mmol/L Normal 136-145 [facility] [place] Comment on above: Performed By: #### C VDTBH #### [facility] [address] [place] [address] Dr. Yvette Wilcox Urea nitrogen [Mass/Vol] 11.0 mg/dL Normal 7.0-18.0 [facility] Comment on above: Performed By: #### C VDTBH #### [facility] [address] [place] [address] Dr. Yvette Wilcox Urea nitrogen/Creatinine [Mass ratio] 12.0 mg/mg Normal [facility] Comment on above: Performed By: #### C VDTBH #### [facility] [address] [place] [address] Dr. Yvette Wilcox URINE MICROSCOPIC ONLYon BACTERIA NONE SEEN Normal NONE SEEN [facility] Comment on above: Performed By: #### U MICRO, ERUR #### [facility] [address] [place] [address] Dr. Yvette Wilcox Bacteria identified Cx Nom (U) NOT INDICATED Normal [facility] Comment on above: Performed By: #### U MICRO, ERUR #### [facility] [address] [place] [address] Dr. Yvette Wilcox CAST SEEN Abnormal NONE SEEN [facility] Comment on above: Performed By: #### U MICRO, ERUR #### [facility] [address] [place] [address] Dr. Yvette Wilcox COARSE GRANULAR CAST RARE Normal [facility] Comment on above: Performed By: #### U MICRO, ERUR #### [facility] [address] [place] [address] Dr. Yvette Wilcox Crystals LM Nom (Urine sed) NONE SEEN Normal NONE SEEN [facility] Comment on above: Performed By: #### U MICRO, ERUR #### [facility] [address] [place] [address] Dr. Yvette Wilcox Epithelial cells LM Ql (Urine sed) RARE Normal NONE SEEN /RARE [facility] Comment on above: Performed By: #### U MICRO, ERUR #### [facility] [address] [address] [address] Yvette Wilcox MUCOUS NONE SEEN Normal NONE SEEN [facility] Comment on above: Performed By: #### U MICRO, ERUR #### [facility] [address] [place] [address] Dr. Yvette Wilcox RBC 0-2 Normal 0-2 [facility] Comment on above: Performed By: #### U MICRO, ERUR #### [facility] [address] [address] [address] Yvette Wilcox WBC NONE SEEN Normal NONE SEEN [facility] Comment on above: Performed By: #### U MICRO, ERUR #### [facility] [address] [place] [address] Dr. Yvette Wilcox INSULINon 07-14-2022 Insulin 13.2 uIU/mL Normal 2.6-24.9 [facility] Comment on above: Performed By: #### I NSULIN #### [facility] [address] [place] [address] Dr. Yvette Wilcox T4, T3U, FTI LABCORPon 07-14 Free Thyroxine Index 2.1 Normal 1.2-4.9 [facility] Comment on above: Performed By: #### T HYLC #### [facility] [address] [place] [address] Dr. Yvette Wilcox T3 Uptake 22 % Critically low 24-39 [facility] Comment on above: Performed By: #### T HYLC #### [facility] [address] [place] [address] Dr. Yvette Wilcox T4 [Mass/Vol] 9.5 ug/dL Normal 4.5-12.0 The [facility] Comment on above: Performed By: #### T HYLC #### [facility] [address] [place] [address] Dr. Yvette Wilcox CBC AUTO DIFFon 07-13-2022 BASO # 0.0 103/ul Normal 0.0-0.1 [facility] Comment on above: Performed By: #### I NSULIN #### [facility] [address] [address] [address] Yvette Wilcox Basophils/100 WBC (Bld) 0.6 % Normal 0.2-2.0 [facility] Comment on above: Performed By: #### I NSULIN #### [facility] [address] [place] [address] Dr. Yvette Wilcox EO # 0.1 103/ul Normal 0.0-0.7 [facility] Comment on above: Performed By: #### I NSULIN #### [facility] [address] [place] [address] Dr. Yvette Wilcox Eosinophils/100 WBC (Bld) 1.9 % Normal 0.9-7.0 [facility] Comment on above: Performed By: #### I NSULIN #### [facility] [address] [place] [address] Dr. Yvette Wilcox Erythrocyte distribution width (RBC) [Ratio] 13.0 % Normal 11.0-15.0 [facility] Comment on above: Performed By: #### I NSULIN #### [facility] [address] [place] [address] Dr. Yvette Wilcox Hematocrit (Bld) [Volume fraction] 38.7 % Normal 36.0-48.0 [facility] Comment on above: Performed By: #### I NSULIN #### [facility] [address] [place] [address] Dr. Yvette Wilcox Hemoglobin (Bld) [Mass/Vol] 12.8 g/dL Normal 12.0-16.0 [facility] Comment on above: Performed By: #### I NSULIN #### [facility] [address] [place] [address] Dr. Yvette Wilcox IG # 0.02 10e3/ul Normal 0.00-0.03 [facility] Comment on above: Performed By: #### I NSULIN #### [facility] [address] [place] [address] Dr. Yvette Wilcox IG % 0.3 % Normal 0.0-0.5 The [facility] Comment on above: Performed By: #### I NSULIN #### [facility] [address] [address] [address] Yvette Wilcox LYMPH # 2.0 103/ul Normal 1.2-3.8 The [facility] Comment on above: Performed By: #### I NSULIN #### [facility] [address] [address] [address] Yvette Wilcox Lymphocytes/100 WBC (Bld) 32.8 % Normal 20.5-60.0 [facility] Comment on above: Performed By: #### I NSULIN #### [facility] [address] [address] [address] Yvette Wilcox MANUAL DIFF REQ NO Normal [facility] Comment on above: Performed By: #### I NSULIN #### [facility] [address] [place] [address] Dr. Yvette Wilcox MCH (RBC) [Entitic mass] 29.0 pg Normal 26.7-34.0 [facility] Comment on above: Performed By: #### I NSULIN #### [facility] [address] [place] [address] Dr. Yvette Wilcox MCHC (RBC) [Mass/Vol] 33.1 g/dL Normal 29.9-35.2 [facility] Comment on above: Performed By: #### I NSULIN #### [facility] [address] [place] [address] Dr. Yvette Wilcox MCV (RBC) [Entitic vol] 87.8 fL Normal 81.0-99.0 [facility] Comment on above: Performed By: #### I NSULIN #### [facility] [address] [place] [address] Dr. Yvette Wilcox MONO # 0.6 103/ul Normal 0.3-0.8 [facility] Comment on above: Performed By: #### I NSULIN #### [facility] [address] [place] [address] Dr. Yvette Wilcox Monocytes/100 WBC (Bld) 8.8 % Normal 1.7-12.0 [facility] Comment on above: Performed By: #### I NSULIN #### [facility] [address] [address] [address] Yvette Wilcox NEUT # 3.5 103/ul Normal 1.4-6.5 [facility] Comment on above: Performed By: #### I VÍCTORULIN #### [facility] [address] [place] [address] Dr. Yvette Wilcox Neutrophils/100 WBC (Bld) 55.6 % Normal 43.0-75.0 [facility] Comment on above: Performed By: #### I DALI #### [facility] [address] [place] [address] Dr. Yvette Wilcox Platelet mean volume (Bld) [Entitic vol] 10.1 fL Normal 9.5-13.5 [facility] Comment on above: Performed By: #### I DALI #### [facility] [address] [place] [address] Dr. Yvette Wilcox PLT 360 103/ul Normal 150-450 [facility] Comment on above: Performed By: #### I DALI #### [facility] [address] [place] [address] Dr. Yvette Wilcox RBC 4.41 106/ul Normal 4.20-5.40 [facility] Comment on above: Performed By: #### I DALI #### [facility] [address] [place] [address] Dr. Yvette Wilcox WBC 6.2 103/ul Normal 4.0-11.0 [facility] Comment on above: Performed By: #### I DALI #### [facility] [address] [place] [address] Dr. Yvette Wilcox GLYCOHEMOGLOBIN A1Con 2021 ADA RECOMMENDATION SEE BELOW Normal The [facility] Comment on above: Result Comment: ADA RECOMMENDED LIMIT 4.0 - 6.0 ADA THERAPEUTIC TARGET < 7.0 ACTION SUGGESTED > 7.0 Performed By: #### C HARRIETT #### [facility] [address] [place] [address] Dr. Yvette Wilcox Glucose [Mass/Vol] 126 mg/dL Normal The [facility] Comment on above: Performed By: #### C HARRIETT #### [facility] [address] [address] [address] Yvette Wilcox HbA1c (Bld) [Mass fraction] 6.0 % Normal 4.5-6.2 [facility] Comment on above: Performed By: #### C HARRIETT #### [facility] [address] [address] [address] Yvette Wilcox IRONon 07-13-2022 Iron [Mass/Vol] 96.0 ug/dL Normal 50.0-170.0 [facility] Comment on above: Performed By: #### I ANGEL #### [facility] [address] [place] [address] Dr. Yvette Wilcox LIPID PROFILEon 07-13-2022 CHOL-HDL RATIO NORM SEE BELOW Normal [facility] Comment on above: Result Comment: 3.3 - 4.4 LOW RISK 4.4 - 7.1 AVERAGE RISK 7.1 - 11.0 MODERATE RISK >11.0 HIGH RISK Performed By: #### I NSULIN #### [facility] [address] [place] [address] Dr. Yvette Wilcox Cholesterol [Mass/Vol] 194 mg/dL Normal <=200 [facility] Comment on above: Performed By: #### I NSULIN #### [facility] [address] [place] [address] Dr. Yvette Wilcox Cholesterol in HDL [Mass/Vol] 47 mg/dL Normal 40-60 [facility] Comment on above: Performed By: #### I NSULIN #### [facility] [address] [address] [address] Yvette Wilcox Cholesterol in LDL [Mass/Vol] 114.8 mg/dL Normal [facility] Comment on above: Performed By: #### I NSULIN #### [facility] [address] [place] [address] Dr. Yvette Wilcox Cholesterol.total/Ch olesterol in HDL [Mass ratio] 4.1 {ratio} Normal [facility] Comment on above: Performed By: #### I NSULIN #### [facility] [address] [place] [address] Dr. Yvette Wilcox HDL NORMAL > or = 60 mg/dl - LO W CARDIOVASCULAR RISK <40 mg/dl - HIGH CARDIOVASCULAR RISK Normal [facility] Comment on above: Performed By: #### I NSULIN #### [facility] [address] [address] [address] Yvette Wilcox LDL CALC NORMAL SEE BELOW Normal The [facility] Comment on above: Result Comment: <100 mg/dl OPTIMAL 100 - 129 mg/dl NEAR OR ABOVE OPTIMAL 130 - 159 mg/dl BORDERLINE HIGH 160 - 189 mg/dl HIGH >190 mg/dl VERY HIGH Performed By: #### I NSULIN #### [facility] [address] [address] [address] Yvette Wilcox Triglyceride [Mass/Vol] 161 mg/dL Critically high <=150 [facility] Comment on above: Performed By: #### I NSULIN #### [facility] [address] [address] [address] Yvette Wilcox VLDL CALC 32.2 mg/dL Normal [facility] Comment on above: Performed By: #### I NSULIN #### [facility] [address] [address] [address] Yvette Wilcox PROF 14(COMP METB)on 022 Albumin [Mass/Vol] 3.4 g/dL Normal 3.4-5.0 [facility] Comment on above: Performed By: #### I NSULIN #### [facility] [address] [address] [address] Yvette Wilcox Albumin/Globulin [Mass ratio] 1.0 {ratio} Normal [facility] Comment on above: Performed By: #### I NSULIN #### [facility] [address] [address] [address] Yvette Wilcox ALP [Catalytic activity/Vol] 48 U/L Normal 46-116 [facility] Comment on above: Performed By: #### I NSULIN #### [facility] [address] [address] [address] Yvette Wilcox ALT [Catalytic activity/Vol] 26 U/L Normal 14-59 [facility] Comment on above: Performed By: #### I NSULIN #### [facility] [address] [address] [address] Yvette Wilcox Anion gap [Moles/Vol] 15.0 mmol/L Normal [facility] Comment on above: Performed By: #### I NSULIN #### [facility] [address] [address] [address] Yvette Wilcox AST [Catalytic activity/Vol] 16 U/L Normal 15-37 [facility] Comment on above: Performed By: #### I NSULIN #### [facility] [address] [address] [address] Yvette Wilcox Bilirubin [Mass/Vol] 0.3 mg/dL Normal 0.2-1.0 [facility] Comment on above: Performed By: #### I NSULIN #### [facility] [address] [address] [address] Yvette Wilcox Calcium [Mass/Vol] 8.6 mg/dL Normal 8.5-10.1 [facility] Comment on above: Performed By: #### I NSULIN #### [facility] [address] [address] [address] Yvette Wilcox Chloride [Moles/Vol] 107 mmol/L Normal 98-107 [facility] Comment on above: Performed By: #### I NSULIN #### [facility] [address] [address] [address] Yvette Wilcox CO2 [Moles/Vol] 23.7 mmol/L Normal 21.0-32.0 [facility] Comment on above: Performed By: #### I NSULIN #### [facility] [address] [address] [address] Yvette Wilcox Creatinine [Mass/Vol] 0.94 mg/dL Normal 0.55-1.02 [facility] Comment on above: Performed By: #### I NSULIN #### [facility] [address] [address] [address] Yvette Wilcox EGFR-AF PAPUA [place] >60 Normal >=60 The [facility] Comment on above: Performed By: #### I NSULIN #### [facility] [address] [address] [address] Yvette Wilcox EGFR-NON AF PAP[place] >60 Normal >=60 [facility] Comment on above: Performed By: #### I NSULIN #### [facility] [address] [address] [address] Yvette Wilcox Globulin (S) [Mass/Vol] 3.5 g/dL Normal [facility] Comment on above: Performed By: #### I NSULIN #### [facility] [address] [address] [address] Yvette Wilcox Glucose [Mass/Vol] 105 mg/dL Normal 74-106 [facility] Comment on above: Performed By: #### I NSULIN #### [facility] [address] [place] [address] Dr. Yvette Wilcox Potassium [Moles/Vol] 3.7 mmol/L Normal 3.5-5.1 [facility] Comment on above: Performed By: #### I NSULIN #### [facility] [address] [place] [address] Dr. Yvette Wilcox Protein [Mass/Vol] 6.9 g/dL Normal 6.4-8.2 [facility] Comment on above: Performed By: #### I NSULIN #### [facility] [address] [place] [address] Dr. Yvette Wilcox Sodium [Moles/Vol] 142 mmol/L Normal 136-145 The [facility] Comment on above: Performed By: #### I NSULIN #### [facility] [address] [place] [address] Dr. Yvette Wilcox Urea nitrogen [Mass/Vol] 15.0 mg/dL Normal 7.0-18.0 [facility] Comment on above: Performed By: #### I NSULIN #### [facility] [address] [place] [address] Dr. Yvette Wilcox Urea nitrogen/Creatinine [Mass ratio] 16.0 mg/mg Normal [facility] Comment on above: Performed By: #### I NSULIN #### [facility] [address] [address] [address] Yvette Wilcox TSHon 07-13-2022 TSH 2.312 uIU/mL Normal 0.358-3.740 The [facility] Comment on above: Performed By: #### C [facility] #### [facility] [address] [address] [address] Yvette Wilcox Vital Signs Date Time Vital Sign Value Performing Clinician Faci lity 12-06-2024 08:13-0500 Body height 168.9 cm [facility] 12-06-2024 08:13-0500 Body mass index (BMI) [Ratio] 32.27 kg/m2 [facility] 12-06-2024 08:13-0500 Body weight 92.08 kg [facility] 12-06-2024 08:13-0500 Diastolic blood pressure 80 mm[Hg] [facility] 12-06-2024 08:13-0500 Systolic blood pressure 112 mm[Hg] [facility] 12-01-2023 10:49-0500 Body height 166.4 cm [facility] 12-01-2023 10:49-0500 Body mass index (BMI) [Ratio] 33.27 kg/m2 [facility] 12-01-2023 10:49-0500 Body weight 92.08 kg [facility] 12-01-2023 10:49-0500 Diastolic blood pressure 82 mm[Hg] [facility] 12-01-2023 10:49-0500 Systolic blood pressure 118 mm[Hg] [facility] 11-25-2022 14:17-0500 Blood Pressure Location [place] [facility] 11-25-2022 14:17-0500 Diastolic blood pressure 76 mm[Hg] [place] [facility] 11-25-2022 14:17-0500 Heart rate 72 /min [place] [facility] 11-25-2022 14:17-0500 Respiratory rate 16 /min [place] [facility] 11-25-2022 14:17-0500 Systolic blood pressure 118 mm[Hg] [place] [facility] 08-21-2022 15:00-0400 Blood Pressure Location [place] [facility] 08-21-2022 15:00-0400 Diastolic blood pressure 80 mm[Hg] [place] [facility] 08-21-2022 15:00-0400 Heart rate 76 /min [place] [facility] 08-21-2022 15:00-0400 Respiratory rate 16 /min [place] [facility] 08-21-2022 15:00-0400 Systolic blood pressure 126 mm[Hg] [place] [facility] Encounters Encounter Date Encounter Type Care Provider Facility Start: 07-10-2025 End: 07-10-2025 ambulatory FRANCES STILL [facility] Start: 06-08-2025 End: 06-08-2025 Telephone encounter Frances Mak Darryl DTP OPERATOR-SCREEN PRINTING MACHINE LOADER [employer] Work Phone: [facility] Start: 01-09-2025 End: 01-09-2025 Orders Only Frances Obdulio Darryl DTP OPERATOR-SCREEN PRINTING MACHINE LOADER [employer]LOAD[employer] Work Phone: [facility] [place] Comment on above: Abnormality of left breast on screening mammogram (Primary Dx); Family history of breast cancer; Hx of breast cancer; Scattered fibroglandular tissue density of both breasts on mammography Start: 01-04-2025 End: 01-04-2025 Orders Only Frances Obdulio Darryl DTP OPERATOR-SCREEN PRINTING MACHINE LOADER [employer]LOADER Work Phone: [facility] [place] Comment on above: Abnormality of left breast on screening mammogram (Primary Dx); Hx of breast cancer; Scattered fibroglandular tissue density of both breasts on mammography Start: 12-06-2024 End: 12-06-2024 Patient encounter procedure [facility] Start: 12-06-2024 End: 12-06-2024 Periodic preventive med est patient 40-64yrs [facility] [place] Comment on above: Well woman exam with routine gynecological exam (Primary Dx); Encounter for screening mammogram for breast cancer; Endometrial thickening on ultrasound; Standardized adult depression screening tool completed Start: 12-06-2024 End: 12-06-2024 ambulatory [facility] Start: 12-06-2024 Encounter for gynecological examination (general) (routine) without abnormal findings [facility] Start: 12-01-2023 End: 12-01-2023 Patient encounter procedure [facility] Work Phone: Start: 12-01-2023 End: 12-01-2023 Periodic preventive med est patient 40-64yrs [facility] [place] Comment on above: Well woman exam with routine gynecological exam (Primary Dx); Endometrial thickening on ultrasound; Standardized adult depression screening tool completed Start: 12-23-2022 End: 12-24-2022 ambulatory NOEMI TERRIE Facility:[facility] Start: 12-19-[address] [place] Facilit y:[facility] Start: 11-25-2022 End: 11-26-2022 ambulatory [place] Facility: [facility] Start: 11-25-2022 End: 11-25-2022 Patient encounter procedure [place] [facility] Start: 11-12-2022 End: 11-13-2022 ambulatory NOEMI FALCON Facility:[facility] Start: 08-21-2022 End: 08-22-2022 ambulatory [place] Facility:[facility] Start: 08-21-2022 End: 08-21-2022 Patient encounter procedure [place] [facility] [facility] Start: 08-20-2022 End: 08-21-2022 ambulatory NOEMI FALCON Facility:[facility] Start: 08-05-2022 ambulatory [place] Facility :[facility] Start: 08-04-2022 End: 08-04-2022 ambulatory NOEMI FALCON Facility:[facility] Start: 07-30-2022 End: 08-01-2022 Evaluation and management of inpatient NOEMI FALCON Facility:[facility] Start: 07-14-2022 Encounter for genera l adult medical examination without abnormal findings NOEMI FALCON [facility] Start: 07-13-2022 End: 07-14-2022 ambulatory NOEMI FALCON Facility:[facility] Start: 07-13-2022 End: 07-14-2022 Encounter for general adult medical examination without abnormal findings NOEMI FALCON Facility:[facility] Procedures Date Procedure Procedure Detail Performing Clinician Start: 01-09-2025 Mammography Frances Michele er DTP OPERATOR-SCREEN PRINTING MACHINE LOADER [employer] Work Phone: Start: 01-04-2025 Mammography Frances Ryne er DTP OPERATOR-SCREEN PRINTING MACHINE LOADER [employer]LOAD[employer] Work Phone: Start: 12-06-2024 Adult depression scr eening assessment [facility] Start: 12-31-2023 Mammography [facility] Start: 12-01-2023 Adult depression scr eening assessment [facility] Start: 11-24-2022 Microscopic observat ion [Identifier] in Cervix by Cyto stain [facility] section [place] CAMAR[place]O Ck Lumpectomy of right breast Obdulio do JANETT Plan of Treatment Date Care Activity Detail Author Start: 01-09-2026 Screening for malign ant neoplasm of breast Mammogram [facility] Start: 01-04-2026 Screening for malign ant neoplasm of breast Mammogram [facility] Start: 12-06-2025 Adult BMI Follow Up Plan Adult BMI F ollow Up Plan [facility] Start: 12-06-2025 Adult BMI Screening Adult BMI Screen ing [facility] Start: 12-06-2025 Depression Screening Depression Scre ening [facility] Start: 12-06-2025 Tobacco Screening Tobacco Screening [facility] Start: 11-24-2025 Screening for malign ant neoplasm of cervix Pap Smear [facility] [employer] [facility] Start: 07-16-2025 Influenza vaccination Influenza Vacc ine [facility] Start: 07-10-2025 End: 07-10-2025 Patient encounter procedure [facility] - Mammography/[facility] Start: 06-08-2025 End: 06-08-2026 US Breast - left limited Ultrasound breast limited left Imaging Routine Abnormality of left breast on screening mammogram Expected: 06/08/2025, Expires: 06/08/2026 FRUCT Work Phone: Comment on above: Expected: 06/08/2025 , Expires: 06/08/2026 Start: 01-09-2025 End: 01-09-2026 MG Breast duct - left Views W contrast intra duct Mammography diagnostic unilateral left with CAD Imaging Routine Abnormality of left breast on screening mammogram Family history of breast cancer Hx of breast cancer Scattered Fibroglandular Tissue Density Of Both Breasts On Mammography Expected: 01/09/2025, Expires: 01/09/2026 [employer] Phone: Comment on above: Expected: 01/09/2025 , Expires: 01/09/2026 Start: 01-09-2025 End: 01-09-2025 Patient encounter procedure [facility] - Mammography/[facility]A Imaging Start: 01-04-2025 End: 01-04-2026 MG Breast duct - left Views W contrast intra duct Mammography diagnostic unilateral left with CAD Imaging Routine Abnormality of left breast on screening mammogram Hx of breast cancer Scattered Fibroglandular Tissue Density Of Both Breasts On Mammography Expected: 01/04/2025, Expires: 01/04/2026 FRUCT Work Phone: Comment on above: Expected: 01/04/2025 , Expires: 01/04/2026 Start: 01-04-2025 End: 01-04-2026 US Breast - left limited Ultrasound breast limited left Imaging Routine Abnormality of left breast on screening mammogram Hx of breast cancer Scattered Fibroglandular Tissue Density Of Both Breasts On Mammography Expected: 01/04/2025, Expires: 01/04/2026 [facility] Comment on above: Expected: 01/04/2025 , Expires: 01/04/2026 Start: 12-31-2024 Screening for malign ant neoplasm of breast Mammogram [facility] Start: 12-06-2024 End: 12-06-2025 DBT Breast - bilateral screening Mammography screening bilateral with CAD Imaging Routine Encounter for screening mammogram for breast cancer Expected: 12/06/2024, Expires: 12/06/2025 [facility]: Comment on above: Expected: 12/06/2024 , Expires: 12/06/2025 Start: 12-06-2024 End: 12-06-2025 US Pelvis transvaginal Ultrasound transvaginal non OB Imaging Routine Endometrial thickening on ultrasound Expected: 12/06/2024, Expires: 12/06/2025 [facility] Comment on above: Expected: 12/06/2024 , Expires: 12/06/2025 Start: 12-01-2024 Adult BMI Follow Up Plan Adult BMI F ollow Up Plan [facility] Start: 12-01-2024 Adult BMI Screening Adult BMI Screen ing [facility] Start: 12-01-2024 Depression Screening Depression Scre ening [facility] Start: 02-03-2024 Tobacco Screening Tobacco Screening [facility] Start: 12-31-2023 End: 12-31-2023 Patient encounter procedure 12/31/2023 8:00 AM EST Appointment [facility] - Mammogram DEXA [address] [place] [address] Brenden Kraus MD [address] [facility] [address] [place] [id number] [facility] - Mammogram DEXA Start: 12-01-2023 End: 12-01-2024 US Pelvis transabdominal and transvaginal Ultrasound pelvic with transvaginal Imaging Routine Endometrial thickening on ultrasound Expected: 12/01/2023, Expires: 12/01/2024 [facility] Work Phone: Comment on above: Expected: 12/01/2023 , Expires: 12/01/2024 Start: 11-24-2023 Adult BMI Follow Up Plan Adult BMI F ollow Up Plan [facility] Start: 2013 Administration of varicella zoster vaccine Zoster (Shingles) Vaccine (1 of 2) [facility] Start: 1982 DTaP,Tdap and Td Vaccines (1 - Tdap) DTaP,Tdap and Td Vaccines (1 - Tdap) [facility] Immunizations Immunization Date Immunization Notes Care Provider [facility] 10-04-2024 influenza virus vaccine, unspecified formulation 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 Work Phone: [facility] 09-02-2022 influenza virus vaccine, unspecified formulation lAb[place] [facility] [facility] 09-26-2021 SARS-CoV-2 (COVID-19 ) mRNA BNT-162b2 vax [place] [facility] Comment on above: Result Comment: 2022: [id number] 02-25-2021 SARS-CoV-2 (COVID-19 ) mRNA BNT-162b2 vax [place] [facility] 02-03-2021 SARS-CoV-2 (COVID-19 ) mRNA BNT-162b2 vax [place] [facility] Payers Date Payer Category Payer [employer] [place] [facility] Other [facility] [id number] 2024 Unknown [id number] 2021 Unknown ANTHEM BCBS OUT OF STATE PPO/TRUST [id number] 2021-Present [phone] [id number] [place] [address] [id number]. [id number] 1963 Unknown [id number] 2.16.840.1.085728.3.579. 2.593 1963 Unknown [id number] 2.16.840.1.760392.3.579. 2.593 1963 Unknown [id number] 2.16.840.1.633301.3.579. 2.593 1963 Unknown [id number] 2.16.840.1.582203.3.579. 2.593 1963 Unknown [id number] 2.16.840.1.230806.3.579. 2.593 1963 Unknown [id number] 2.16.840.1.534681.3.579. 2.593 1963 Unknown [id number] 2.16.840.1.441300.3.579. 2.593 1963 Unknown [id number] 2.16.840.1.598203.3.579. 2.727 1963 Unknown [id number] 2.16.840.1.944389.3.579. 2.727 1963 Unknown [id number] 2.16.840.1.698945.3.579. 2.727 1963 Unknown [id number] 2.16.840.1.097495.3.579. 2.727 1963 Unknown [id number] 2.16.840.1.293931.3.579. 2.1286 1963 Unknown [id number] 2.16.840.1.119437.3.579. 2.1286 1963 Unknown [id number] 2.16.840.1.210613.3.579. 2.1286 1963 Unknown [id number] 2.16.840.1.106137.3.579. 2.1286 1963 Unknown [id number] 2.16.840.1.351379.3.579. 2.1286 1963 Unknown [id number] 2.16.840.1.394438.3.579. 2.1286 1959 Unknown [id number] Social History Date Type Detail Facility Start: 08-21-2022 End: 11-24-2022 Tobacco smoking status Never smoked tobacco (finding) [facility] Tobacco smoking status Never [facility] Start: 12-28-2022 End: 12-06-2024 Sex Assigned At Female [facility] Start: 11-24-2022 Tobacco use and exposure Smokeless tobacco non-user [facility] Start: 12-06-2024 End: 01-04-2025 Alcoholic beverage intake Current non-drinker of alcohol (finding) [facility] Start: 12-28-2022 End: 12-06-2024 History of Social function [facility] Do you belong to any clubs or organizations such as restorationist groups, unions, fraternal or athletic groups, or school groups? No [facility] Are you now , , , , never or living with a partner? [facility] How often to you hav e a drink containing alcohol? Never [facility] Do you feel stress - tense, restless, nervous, or anxious, or unable to sleep at night because your mind is troubled all the time - these days [OSQ] Not at all [facility] Start: 12-23-2019 Education 17 [facility] Start: 1965 Sex assigned at Female [facility] Start: 06-20-2015 Sex Female (finding) [facility] Start: 10-24-2021 Gender identity Identifies as female gender (finding) [facility] Start: 10-24-2021 Sexual orientation Heterosexual (finding) [facility] Functional Status Date Assessment Result Facility 11-25-2022 Functional Status N/A [facility] 08-21-2022 Functional Status N/A [facility] Clinical Notes 08-21-2022 to 06-08-2025 Telephone Encounter - Amada Meade - 06/08/2025 9:41 AM EDTTelephone Encounter - Julissa Amezquita RN - 06/08/2025 9:41 AM EDTTelephone Encounter - Amada Meade - 06/08/2025 9:41 AM EDT Note Date & Type Note Facility 06-08-2025 Miscellaneous Notes Frances at [facility] called stating Pt is due for 6 month follow-up to Mammogram. Frances is requesting an ultrasound breast left be added to Pt's orders. Ultrasound for left breast ordered. - Julissa Amezquita RN 06/08/25 1:07 PM documented in this encounter [facility] 06-08-2025 Telephone encounter Note Frances at [facility] called stating Pt is due for 6 month follow-up to Mammogram. Frances is requesting an ultrasound breast left be added to Pt's orders. [facility] 06-08-2025 Telephone encounter Note Ultrasound for left breast ordered. - Julissa Amezquita RN 06/08/25 1:07 PM [facility] 12-06-2024 History of Presen t illness Narrative Bria Chávez is a pleasant 59 y.o. 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 She is postmenopausal. Hysterectomy: no She is not sexually active. Denies painful intercourse. denies pelvic pain. 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 Vaginal Bleeding none Hot flashes / menopausal symptoms - Mild Bladder issues - None Bowel issues - None History of abnormal Pap smear: no Last pap: 11-24-2022 Family history of uterine or ovarian cancer: yes - mother Family hx pancreatic or prostate cancer: yes - brother-pancreatic Family history of colon cancer: no Family history of breast cancer: yes - mother, m aunt Regular self breast exam: yes Last mammogram: -neg Dexa Scan: na Colonoscopy: 2022 PHQ9 depression screenin Flu shot this flu season: OB History 3 Para 3 Term 3 AB Living 3 SAB IAB Ectopic Multiple Live Births 3 Past Medical History: Diagnosis Date Arthritis BRCA1 negative BRCA2 negative Breast cancer ([facility]) 11-07-2018 Lumpectomy-cancer cleared Deep vein thrombosis ([facility]) 08/2022 treated with Eliquis for 30 days, not currently taking Visual impairment glasses Past Surgical History: Procedure Laterality Date BREAST BIOPSY Right 11/07/2018 BREAST LUMPECTOMY Right 11/2018 BREAST SURGERY Right 11/07/2018 biopsy SECTION X 3 COLONOSCOPY 12/23/2022 ENDOMETRIAL ABLATION endometrial ablation HYSTEROSCOPY DILATION CURETTAGE N/A 01/19/2023 Performed by Nasima Donis MD at [facility] MASTECTOMY PARTIAL BREAST NL FS Right 11/24/2018 Performed by [place]ia Marcus DO at [facility] Family History Problem Relation Age of Onset Uterine cancer Maternal Grandmother 62 Ovarian cancer Maternal Grandmother Stomach cancer Maternal Grandfather 40 Breast cancer Mother 56 Lung cancer Mother 78 Hyperlipidemia Mother Hypertension Mother Skin cancer Mother 70 Diabetes Mother Pancreatic cancer Brother Cancer Maternal Uncle 70 spine, mets to lungs Breast cancer Other MGM's sister, dx 50s Breast cancer Other MGM's sister, dx 50s Current Outpatient Medications Medication Sig Dispense Refill aspirin 81 mg chewable tablet Chew 1 tablet (81 mg total) and swallow in the morning. calcium carbonate-vitamin D3 (OSCAL 500 + D) 500 mg(1,250mg) -200 units per tablet Take 1 tablet by mouth in the morning and 1 tablet in the evening. Take with meals. colesevelam (WELCHOL) 625 mg tablet Take 4 tablets (2,500 mg total) by mouth in the morning. 11 evening primrose oil 500 mg capsule Take by mouth daily. glucosamine-chondroitin 500-400 mg tablet Take 1 tablet by mouth 3 (three) times a day. multivitamin capsule Take 1 capsule by mouth in the morning. omega-3 fatty acids-fish oil 300-1,000 mg capsule Take 2 capsules (2 g total) by mouth in the morning. No current facility-administered medications for this visit. ALLERGIES No Known Allergies Review of Systems Constitutional: Negative. Respiratory: Negative. Negative for chest tightness and shortness of breath. Cardiovascular: Negative. Negative for chest pain and palpitations. Gastrointestinal: Negative. Negative for constipation, diarrhea, nausea and vomiting. Endocrine: Negative. Genitourinary: Negative. Negative for pelvic pain and vaginal bleeding. Musculoskeletal: Negative. Skin: Negative. Allergic/Immunologic: Negative. Neurological: Negative. Hematological: Negative. Psychiatric/Behavioral: Negative. Physical Exam BP 112/80 Ht 168.9 cm (5' 6.5 ) Wt 92.1 kg (203 lb) LMP (LMP Unknown) BMI 32.27 kg/m Physical Exam Vitals and nursing note reviewed. Constitutional: Appearance: Normal appearance. HENT: Head: Normocephalic and atraumatic. Cardiovascular: Rate and Rhythm: Normal rate and regular rhythm. Pulses: Normal pulses. Heart sounds: Normal heart sounds. Pulmonary: Effort: Pulmonary effort is normal. Breath sounds: Normal breath sounds. Chest: Breasts: Breasts are symmetrical. Right: Normal. No mass, skin change or tenderness. Left: Normal. No mass, skin change or tenderness. Abdominal: General: Bowel sounds are normal. Palpations: Abdomen is soft. Genitourinary: General: Normal vulva. Labia: Right: No rash or lesion. Left: No rash or lesion. Vagina: Normal. Cervix: Normal. Uterus: Normal. Not enlarged and not tender. Adnexa: Right adnexa normal and left adnexa normal. Right: No mass, tenderness or fullness. Left: No mass, tenderness or fullness. Musculoskeletal: General: Normal range of motion. Cervical back: Normal range of motion and neck supple. Skin: General: Skin is warm and dry. Neurological: Mental Status: She is alert and oriented to person, place, and time. Psychiatric: Mood and Affect: Mood normal. Speech: Speech normal. Behavior: Behavior normal. Thought Content: Thought content normal. Judgment: Judgment normal. Assessment / Plan Bria was seen today for gynecologic exam. Diagnoses and all orders for this visit: Well woman exam with routine gynecological exam Encounter for screening mammogram for breast cancer - Mammography screening bilateral with CAD; Future Endometrial thickening on ultrasound - Ultrasound transvaginal non OB; Future Standardized adult depression screening tool completed Next pap due 2027. Discussed ASCCP screening guidelines. BMI is above average; Discussed eating tips for weight loss and and exercise steps. Just started semaglutide. Discussed SBE. Discussed taking a multivitamin. Discussed Calcium and Vitamin D for prevention of osteoporosis. Discussed need for yearly mammogram after 40 yo. Order placed. Pelvic u/s ordered to evaluate hx thickened endometrium. Patient to discuss colon cancer screening recommendations with PCP. Educational material provided. All questions answered. 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 TOÑITO Tobias APRN-CNP 12/06/24 0850 documented in this encounter [facility] 12-01-2023 History of Presen t illness Narrative Bria Chávez is a 58 y.o. 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 She is postmenopausal. Hysterectomy: no. Patient with hx thickened endometrium while on tamoxifen. Last u/s a year ago. Patient stopped taking tamoxifen in June 2023. Patient recently joined [employer] and has lost three pounds this week. She not sexually active. Denies pelvic pain. 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 Vaginal Bleeding none Hot flashes / menopausal symptoms - None Bladder issues - None Bowel issues - None History of abnormal Pap smear: no Last pap: 7-97-abvselxt Family history of uterine or ovarian cancer: yes - m grandma Family hx pancreatic or prostate cancer: no Family history of colon cancer: no Family history of breast cancer: yes - mother, mgm sisters Regular self breast exam: yes Last mammogram: 12-30-22 Dexa Scan: na Colonoscopy / Cologuard: 2- PHQ9 depression screenin OB History 3 Para 3 Term 3 AB Living 3 SAB IAB Ectopic Multiple Live Births 3 Past Medical History: Diagnosis Date Arthritis BRCA1 negative BRCA2 negative Breast cancer ([facility]) 11-07-2018 Lumpectomy-cancer cleared Deep vein thrombosis ([facility] 08/2022 treated with Eliquis for 30 days, not currently taking Visual impairment glasses Past Surgical History: Procedure Laterality Date BREAST BIOPSY Right 11/07/2018 BREAST LUMPECTOMY Right 11/2018 BREAST SURGERY Right 11/07/2018 biopsy SECTION X 3 COLONOSCOPY 12/23/2022 ENDOMETRIAL ABLATION endometrial ablation HYSTEROSCOPY DILATION CURETTAGE N/A 01/19/2023 Performed by Nasima Donis MD at [facility] MASTECTOMY PARTIAL BREAST NL FS Right 11/24/2018 Performed by [place]ia Marcus DO at [facility] Family History Problem Relation Age of Onset Breast cancer Mother 56 Lung cancer Mother 78 Hyperlipidemia Mother Hypertension Mother Skin cancer Mother 70 Diabetes Mother Uterine cancer Maternal Grandmother 62 Ovarian cancer Maternal Grandmother Stomach cancer Maternal Grandfather 40 Breast cancer Other MGM's sister, dx 50s Cancer Maternal Uncle 70 spine, mets to lungs Breast cancer Other MGM's sister, dx 50s Current Outpatient Medications Medication Sig Dispense Refill aspirin 81 mg chewable tablet Chew 1 tablet (81 mg total) and swallow in the morning. calcium carbonate-vitamin D3 (OSCAL 500 + D) 500 mg(1,250mg) -200 units per tablet Take 1 tablet by mouth in the morning and 1 tablet in the evening. Take with meals. colesevelam (WELCHOL) 625 mg tablet Take 4 tablets (2,500 mg total) by mouth in the morning. 11 evening primrose oil 500 mg capsule Take by mouth daily. glucosamine-chondroitin 500-400 mg tablet Take 1 tablet by mouth 3 (three) times a day. multivitamin capsule Take 1 capsule by mouth in the morning. omega-3 fatty acids-fish oil 300-1,000 mg capsule Take 2 capsules (2 g total) by mouth in the morning. No current facility-administered medications for this visit. ALLERGIES No Known Allergies Review of Systems Constitutional: Negative. Respiratory: Negative. Negative for chest tightness and shortness of breath. Cardiovascular: Negative. Negative for chest pain and palpitations. Gastrointestinal: Negative. Negative for constipation, diarrhea, nausea and vomiting. Endocrine: Negative. Genitourinary: Negative. Negative for pelvic pain and vaginal bleeding. Musculoskeletal: Negative. Skin: Negative. Allergic/Immunologic: Negative. Neurological: Negative. Hematological: Negative. Psychiatric/Behavioral: Negative. Physical Exam BP 118/82 Ht 166.4 cm (5' 5.5 ) Wt 92.1 kg (203 lb) BMI 33.27 kg/m Physical Exam Vitals and nursing note reviewed. Constitutional: Appearance: Normal appearance. HENT: Head: Normocephalic and atraumatic. Cardiovascular: Rate and Rhythm: Normal rate and regular rhythm. Pulses: Normal pulses. Heart sounds: Normal heart sounds. Pulmonary: Effort: Pulmonary effort is normal. Breath sounds: Normal breath sounds. Chest: Breasts: Breasts are symmetrical. Right: Normal. No mass, skin change or tenderness. Left: Normal. No mass, skin change or tenderness. Abdominal: General: Bowel sounds are normal. Palpations: Abdomen is soft. Genitourinary: General: Normal vulva. Labia: Right: No rash or lesion. Left: No rash or lesion. Vagina: Normal. Cervix: Normal. Uterus: Normal. Not enlarged and not tender. Adnexa: Right adnexa normal and left adnexa normal. Right: No mass, tenderness or fullness. Left: No mass, tenderness or fullness. Musculoskeletal: General: Normal range of motion. Cervical back: Normal range of motion and neck supple. Skin: General: Skin is warm and dry. Neurological: Mental Status: She is alert and oriented to person, place, and time. Psychiatric: Mood and Affect: Mood normal. Speech: Speech normal. Behavior: Behavior normal. Thought Content: Thought content normal. Judgment: Judgment normal. Assessment / Plan Bria was seen today for gynecologic exam. Diagnoses and all orders for this visit: Well woman exam with routine gynecological exam Endometrial thickening on ultrasound - Ultrasound pelvic with transvaginal; Future Standardized adult depression screening tool completed Next pap due 2027. Discussed ASCCP screening guidelines. BMI is above average; Discussed eating tips for weight loss and and exercise steps. Discussed SBE. Discussed taking a multivitamin. Discussed Calcium and Vitamin D for prevention of osteoporosis. Discussed need for yearly mammogram after 40 yo. Patient to discuss colon cancer screening recommendations with PCP. Educational material provided. All questions answered. 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 TOÑITO Martinez APRN-CNP 12/01/23 1134 documented in this encounter [facility] 12-23-2022 Note OPERATIVE NOTE OPERATION DATE: 12/23/2022 PREOPERATIVE DIAGNOSIS: History of colitis. POSTOPERATIVE DIAGNOSIS: Normal colon. PROCEDURE: Colonoscopy to cecum. SURGEON: Albania Rowland M.D. ANESTHESIA: Monitored anesthesia care. ESTIMATED BLOOD LOSS: Zero. INDICATIONS AND CONSENT: Patient is a 57-year-old female with history of colitis in August requiring hospitalization. CT revealed evidence of colitis in the transverse colon. Symptoms have subsequently resolved. She was on Eliquis back then for a blood clot, and now has been off of that. Has had no bowel changes or loose stools. Indications, risks, benefits, alternatives of proceeding with colonoscopy were explained extensively to the patient, including the risks of bleeding, colon perforation or anesthetic complications. All of her questions were answered. Informed consent was obtained. PROCEDURE: Patient brought to the operating room, placed in the left lateral decubitus position. Monitored anesthesia care was provided. Rectal exam was performed which showed no masses or blood. The scope was inserted into the anal canal. Under direct visualization was advanced. With the aid of abdominal compression, it was advanced to the cecum where cecal markings were clearly identified. There was noted to be a good prep. Upon withdrawal of the scope, mucosal surfaces were carefully examined. There were no mass lesions or polyps. No inflammatory changes or ulcerations. No significant diverticulosis. The scope was retroflexed in the anal canal. There was no significant hemorrhoidal disease. Scope was then withdrawn. Patient tolerated procedure well, was sent to recovery room in good condition. CC: Noemi Falcon CNP [facility] 08-21-2022 Note Chief Complaint consultation for N/V, loose stools and abdominal pain HPI Staff 56 year old female presents on consultation from Emmy Falcon for nausea, vomiting, bloody loose stools and abdominal pain. 07/29- stool studies negative. 07/29- CT abdomen/pelvis with colitis. Reports all symptoms have resolved. Never had colonoscopy in the past. 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, recent LLE DVT, referred for episode of colitis/gastroenteritis; admitted mid July to [facility] for crampy abd pain, N/V; bloody diarrhea; stools studies negative; abd/pelvic ct scan with transverse colitis; resolved with antibiotics and steroids; now without pain, normal bms; no h/o similar problems in past, no ill contacts; did have COVID in June; abdominal operations significant for x 3; no previous colonoscopy, has had 2 negative Cologuard tests; last one in June; on Eliquis, no asa or NSAID use; was taking Advil prn prior to Eliquis; no SBE prophylaxis; no fmhx of GI malignancy or IBD. no tobacco use. Review of Systems PHQ Score Initial Depression Screen Score: 0 ROS - Provider Constitutional: no fever, no sweats, no weight loss. Eyes: no glasses, no blurred vision, no visual loss. ENMT: no dentures, no hoarseness, no swallowing difficulties, no hearing loss, no ear infection(s), no nose bleeds. Cardiovascular: normal blood pressure, no chest pain, regular heartbeat, no heart murmur. Respiratory: no shortness of breath, no cough, no asthma, no wheezing. Gastrointestinal: no nausea, no vomiting, no diarrhea, no constipation, no blood in stool, no change in bowel habits, no abdominal pain, no hepatitis. Genitourinary: no kidney stones, no urine infection, no dysuria. Musculoskeletal: no pain, no weakness. Skin: no changing moles, no rash, no skin lumps. Neurologic: no seizures, no epilepsy, no headache. Psychiatric: no emotional or psychiatric problem. Heme/Lymph: no bleeding problems, no anemia, no blood clots, no transfusions. Allergy/Immunologic: no swollen lymph nodes/glands, no IV drug abuse. Other: Additional ROS info: Except as noted in the above Review of Systems and in the History of Present Illness, all other systems have been reviewed and are negative or noncontributory. Physical Exam Vitals & Measurements HR: 76(Peripheral) RR: 16 BP: 126/80 HT: 65 in HT: 166 cm WT: 83.7 kg WT: 184.14 lb BMI: 30.37 HEENT: normal conjunctiva, sclera clear, no scleral icterus, EOM intact, PERRLA, oral mucosa moist without lesions. Neck: trachea midline, no mass, symmetric, no thyromegaly or nodules, no adenopathy Respiratory: lungs CTA, respirations non labored. Cardiovascular: regular rate and rhythm, no murmur, no pedal edema or varicosities. Gastrointestinal: soft, non distended, no tenderness, no masses, no palpable hernias, diastasis recti no, no hepatosplenomegaly; normal bs Lymphatic: no cervical adenopathy, Musculoskeletal: normal gait, digits and nails without infection, nodes, cyanosis, clubbing. Skin: no rashes, no lesions, no ulcers, no subcutaneous nodules, induration. Psychiatric/Neuro: oriented to time, place, person, judgement normal, affect appropriate for age, insight intact, no focal deficits. Tests: labs reviewed, x-rays reviewed, review of old records completed, Discussed surgical options, risks, and possible complications with patient. Assessment/Plan 1. Colitis (K52.9: Noninfective gastroenteritis and colitis, unspecified) resolved; recommend colonoscopy in future to evaluation mucosa, possible IBD; will wait until off Eliquis for DVT; plan for 11/2022; call sooner if problems/questions. Follow-up No qualifying data available Problem List/Past Medical History Ongoing Atypical ductal hyperplasia of breast BMI 30.0-30.9,adult CKD (chronic kidney disease), stage II Colitis Elevated blood sugar Hyperlipidemia Obesity Historical No qualifying data Procedure/Surgical History section, section, section, Lumpectomy of right breast. Medications colesevelam 625 mg Tab, 2500 mg= 4 tab(s), Oral, Daily Eliquis 5 mg oral tablet, 5 mg= 1 tab(s), Oral, BID tamoxifen 10 mg Tab, 10 mg= 1 tab(s), Oral, BID Allergies statins (Unknown) Social History Alcohol - Denies Alcohol Use, 08/21/2022 Substance Abuse - Denies Substance Abuse, 08/21/2022 Tobacco Never (less than 100 in lifetime) Tobacco Use:. Never Smokeless Tobacco Use:., 08/21/2022 Family History Asthma: Sister and Brother. Bipolar disorder: Sister. Diabetes mellitus type 2: Mother and Sister. Hypertension: Mother. Primary malignant neoplasm of female breast: Mother. Primary malignant neoplasm of lung: Mother. Primary malignant neoplasm of skin: Mother. Uterine cancer: Mother. [facility] Comment on above: Result Comment: Elec tronically Signed By: JANETT WAGGONER, Albania Castellanos\Date and Time Signed: 08/21/22 16:41 EDT Evaluation + Plan note No data available for this section [facility] Evaluation note Diagnosis Well woman exam with routine gynecological exam- Primary Routine gynecological examination Encounter for screening mammogram for breast cancer Endometrial thickening on ultrasound Standardized adult depression screening tool completed [facility] Diagnosis Well woman exam with routine gynecological exam- Primary Routine gynecological examination Endometrial thickening on ultrasound Standardized adult depression screening tool completed [facility] Diagnosis Abnormality of left breast on screening mammogram- Primary Hx of breast cancer Personal history of malignant neoplasm of breast Scattered fibroglandular tissue density of both breasts on mammography [facility] Diagnosis Abnormality of left breast on screening mammogram- Primary Family history of breast cancer Family history of malignant neoplasm of breast Hx of breast cancer Personal history of malignant neoplasm of breast Scattered fibroglandular tissue density of both breasts on mammography [facility] Diagnosis Abnormality of left breast on screening mammogram- Primary [facility] No data available for this section [facility] Instructions* Attachments The following attachments cannot be sent through Care Everywhere. * Semaglutide? ADULT (Cuban) * Calcium and vitamin D for bone health (Cuban) [facility] SystemInstructions* Attachments The following attachments cannot be sent through Care Everywhere. * Lowering Your Risk of Breast Cancer (Cuban) documented in this encounterProJackson Medical Center Health SystemInstructionsNot on file documented in this encounterProJackson Medical Center Dividend Solar SystemInstructionsNot on file documented in this encounterDelaware County Hospital SystemProgress note No data available for this section General Surgery [place] Summary Purpose Family History No Family History Records FoundNo Family History Records FoundNo Family History Records FoundNo Family History Records Found Advance Directives No Advanced Directives Records FoundNo Advanced Directives Records FoundNo Advanced Directives Records FoundNo Advanced Directives Records Found Additional Source Comments Patient Care team informatio n (unrecognized section and content) Measurement Superintendent Relationship Specialty Start Date End Date Noemi Falcon APRN-CNP [address] [facility], [place] [address] PCP - General Family Medicine 12/27/20 Measurement Superintendent Relationship Specialty Start Date End Date Noemi Falcon APRN-CNP [address] [facility], [place] [address] PCP - General Family Medicine 12/27/20 Measurement Superintendent Relationship Specialty Start Date End Date Noemi Falcon APRN-CNP [address] [facility], [place] [address] PCP - General Family Medicine 12/27/20 Measurement Superintendent Relationship Specialty Start Date End Date Noemi Falcon APRN-CNP [address] [facility], [place] [address] PCP - General Family Medicine 12/27/20 INFORMATION SOURCE (unrecogn ized section and content) DATE CREATED AUTHOR 12/30/[address] [facility] DATE CREATED AUTHOR AUTHOR'S ORGANIZ ATION 12/31/2022 [facility] DATE CREATED AUTHOR AUTHOR'S ORGANIZ ATION 12/07/2024 [facility] DATE CREATED AUTHOR AUTHOR'S ORGANIZ ATION 07/11/2025 [facility] Reason for Visit (unrecogniz ed section and content) Reason Comments Gynecologic Exam Pt is here for annua l exam. Reason Comments Gynecologic Exam Pt is here for annua l exam. Pt is scheduled on 12-[address] Plummer. FOR RECORDS PERTAINING TO PATIENTS WHO ARE OR HAVE BEEN ENROLLED IN A CHEMICAL DEPENDENCY/SUBSTANCEABUSE PROGRAM, SOME INFORMATION MAY BE OMITTED. This clinical summary was aggregated from multiple sources. Caution should be exercised in using it in the provision of clinical care. This summary normalizes information from multiple sources, and as a consequence, information in this document may materially change the coding, format and clinical context of patient data. In addition, data may be omitted in some cases. CLINICAL DECISIONS SHOULD BE BASED ON THE PRIMARY CLINICAL RECORDS. [facility]. provides no warranty or guarantee of the accuracy or completeness of information in this document.
[2025-08-01 08:21] LABS: Hematocrit 38.7 % (36.0-48.0); Hemoglobin 13.2 g/dL (12.0-16.0); Immature Granulocytes Abs Auto 0.03 10^3/uL (0.00-0.03); Immature Granulocytes Pct Auto 0.4 % (0.0-0.5); Lymphocytes Absolute Auto 2.4 10^3/uL (1.2-3.8); Mean Corpuscular HGB Conc 34.1 g/dL (29.9-35.2); Mean Corpuscular Hemoglobin 29.5 pg (26.7-34.0); Mean Corpuscular Volume 86.4 fL (81.0-99.0); Platelet Count 382 10^3/uL (150-450); Red Blood Count 4.48 10^6/uL (4.20-5.40); White Blood Count 7.4 10^3/uL (4.0-11.0)
[2025-08-01 08:24] LABS: Iron 86.0 ug/dL (50.0-170.0)
[2025-08-01 08:37] LABS: Alanine Aminotransferase 30 U/L (14-59); Albumin Globulin Ratio 1.0; Albumin Level 3.6 g/dL (3.4-5.0); Alkaline Phosphatase 63 U/L (46-116); Anion Gap 13.9; Aspartate Amino Transferase 19 U/L (15-37); Blood Urea Nitrogen 18.0 mg/dL (7.0-18.0); Calcium 9.4 mg/dL (8.5-10.1); Carbon Dioxide 25.5 mmol/L (21.0-32.0); Chloride 108 mmol/L (98-107); Cholesterol 184 mg/dL (<=200); Estimated GFR (African America >60 (>=60 mL/min/1.73m^2); Estimated GFR (Non-African Ame >60 (>=60 mL/min/1.73m^2); Free T3 2.82 pg/mL (2.18-3.98); Globulin 3.7 g/dL; Glucose 91 mg/dL (74-106); HDL Cholesterol 52 mg/dL (40-60); Potassium 3.4 mmol/L (3.5-5.1); Sodium 144 mmol/L (136-145); Thyroid Stimulating Hormone 1.899 uIU/mL (0.358-3.740); Total Protein 7.3 g/dL (6.4-8.2); Triglycerides 96 mg/dL (<=150); VLDL CHOLESTEROL 19.2 mg/dL
== END 2025-08-01 07:26 | disposition home or self-care (01) ==
PROVIDERS: PCP Nurse Practitioner Family; Visit Provider Nurse Practitioner Family
DX: Z00.00 Encounter for general adult medical examination without abnormal findings (principal)
CPT/HCPCS: 36415; 80053; 80061; 82306; 83036; 83525; 83540; 84436; 84443; 84481; 85025

== ENCOUNTER 2025-09-14 07:22 | Outpatient (OUT) | payer BC, SELFPAY ==
--- OUTSIDE RECORDS SUMMARY | 2025-09-14 07:26 | XMS_ITS | Clinical Summary ---
Author Organization DoorDashs tem Address [facility] [place] [id number] [address] [place] [address] Care Team Providers Care Rodeo Rider Name Role Phone Noemi Degroot Cirilo FRANCOISN-LICENSED CHEMICAL SPRAY TECHNICIAN Primary Care Provider Allergies No known active allergies Medications MedicationSigDispense QuantityRefillsLast FilledStart DateEnd DateStatus colesevelam (WELCHOL) 625 mg tablet Take 4 tablets (2,500 mg total) by mouth in the morning.11112/22/2017Active multivitamin capsule Take 1 capsule by mouth in the morning.Active omega-3 fatty acids-fish oil 300-1,000 mg capsule Take 2 capsules (2 g total) by mouth in the morning.Active calcium carbonate-vitamin D3 (OSCAL 500 + D) 500 mg(1,250mg) -200 units per tablet Take 1 tablet by mouth in the morning and 1 tablet in the evening. Take with meals.Active glucosamine-chondroitin 500-400 mg tablet Take 1 tablet by mouth 3 (three) times a day.Active aspirin 81 mg chewable tablet Chew 1 tablet (81 mg total) and swallow in the morning.Active evening primrose oil 500 mg capsule Take by mouth daily.Active Active Problems ProblemNoted DateDiagnosed DateScattered fibroglandular tissue density of both breasts on zruumzboiey01/20/0780Djzciafnbdrsmc87/17/2024Obesity (BMI 30.0-34.9) 12/01/2023Endometrial thickening on bttqmcifri81/12/2021Family history of breast aplqho9212/29/2018Atypical ductal hyperplasia of right yoodpk4912/29/2018At high risk for breast qmzxjd8212/29/2018 Encounters DateTypeDepartmentCare CdmdGenfxjifzxl22/26/2025 8:10 AM EDT - 07/10/2025 11:59 PM EDTHospital Encounter [facility] [address] [place] [address] Fracnes Andrews, FELT CARBONIZER-LICENSED CHEMICAL SPRAY TECHNICIAN Abnormality of left breast on screening mammogram; Family history of breast cancer; Hx of breast cancer; Scattered fibroglandular tissue density of both breasts on mammography Discharge Disposition: Home07/10/2025Results Follow-Up [facility] [place] [address] [place] [address] Frances Andrews, FELT CARBONIZER-LICENSED CHEMICAL SPRAY TECHNICIAN Mammography diagnostic unilateral left with CAD07/08/2025Travelfrom Last 3 Months Family History Medical HistoryRelationNameCommentsPancreatic cancerBrotherStomach cancer Maternal GrandfatherOvarian cancerMaternal GrandmotherLucilleUterine cancer Maternal GrandmotherLucilleCancerMaternal Unclespine, mets to lungsBreast cancer MotherPhyllisDiabetesMotherPhyllisType 2HyperlipidemiaMotherPhyllisHypertension MotherPhyllisLung cancerMotherPhyllisSkin cancerMotherPhyllisBreast cancerOther 1great auntMAMERICA's sister, dx 50sBreast cancerOther 2great aunPortia's sister, dx 50sAsthmaSisterRenaDiabetesSisterRenaType 2RelationNameStatusCommentsBrother DeceasedFatherDeceasedMaternal GrandfatherMaternal GrandmotherLucilleDeceased Maternal UncleMotherPhyllisAliveOther 1great auntOther 2great auntSisterRena Alive Social History Tobacco UseTypesPacks/DayYears UsedDateSmoking Tobacco: NeverSmokeless Tobacco: Never Tobacco Cessation:Counseling Given: Not Answered Alcohol UseStandard Drinks/WeekCommentsNo0 (1 standard drink = 0.6 oz pure alcohol)Social Connection and Isolation PanelAnswerDate RecordedIn a typical week, how many times do you talk on the phone with family, friends, or neighbors?More than three times a week12/28/2022How often do you get together with friends or relatives?Three times a week12/28/2022How often do you attend congregational or hinduism services?Never12/28/2022o you belong to any clubs or organizations such as congregational groups, unions, fraternal or athletic groups, or school groups?No12/28/2022How often do you attend meetings of the clubs or organizations you belong to?Patient /13/2023re you , , , , never , or living with a partner?Nyfammkj28/13/2023 AUDIT-CAnswerDate RecordedQ1: How often do you have a drink containing alcohol? Never12/28/2022Q2: How many drinks containing alcohol do you have on a typical day when you are drinking?Patient does not drink12/28/2022Q3: How often do you have six or more drinks on one occasion?Never12/28/2022Overall Financial Resource Strain (CARDIA)AnswerDate RecordedHow hard is it for you to pay for the very basics like food, housing, medical care, and heating?Not hard at all 12/28/2022HQ-2AnswerDate RecordedTotal Sykjy389Finjordan [facility] [place] of Occupational Health - Occupational Stress QuestionnaireAnswerDate RecordedDo you feel stress - tense, restless, nervous, or anxious, or unable to sleep at night because yourmind is troubled all the time - these days?Not at all12/28/2022 Exercise Vital SignAnswerDate RecordedOn average, how many days per week do you engage in moderate to strenuous exercise (like a brisk walk)?0 days12/28/2022On average, how many minutes do you engage in exercise at this level?0 min 12/28/2022RAPARE - TransportationAnswerDate RecordedIn the past 12 months, has lack of transportation kept you from medical appointments or from getting medications?No12/28/2022In the past 12 months, has lack of transportation kept you from meetings, work, or from getting things needed for daily living?No 12/28/2022Housing InstabilityAnswerDate RecordedAre you worried or concerned that in the next two months you may not have stable housing that you own, rent or stay in as a part of a household?No12/28/2022hildcareAnswerDate RecordedDo problems getting children's counselor make it difficult for you to work or study?No 12/28/2022EmploymentAnswerDate RecordedDo you need help finding a local career center and/or a training program?No12/28/2022Hunger ScreeningAnswerDate Recorded Within the past 12 months we worried whether our food would run out before we got money to buy more.Never True12/06/2024Within the past 12 months the food we bought just didn't last and we didn't have money to get more.Never True 12/06/2024Purpose - LifeAnswerDate RecordedI have a purpose and direction in my life.Strongly Agree12/28/2022EducationAnswerDate RecordedWhat is the highest level of school you have completed or the highest degree you have received? Bachelor's degree (e.g., BA, AB, BS)12/23/2019CommentsNoSex and Gender InformationValueDate RecordedSex Assigned at SfayrIupyhs47/10/2021 10:11 AM EST Legal FcxDnsotd62/06/2015 11:55 AM EDTGender LmdfylpuLqtnma05/10/2021 10:11 AM ESTSexual JajfepqhvdzTiepeasc10/10/2021 10:11 AM EST Last Filed Vital Signs Vital SignReadingTime TakenCommentsBlood Ohesgqea984/8001 8:13 AM EST Alqps3854 8:57 AM YUUPnbbgerwjlc45.1 ??C (98.8 ??F)02/02/2023 8:57 AM EDTRespiratory Vlnj584802/02/2023 8:57 AM EDTOxygen Odddmfkwqs32%02/02/2023 8:57 AM EDTInhaled Oxygen Concentration--Ofvazx92.1 kg (203 lb)12/06/2024 8:13 AM EST Cuigaa204.9 cm (5' 6.5 )12/06/2024 8:13 AM ESTBody Mass Index32.2701/ 8:13 AM EST Plan of Treatment Health MaintenanceDue DateLast DoneCommentsDTaP,Tdap and Td Vaccines (1 - Tdap) 1982Zoster (Shingles) Vaccine (1 of 2)2013Influenza Vaccine 511/, 10/03/2024, 09/10/2023, Additional history existsPap Smear , 11/24/2022, 10/31/2019, Additional history existsAdult BMI Follow Up [facility] BMI Vzyqsihql90 Depression Ttvpvrfyb85Tobacco Laxxfgrjq85 Netgnxeob42, 01/09/2025, 01/04/2025, Additional history exists COVID-19 HxqjdpoWzvavfyuz59/19/2024, 09/10/2023, 10/04/2021, Additional history exists Medical Devices Not on file Procedures Procedure NamePriorityDate/TimeAssociated DiagnosisCommentsMAMM DIAGNOSTIC UNILAT LT W ZWANoghyjp84/26/2025 8:33 AM EDT Abnormality of left breast on screening mammogram Family history of breast cancer Hx of breast cancer Scattered fibroglandular tissue density of both breasts on mammography HIGH RISK HPV W/FCWHHvnwcit76/10/2023 6:07 AM EST Screening for cervical cancer from Last 3 Months or Most Recently Relevant to Health Maintenance Results * Mammography diagnostic unilateral left with CAD (07/10/2025 8:33 AM EDT) Anatomical RegionLateralityModalityBreastLeftMammographySpecimen (Source) Anatomical Location / LateralityCollection Method / VolumeCollection Time Received Time07/10/2025 8:55 AM EDT Narrative 07/10/2025 8:58 AM EDT BRIA MARIA 1965 [id number] EXAM: MAMM DIAGNOSTIC UNILAT LT W CAD, [...] There are scattered areas of fibroglandular density. ?? Previously visualized left breast calcifications are no longer evident. A mass in the 11-12:00 region posteriorly is less prominent. There There are no suspicious masses, calcifications, or areas of architectural distortion. IMPRESSION: No mammographic evidence of malignancy. BI-RADS: BI-RADS 1 - Negative RECOMMENDATION: ??Return to annual screening mammography.. The patient will be due for bilateral mammography in 6 months. Patient was given the results before leaving the department. Finalized by Isaiah Lunsford MD on 07/10/2025 8:58 AM 1 b RETURN TO [facility] Accredited Performing Facility: [facility] - Mammography/DEXA Imaging [address] [id number] Procedure Note Isaiah Lunsford MD - 07/10/2025 BRIA MARIA 1965 [id number] EXAM: MAMM DIAGNOSTIC UNILAT LT W CAD, [...] 07/10/2025 8:58 AM 1 b RETURN TO [facility] Accredited Performing Facility: [facility] - Mammography/DEXA Imaging [address] [facility] [address] Authorizing ProviderResult TypeResult StatusLisa Obdulio Andrews FELT CARBONIZER-CNPIMG MAMMOGRAPHY ORDERABLESFinal Result * High risk HPV w/jean-paul (11/24/2022 6:07 AM EST)ComponentValueRef RangeTest MethodAnalysis TimePerformed AtPathologist SignatureHpv specimen typeThinPrep 11/25/2022 6:07 AM ESTBALDWIN PARK HOSPITALHpv 16NegativeNegative^Negative 11/27/2022 2:11 PM [facility] LABHpv 18Negative Negative^Swkppqjn58/13/2023 2:11 PM [facility] LABOther high risk hpvNegativeNegative^Pspghqgw86/13/2023 2:11 PM [facility] LABComment: HPV types 31,33,35,39,45,52,56,58,59,66 and 68 DNA were undetectable. Specimen (Source)Anatomical Location / LateralityCollection Method / Volume Collection TimeReceived MtwvXZNFP78/10/2023 6:07 AM EST11/25/2022 6:08 AM EST Narrative Authorizing ProviderResult TypeResult StatusCoblayne POSEY BLOOD ORDERABLESFinal ResultPerforming OrganizationAddressCity/State/ZIP CodePhone Number [facility] [address] [facility] [place] [address] [facility] [address] [place] [address] from Last 3 Months or Most Recently Relevant to Health Maintenance Insurance Care Teams Team MemberRelationshipSpecialtyStart DateEnd Date Noemi Degroot, FELT CARBONIZER-LICENSED CHEMICAL SPRAY TECHNICIAN [address] [facility], [place] [address] PCP - GeneralFamily Medicine12/27/20
--- OUTSIDE RECORDS SUMMARY | 2025-09-14 07:26 | XMS_ITS | Encounter Summary ---
Author Organization [facility] Address [facility] [id number] [address] [place] [address] Care Team Providers Care Feller Operator Name Role Phone Noemi Degroot RECONCILER-GLOBAL POSITION SYSTEM TECHNICIAN Primary Care Provider Encounter Details DateTypeDepartmentCare Team (Latest Contact Info)Fseqbfvvebk29/26/2025Results Follow-Up [facility] Women[facility] Services - [place] [address] [facility] [place] [address] Frances Andrews, RECONCILER-GLOBAL POSITION SYSTEM TECHNICIAN [address] [place] [address] Mammography diagnostic unilateral left with CAD Social History Tobacco UseTypesPacks/DayYears UsedDateSmoking Tobacco: NeverSmokeless Tobacco: NeverAlcohol UseStandard Drinks/WeekCommentsNo0 (1 standard drink = 0.6 oz pure alcohol)Social Connection and Isolation PanelAnswerDate RecordedIn a typical week, how many times do you talk on the phone with family, friends, or neighbors?More than three times a week12/28/2022How often do you get together with friends or relatives?Three times a week12/28/2022How often do you attend sikh or jew services?Never3Do you belong to any clubs or organizations such as sikh groups, unions, fraternal or athletic groups, or school groups?No02/13/2023How often do you attend meetings of the clubs or organizations you belong to?Patient qvppemid79/13/2023re you , , , , never , or living with a partner?Lbzfueqz50/13/2023 AUDIT-CAnswerDate RecordedQ1: How often do you have [...] and heating?Not hard at all 12/28/2022HQ-2AnswerDate RecordedTotal Wpfnt566Fin[facility] [place] of Occupational Health - Occupational Stress QuestionnaireAnswerDate [...] part of a household?No12/28/2022hildcareAnswerDate RecordedDo problems getting child abuse worker make it difficult for you to work [...] BS)12/23/2019CommentsNoSex and Gender InformationValueDate RecordedSex Assigned at HaszaRzfizz28/10/2021 10:11 AM EST Legal QjfAclhkp55/06/2015 11:55 AM EDTGender UsrvkldcEzrjdc13/10/2021 10:11 AM ESTSexual VavkpzpyrfoFvduzxsz08/10/2021 10:11 AM ESTdocumented as of this encounter Plan of Treatment Not on file documented as of this encounter Visit Diagnoses Not on filedocumented in this encounter Additional Health Concerns AssessmentNoted TimePHQ-9 Depression Total Score: 8:15 AM ESTA Body Mass Index follow-up plan has been documented for the emepcjm6012/06/2024 8:50 AM ESTdocumented as of this encounter Care Teams Team MemberRelationshipSpecialtyStart DateEnd Date Noemi Degroot, RECONCILER-GLOBAL POSITION SYSTEM TECHNICIAN [address] [place] [address] PCP - GeneralFamily Medicine12/27/20documented as of this encounter
--- OUTSIDE RECORDS SUMMARY | 2025-09-14 07:26 | XMS_ITS | Clinical Summary ---
Author Organization [facility] Address [address] [place] [address] Care Team Providers Care Floral Clerk Name Role Phone Unavailable Primary Care Provider Unavailabl e Social History Tobacco UseTypesPacks/DayYears UsedDateSmoking Tobacco: Never Assessed CommentsUnknownSex and Gender InformationValueDate RecordedSex Assigned at Not on fileLegal IcnMgxtty31/15/2023 6:35 PM EDTGender IdentityNot on fileSexual OrientationNot on file Last Filed Vital Signs Vital SignReadingTime TakenCommentsBlood Ftefqxkp770/7410 12:00 PM EDT Pulse--Temperature--Respiratory Rate--Oxygen Saturation--Inhaled Oxygen Concentration--Njucwf59.5 kg (184 lb)08/20/2022 12:00 PM HVGUovbmb508.6 cm (5' 6 )08/20/2022 12:00 PM EDTBody Mass Index29.710 12:00 PM EDT Plan of Treatment DateTypeDepartmentCare Team (Latest Contact Info)Pkhapiphkdd43/04/2025 11:35 AM ESTOffice Visit [facility] [address] [address] [address] [place] [address] Viry Segal MD [address] [facility] [address] [place] [address] Health MaintenanceDue DateLast DoneCommentsCT Updrxybgsabl1963Colonoscopy 1965Colorectal Cancer Ijxejyebz1963FIT-DNA1963FIT1963 FOBT1965 9987Qpdmuxosvkapg1963Influenza Vaccine (#1)/, 09/10/2023, 09/02/2022, Additional history existsPap Smear/08/2023 Ivdglkebe18/, 01/09/2025, 01/04/2025, Additional history exists Cervical Cancer Wqnxqmjvj53/10/2028HPV/Sgqbxq41/08/2023, 10/31/2019 Insurance
--- OUTSIDE RECORDS SUMMARY | 2025-09-14 07:26 | XMS_ITS | CCD ---
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 Name Role Phone Freddie Epps Primary Care Physician [phone] NOEMI FALCON Primary Care Unavailable NILL, DR LOVELACE Admitting Unavailable NILL, DR LOVELACE Attending Unavailable NILL, DR LOVELACE Consulting Unavailable JESUS BENTON Consulting Unavailable STALIN HUNG Consulting Unavailable NILL, DR LOVELACE Admitting Unavailable NILL, DR LOVELACE Attending Unavailable TERRIE, NOEMI Primary Care Unavailable TERRIE, NOEMI Primary Care Unavailable HOY, DR JAEGER Attending Unavailable NURYSY, DR JAEGER Consulting Unavailable UNIQUE, DR JAEGER Admitting Unavailable CAT, DR TURCIOS Consulting Unavailable LENNIE BARTLETT Consulting Unavailable KENDELL GRIMM Consulting Unavailable AMIN, GILMAR Consulting Unavailable TERRIE, NOEMI Admitting Unavailable BARNEY, DR CAROLINE Lopes Consulting Unavailable TERRIE, NOEMI Attending Unavailable TERRIE, NOEMI Primary Care Unavailable TERRIE, NOEMI Consulting Unavailable TERRIE, NOEMI Primary Care Unavailable UNIQUE, DR JAEGER Admitting Unavailable HOY, DR JAEGER Attending Unavailable HOY, DR JAEGER Consulting Unavailable TERRIE, NOEMI Admitting Unavailable TERRIE, NOEMI Attending Unavailable TERRIE, NOEMI Consulting Unavailable TERRIE, NOEMI Primary Care Unavailable TERRIE, NOEMI Admitting Unavailable TERRIE, NOEMI Attending Unavailable BARNEY, DR CAROLINE Lopes Consulting Unavailable TERRIE, NOEMI Primary Care Unavailable TERRIE, NOEMI Consulting Unavailable NILLAdair Attending Unavailable TERRIE, NOEMI S Referring Unavailable NILLAdair Attending Unavailable NILLAdair Attending Unavailable NILLAdair Attending Unavailable Terrie AERIAL PHOTOGRAPH INTERPRETER-PRODUCTION HARDENER, Noemi S Primary Care Provider TERRIE, NOEMI S Referring Unavailable TERRIE, NOEMI S Primary Care Unavailable Terrie AERIAL PHOTOGRAPH INTERPRETER-PRODUCTION HARDENER, Noemi S Primary Care Provider FRANCES ANDREWS Attending Unavailable FRANCES ANDREWS Referring Unavailable TERRIE, NOEMI S Primary Care Unavailable KROTZER, FRANCES M Attending Unavailable KROTZER, FRANCES M Referring Unavailable TERRIE, NOEMI S Primary Care Unavailable KRNIYAHZER, FRANCES M Attending Unavailable KROTZER, FRANCES M Referring Unavailable TERRIE, NOEMI S Primary Care Unavailable KROTZER, FRANCES M Attending Unavailable KROTZER, FRANCES M Referring Unavailable TERRIE, NOEMI S Primary Care Unavailable KRNIYAHZER, FRANCES M Attending Unavailable KRNIYAHZER, FRANCES M Referring Unavailable TERRIE, NOEMI S Primary Care Unavailable Terrie AERIAL PHOTOGRAPH INTERPRETER-PRODUCTION HARDENER, Noemi S Primary Care Provider Allergies Allergy ClassificationReported Allergen(s)Allergy TypeDate of OnsetReaction(s) Facility (3 sources)HMG-CoA reductase inhibitor; Translations: [statins]Drug allergy Unknown (qualifier value), Muscle weakness (finding)[facility] [place] Medications Current Medications MedicationDrug Class(es)DatesSig (Normalized)Sig (Original)apixaban 5 mg oral tablet (1 source)Factor Xa InhibitorStart: 50-72-2111uosr 1 tablet by mouth twice daily Eliquis 5 mg oral tablet 5 mg = 1 tab(s), Oral, BID, Refills(s) 0 Start Date: 08/21/22 Status: Orderedaspirin 81 mg delayed release oral tablet (7 sources)Platelet Aggregation Inhibitor, Nonsteroidal Anti-inflammatory Drug Start: 69-42-5755rjmi 1 tablet by mouth once dailyaspirin 81 mg Oral EC Tab 81 mg = 1 tab(s), Oral, Daily, Refills(s) 0 Start Date: 11/25/22 Status: Ordered aspirin 81 mg chewable tablet Chew 1 tablet (81 mg total) and swallow in the morning. Activecalcium carbonate 1250 mg / cholecalciferol 200 unt oral tablet (6 sources)Vitamin Dtake 1 tablet by mouth once in the morningcalcium carbonate- vitamin D3 (OSCAL 500 + D) 500 mg(1,250mg) -200 units per tablet Take 1 tablet bymouth in the morning and 1 tablet in the evening. Take with meals. Active chondroitin sulfates 400 mg / glucosamine hydrochloride 500 mg oral tablet (6 sources)take 1 tablet by mouth three times dailyglucosamine-chondroitin 500- 400 mg tablet Take 1 tablet by mouth 3 (three) times a day. Activecolesevelam hydrochloride 625 mg oral tablet (8 sources)Bile Acid SequestrantStart: 21-87-3840pzef 4 tablets by mouth in the morningcolesevelam (WELCHOL) 625 mg tablet Take 4 tablets (2,500 mg total) by mouth in the morning. 11 10/21/2018 Activeevening primrose oil 500 mg oral capsule (6 sources)evening primrose oil 500 mg capsule Take by mouth daily. Active multivitamin capsule (6 sources)take 1 capsule by mouth in the morningmultivitamin capsule Take 1 capsule by mouth in the morning. Activetake 1 capsule by mouth in the morning multivitamin capsule Take 1 capsule by mouth in the morning. 0 Activeomega-3 fatty acids-fish oil 300-1,000 mg capsule (6 sources)take 2 capsules by mouth in the morningomega-3 fatty acids-fish oil 300-1,000 mg capsule Take 2 capsules (2 g total) by mouth in the morning. Active take 2 capsules by mouth in the morningomega-3 fatty acids-fish oil 300-1,000 mg capsule Take 2 capsules (2 g total) by mouth in the morning. 0 Active Completed/Discontinued Medications MedicationDrug Class(es)DatesSig (Normalized)Sig (Original)tamoxifen 20 mg oral tablet (3 sources)Estrogen Agonist/AntagonistStart: 03-24-2023 End: 12-71-0654eged 1 tablet by mouth once dailytamoxifen (NOLVADEX) 20 mg chemo tablet TAKE 1 TABLET BY MOUTH EVERY DAY 90 tablet 4 03/24/2023 12/01/2023 Discontinued (Therapy completed)Start: 15-45-6001ynep 1 tablet by mouth twice dailytamoxifen 10 mg Tab 10 mg = 1 tab(s), Oral, BID, Refills(s) 0 Start Date: 08/14/22 Status: Ordered Problems Active Problems Problem ClassificationProblemDateDocumented DateEpisodic/ChronicAbdominal pain (5 sources)Unspecified abdominal pain; Translations: [Lower abdominal pain, unspecified]Onset: 96-07-8098EylenqwmBczpblx kidney disease (3 sources)Chronic kidney disease stage 2; Translations: [Chronic kidney disease, stage 2 (mild)]Onset: 011771-83-5430SgwnkziRbgqdnfd mellitus without complication (2 sources)Mrwsgkiizsysj12-53-1152TawdnijoUqgbbczk of white blood cells (1 source)Elevated white blood cell count, unspecified; Translations: [ELEVATED WHITE BLOOD CELL COUNT UNS]Onset: 53-16-1113BwndfpyJfjrxhbxi of lipid metabolism (9 sources)Hyperlipidemia; Translations: [Hyperlipidemia, unspecified]Onset: 739916-19-1009CmcqhdfNkiwj gastrointestinal disorders (1 source)Personal history of other diseases of the digestive system; Translations: [PERSONAL HX OTH DZ DIGESTIVE SYSTEM]Onset: 33-63-9337Letvchsi Other gastrointestinal disorders (1 source)Diarrhea, unspecified; Translations: [DIARRHEA UNSPECIFIED]Onset: 41-72-3359CucybtdzYkldk nutritional; endocrine; and metabolic disorders (2 sources)Body mass index 30+ - npzhanw34-61-8483DglczkeBrdmp nutritional; endocrine; and metabolic disorders (3 sources)Obesity; Translations: [Obesity, unspecified]Onset: 12-01-2023 71-38-1581YecshcbNbrir nutritional; endocrine; and metabolic disorders (1 source)Obesity, unspecified; Translations: [OBESITY UNSPECIFIED]Onset: 61-17-2686GqvznqkCjwvp nutritional; endocrine; and metabolic disorders (1 source)Body mass index (BMI) 32.0-32.9, adult; Translations: [BODY MASS INDEX BMI 32.0-32.9 ADULT]Onset: 10-11-0543HrqzwrjXmkpm nutritional; endocrine; and metabolic disorders (5 sources)Obese class I; Translations: [Obesity (BMI 30.0-34.9)]Onset: 628745-26-0998UsbupckMmzsr screening for suspected conditions (not mental disorders or infectious disease) (10 sources)Endometrium thickened; Translations: [Abnormal findings on diagnostic imaging of other specified body structures]Onset: 01-24-2021 08-03-0481KviqsvrAlreiswgm; thrombophlebitis and thromboembolism (6 sources)Personal history of other venous thrombosis and embolism; Translations: [Acute embolism and thrombosis of unspecified vein]Onset: 29-72-3140TigahjhtRuvvojevu and history of mental health and substance abuse codes (3 sources)Standardized adult depression screening tool completed ; Translations: [Encounter for screening fordepression]Onset: EpisodicUnclassified (1 source)Gynecologic ExamOnset: 85-29-9952Tznvvdfwwkvw (1 source)Mammographic fibroglandular density, bilateral breasts; Translations: [Mammographic fibroglandular density, bilateral breasts]Onset: 01-04-2025 Past or Other Problems Problem ClassificationProblemDateDocumented DateEpisodic/ChronicAcute posthemorrhagic anemia (1 source)Acute posthemorrhagic anemia; Translations: [ACUTE POSTHEMORRHAGIC ANEMIA]Onset: 31-01-7216XizwypdqDgoncu of breast (4 sources)Personal history of malignant neoplasm of breast; Translations: [History of malignant neoplasm of breast]Onset: 994488-89-0529Cstlmwma Fluid and electrolyte disorders (1 source)Hypokalemia; Translations: [HYPOKALEMIA]Onset: 98-97-5960Rcytuinp Intestinal infection (3 sources)Infectious gastroenteritis and colitis, unspecified; Translations: [INF GASTROENTERITIS AND COLITISUNS]Onset: 62-68-2945NgqsfwssDgqq disorders (6 sources)Mood disordersOnset: 12-01-2023 Resolved: 370419-10-8177Eseyuexlvcxxs gastroenteritis (8 sources)Noninfectious enteritis; Translations: [Noninfective gastroenteritis and colitis, unspecified]Onset: 92-58-9522OwwosuqfSwmygayzvixo breast conditions (14 sources)Atypical ductal hyperplasia of breast; Translations: [Unspecified benign mammary dysplasia of rightbreast]Onset: 401580-07-3194FmqgxcvwAjdma aftercare (1 source)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; Translations: [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 CURRENT USE OF ASPIRIN]Onset: 32-11-0216YvsqcpbeSkjps aftercare (1 source)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; Translations: [OTH FPC CURRENT DRUG THERAPY]Onset: 13-15-6492DboetscsIunsj connective tissue disease (4 sources)Pain in left lower leg; Translations: [PAIN IN LEFT LOWER LEG]Onset: 16-30-2585CvusynuiSdhac screening for suspected conditions (not mental disorders or infectious disease) (7 sources)Patient encounter status; Translations: [Encounter for screening mammogram for malignant neoplasm of breast]Onset: 320230-36-7546Pecwhjrc Residual codes; unclassified (7 sources)Family history of breast cancer; Translations: [Family history of malignant neoplasm of breast]Onset: 465717-33-3338TuwviaktJxvroids codes; unclassified (6 sources)At high risk for breast cancer; Translations: [Other specified personal risk factors, not elsewhereclassified]Onset: EpisodicResidual codes; unclassified (1 source)Family history of malignant neoplasm of breast; Translations: [Family history of malignant neoplasmof breast]Onset: 19-26-5999BotqnomaJcgbctqtxunr (6 sources)Onset: 12-01-2023 Resolved: Results Test NameValueInterpretationReference RangeFacilityMAMM DIAGNOSTIC UNILAT LT W CADon 62-10-9223EQUW DIAGNOSTIC UNILAT LT W CADMAMM DIAGNOSTIC UNILAT LT W CAD BRIA WOLFFMER 1965 [id number] EXAM: MAMM DIAGNOSTIC UNILAT LT W CAD, [...] 07/10/2025 8:58 AM [facility] W CADon 06-96-8384OAXX DIAGNOSTIC UNILAT LT W CADMAMM DIAGNOSTIC UNILAT LT W CAD BRIA CHÁVEZ 1965 [id number], [id number] EXAM: MAMM DIAGNOSTIC UNILAT LT W CAD, [...] group of calcifications roughly 5 mm in diameter3:00 position of the breast anterior depth. Six-month mammogram follow-up recommended. Spot magnification views demonstrate a 5 mm ovoid mass 11-12 position roughly 9 cm from the nipple Left Breast Ultrasound, Limited TECHNIQUE: Multiple real-time [...] slightly complicated. Six-month mammogram recommended for follow-up. COMBINED IMPRESSION: Probably benign left breast mass and calcifications, six-month mammogram recommended to ensure stability of both findings BI-RADS: BI-RADS 3 - Probably Benign RECOMMENDATION: Repeat diagnostic mammogram in 6 months. Patient was given the results before leaving the department. Finalized by Hitesh Manzo MD on 01/09/2025 1:06 PM 3 b MAMM 6 MONTHNormalProMedica [facility] BREAST LT LIMITEDon 38-12-1929AT BREAST LT LIMITEDUS BREAST LT LIMITED BRIA CHÁVEZ 1965 [id number], [id number] EXAM: MAMM DIAGNOSTIC UNILAT LT W CAD, [...] group of calcifications roughly 5 mm in diameter3:00 position of the breast anterior depth. Six-month mammogram follow-up recommended. Spot magnification views demonstrate a 5 mm ovoid mass 11-12 position roughly 9 cm from the nipple Left Breast Ultrasound, Limited TECHNIQUE: Multiple real-time [...] slightly complicated. Six-month mammogram recommended for follow-up. COMBINED IMPRESSION: Probably benign left breast mass and calcifications, six-month mammogram recommended to ensure stability of both findings BI-RADS: BI-RADS 3 - Probably Benign RECOMMENDATION: Repeat diagnostic mammogram in 6 months. Patient was given the results before leaving the department. Finalized by Hitesh Manzo MD on 01/09/2025 1:06 PM 3 b MAMM 6 MONTHNoOur [facility] AndersonUS PELVIC WITH TRANSVAGINALon 80-52-0570BG PELVIC WITH TRANSVAGINALUS PELVIC WITH TRANSVAGINAL US PELVIC WITH TRANSVAGINAL: [...] to 8 mm. Correlate with history of vaginalbleeding/current medications and consideration to direct visualization as indicated in order to exclude neoplasm. 2. Redemonstration of a presumed multifibroid uterus the largest of which is intramural and measures up to 2.6 cm in the posterior uterine fundus. Finalized by Bradly Pepper MD on 01/05/2025 5:30 [facility] CenterM[facility] SCREEN[facility] BILATERAL W CADon 87-72-8702HHXE SCREENING BILATERAL W CADMAMM SCREENING BILATERAL W CAD BRIAHamida VELASCO KYLER 1965 [id number] EXAM: MAMM SCREENING BILATERAL W CAD, 01/04/2025 [...] on 01/04/2025 9:03 AM 0A b [facility] Colonoscopyon 12-24-2022 Outside [id number]#1.00CD:127DanaeUniversity Hospitals Portage Medical CenterReminderson 12-58-4220Qmidepgqj From: Noa Jacobs LPN To: N - Clinical; Sent: 12/24/2022 09:54:39 EST Show up: 11/22/2032 07:00:00 EST Subject: colonoscopy recall Due Date/Time: 12/23/2032 07:00:00 EST Reminder/Recall Patient is due for screening colonoscopy 12/23/2032.[facility] HospitalPre-Certification Formon 39-43-0131Cmn-Certification Form [id number]#1.00CD:127[facility] HospitalConsent for Procedure/Surgeryon 68-91-0343Lpptpmj for Procedure/Surgery [id number]#1.00CD:127[facility] HospitalGeneral Surgery Office/Clinic Noteon 10-87-6780Ursyjvn Surgery Office/Clinic NoteChief Complaint discuss proceeding with colonoscopy HPI Staff Presents to discuss proceeding with colonoscopy for previously diagnosed colitis. Last evaluation 08/21/22, was unable to hold Eliquis at that time. Denies abdominal pain or rectal bleeding since lastev. Never had colonoscopy in the past. History [...] no SBE prophylaxis; abdominal operations significant for c- section x 3; no fmhx of GI malignancy or IBD. no tobacco use. Review of Systems PHQ Score Initial Depression Screen Score: 0 ROS - Provider Constitutional: no fever, no sweats, no weight loss. Eyes: yes glasses, no blurred vision, no visual loss. ENMT: no dentures, no hoarseness, no swallowing difficulties, no hearing loss, no ear infection(s),no nose bleeds. Cardiovascular: normal blood pressure, no [...] Recorded SARS-CoV-2 (COVID-19) mRNA BNT-162b2 vax 02/03/2021 RecordedNoWhite HospitalComment on above:Result Comment: Electronically Signed By: HOLLAND WAGGONER, Adair Castellanos\Date and Time Signed: 11/25/22 14:37 ESTReminderson 11-18-2022 Reminders From: Noa Jacobs LPN To: N - Clinical; Sent: 08/24/2022 09:18:11 EDT Show up: 11/17/2022 07:00:00 EST Subject: colonoscopy recall Due Date/Time: 11/24/2022 07:00:00 EST Reminder/Recall Patient is due for colonoscopy 11/2022 (if blood thinner has been discontinued). Has appointment to discuss. future appointmentFuture Appointments Manny Appt. Date: 11/25/2022 2:20 PM Scheduled Provider: Adair Lino MD [facility], [address] [facility] [address] [place], [address] [facility] HospitalUS CARO DOP LEG LTon 68-75-7345DL CARO DOP LEG LTEXAMINATION: US CARO DOP LEG LT HISTORY: Thromboembolism [...] Electronically authenticated by: CAROLINE CORLEY Date: 2022-11-12 16:15NormalThe Doctors HospitalConsultation Noteon 11-95-5777Xueujbtsbgdh Note [id number]#1.00CD:127[facility] HospitalFacesheeton 77-16-5535Lsrktngmu [id number]#1.00CD:127DanaeWhite HospitalUS CARO DOP LEG LTon 75-47-0200DP CARO DOP LEG LTEXAMINATION: US CARO DOP LEG LT HISTORY: Pain [...] Electronically authenticated by: CAROLINE CORLEY Date: 2022-08-20 10:23NoGlenbeigh HospitalPhysician Referralon 15-85-5592Qpcgnxral Referral [id number]:127[facility] HospitalGI PANEL (PCR)on 54-90-3491Pbpjplsnmp F 40/41Not detectedNormalNOT DETECTEDThe Doctors HospitalComment on above:Performed By: #### CBCMAN #### [facility] [address] [address] [address] Yvette WilcoxAstrovirusNot detectedNormalNOT DETECTEDThe Doctors Hospital Comment on above:Performed By: #### CBCMAN #### [facility] [address] [address] [address] Yvette Montelongo. Diff toxin A/BNot detectedNormalNOT DETECTEDThe Doctors HospitalComment on above:Performed By: #### CBCCATHIE #### [facility] [address] [address] [address] Yvette StephenpylobacterNot detectedNormalNOT DETECTEDThe [facility] Comment on above:Performed By: #### CBCMAN #### [facility] [address] [address] [address] Yvette WilcoxCryptosporidiumNot detectedNormalNOT DETECTEDThe Doctors HospitalComment on above:Performed By: #### CBCMAN #### [facility] [address] [address] [address] Yvette Combsos. CayetanensisNot detectedNormalNOT DETECTEDThe Doctors HospitalComascension [facility] on above:Performed By: #### CBCMAN #### [facility] [address] [address] [address] Yvette Samson Coli P481Enw ApplicableNormalNot ApplicableThe Doctors HospitalComment on above:Performed By: #### MONIKA #### [facility] [address] [address] [address] Yvette Botello. histolyticaNot detectedNormalNOT DETECTEDThe [facility] Comment on above:Performed By: #### MONIKA #### [facility] [address] [address] [address] Yvette BotelloAECNot detectedNormalNOT DETECTEDThe Doctors HospitalComascension [facility] on above:Performed By: #### MONIKA #### [facility] [address] [address] [address] Yvette BotelloIECNot detectedNormalNOT DETECTEDThe Doctors HospitalComment on above:Performed By: #### CBCCATHIE #### [facility] [address] [address] [address] Yvette BotelloPECNot detectedNormalNOT DETECTEDThe Doctors HospitalComascension [facility] on above:Performed By: #### CBCMAN #### [facility] [address] [address] [address] Yvette BotelloTECNot detectedNormalNOT DETECTEDThe Doctors HospitalComment on above:Performed By: #### CBCCATHIE #### [facility] [address] [address] [address] Yvette Horta LambliaNot detectedNormalNOT DETECTEDBarberton Citizens Hospital Comment on above:Performed By: #### MONIKA #### [facility] [address] [address] [address] Yvette Gale CONTROLSPASSCleveland Clinic Akron GeneralComment on above:Performed By: #### MONIKA #### [facility] [address] [address] [address] Yvette Nicole [facility] HEADERGI PANEL [facility] Comment on above:Performed By: #### MONIKA #### [facility] [address] [address] [address] Yvette Medina ECOLIGI PANEL DIARRHEAGENIC E.COLI / SHIGELLAGenesis HospitalComment on above:Performed By: #### MONIKA #### [facility] [address] [address] [address] Yvette Medina INFOSEE [facility] Medical CenterComment on above: Result Comment: EAEC- Enteroaggregative E. Coli EPEC- Enteropathogenic E. Coli ETEC- Enterotoxigenic E. Coli lt/st STEC- Shigella-like toxin-producing E. Coli stx1/stx2 EIEC- Shigella/Enteroinvasive E. ColiPerformed By: #### MONIKA #### [facility] [address] [address] [address] Yvette Medina PARASITESGI [facility] PARASITESGenesis Hospital Comment on above:Performed By: #### MONIKA #### [facility] [address] [address] [address] Yvette Medina VIRUSGI PANEL VIRUSESGenesis HospitalComment on above:Performed By: #### MONIKA #### [facility] [address] [address] [address] Yvette Kilpatrickvirus GI/GIINot detectedNormalNOT DETECTEDThe [facility] HospitalComment on above:Performed By: #### CBCCATHIE #### [facility] [address] [address] [address] Yvette Harkins ShigelloidesNot detectedNormalNOT DETECTEDThe Doctors HospitalComment on above:Performed By: #### CBCCATHIE #### [facility] [address] [address] [address] Yvette WilcoxRotavirus ANot detectedNormalNOT DETECTEDThe [facility] Comment on above:Performed By: #### MONIKA #### [facility] [address] [address] [address] Yvette WilcoxSalmonellaNot detectedNormalNOT DETECTEDThe [facility] Comment on above:Performed By: #### MONIKA #### [facility] [address] [address] [address] Yvette WilcoxSapovirusNot detectedNormalNOT DETECTEDThe [facility] Comment on above:Performed By: #### MONIKA #### [facility] [address] [address] [address] Yvette WilcoxSTECNot detectedNormalNOT DETECTEDThe Doctors HospitalComment on above:Performed By: #### MONIKA #### [facility] [address] [address] [address] Yvette ContrerasbrioNot detectedNormalNOT DETECTEDThe Doctors HospitalComment on above:Performed By: #### MONIKA #### [facility] [address] [address] [address] Yvette Curtisio CholeraNot detectedNormalNOT DETECTEDThe [facility] Comment on above:Performed By: #### MONIKA #### [facility] [address] [address] [address] Yvette Meyers. EnterocoliticaNot detectedNormalNOT DETECTEDThe Doctors HospitalComment on above:Performed By: #### CBCCATHIE #### [facility] [address] [address] [address] Yvette Rios AUTO DIFFon 09-25-7651NUSN #0.0 103/ulNormal0.0-0.1The [facility]ian HospitalComment on above:Performed By: #### CBC #### [facility] [address] [place] [address] Dr. Yvette WilcoxBasophils/100 WBC (Bld)0.1 %Critically low0.2-2.0The Doctors HospitalComment on above:Performed By: #### CBC #### [facility] [address] [place] [address] Dr. Yvette Lagunas #0.0 103/ulNormal0.0-0.7The Doctors HospitalComment on above: Performed By: #### CBC #### [facility] [address] [place] [address] Dr. Yvette Botelloosinophils/100 WBC (Bld)0.0 %Critically low0.9-7.0The Doctors HospitalComment on above:Performed By: #### CBC #### [facility] [address] [place] [address] Dr. Yvette Botellorythrocyte distribution width (RBC) [Ratio]13.2 %Lcxcnq38.0-15.0 [facility] HospitalComment on above:Performed By: #### CBC #### [facility] [address] [place] [address] Dr. Yvette Kwanatocrit (Bld) [Volume fraction]33.1 %Critically low36.0-48.0 [facility] HospitalComment on above:Performed By: #### CBC #### [facility] [address] [place] [address] Dr. Yvette WilcoxHemoglobin (Bld) [Mass/Vol]10.9 g/dLCritically low12.0-16.0The Doctors HospitalComment on above:Performed By: #### CBC #### [facility] [address] [place] [address] Dr. Yvette Cruz #0.16 10e3/ulCritically high0.00-0.03[facility] on above:Performed By: #### CBC #### [facility] [address] [place] [address] Dr. Yvette Cruz %1.0 %Critically high0.0-0.5The Doctors HospitalComment on above:Performed By: #### CBC #### [facility] [address] [place] [address] Dr. Yvette Owens #1.1 103/ulCritically low1.2-3.8[facility] Comment on above:Performed By: #### CBC #### [facility] [address] [place] [address] Dr. Yvette Irvinghocytes/100 WBC (Bld)7.3 %Critically low20.5-60.0The Doctors HospitalComment on above:Performed By: #### CBC #### [facility] [address] [place] [address] Dr. Yvette Stoddard DIFF REQNONormalThe Doctors HospitalComment on above: Performed By: #### CBC #### [facility] [address] [place] [address] Dr. Yvette Dent (RBC) [Entitic mass]28.8 eeUmijwu59.7-34.0The Doctors HospitalComment on above:Performed By: #### CBC #### [facility] [address] [place] [address] Dr. Yvette Dent (RBC) [Mass/Vol]32.9 g/xVRlyvgx01.9-35.2The Doctors HospitalComment on above:Performed By: #### CBC #### [facility] [address] [place] [address] Dr. Yvette Dent (RBC) [Entitic vol]87.6 sLCpagud18.0-99.0The Doctors HospitalComment on above:Performed By: #### CBC #### [facility] [address] [place] [address] Dr. Yvette Stephenson #0.8 103/ulNormal0.3-0.8The Doctors HospitalComment on above:Performed By: #### CBC #### [facility] [address] [place] [address] Dr. Yilan ChangMonocytes/100 WBC (Bld)5.3 %Normal1.7-12.0[facility] Comment on above:Performed By: #### CBC #### [facility] [address] [place] [address] Dr. Yvette Linares #13.3 103/ulCritically high1.4-6.5ThUniversity [facility] Comment on above:Performed By: #### CBC #### [facility] [address] [place] [address] Dr. Yvette Pennutrophils/100 WBC (Bld)86.3 %Critically high43.0-75.0The Doctors HospitalComment on above:Performed By: #### CBC #### [facility] [address] [place] [address] Dr. Yvette Patellet mean volume (Bld) [Entitic vol]10.5 fLNormal9.5-13.5The Doctors HospitalComment on above:Performed By: #### CBC #### [facility] [address] [place] [address] Dr. Yvette WilcoxPLT285 103/abGedhqb829-723Stn Doctors HospitalComment on above: Performed By: #### CBC #### [facility] [address] [place] [address] Dr. Yvette WilcoxRBC3.78 106/ulCritically low4.20-5.40The Doctors HospitalComment on above:Performed By: #### CBC #### [facility] [address] [place] [address] Dr. Yvette WilcoxWBC15.4 103/ulCritically high4.0-11.0The Doctors HospitalComment on above:Performed By: #### CBC #### [facility] [address] [place] [address] Dr. Yvette Riddle [id number] mg/dLCritically high<=1.0The Doctors HospitalComment on above:Performed By: #### CBCMAN #### [facility] [address] [place] [address] Dr. Yvette EscalanteF 14(COMP METB)on [id number] [Mass/Vol]2.5 g/dL Critically low3.4-5.0The Doctors HospitalComment on above:Performed By: #### MONIKA #### [facility] [address] [address] [address] Yvette WilcoxAlbumin/Globulin [Mass ratio]0.8 {ratio}NormalThe Doctors HospitalComment on above:Performed By: #### MONIKA #### [facility] [address] [address] [address] Yvette GudinoP [Catalytic activity/Vol]61 U/VIgwgsj17-846Fxu Doctors HospitalComment on above:Performed By: #### MONIKA #### [facility] [address] [place] [address] Dr. Yvette GudinoT [Catalytic activity/Vol]35 U/FUvkyxy36-27Vkv Doctors HospitalComment on above:Performed By: #### MONIKA #### [facility] [address] [address] [address] Yvette Sapp gap [Moles/Vol]10.9 mmol/LNormalThe [facility] Comment on above:Performed By: #### MONIKA #### [facility] [address] [place] [address] Dr. Yvette WilcoxAST [Catalytic activity/Vol]19 U/CEqjfwz47-83Nlb Doctors HospitalComment on above:Performed By: #### CBCCATHIE #### [facility] [address] [address] [address] Yvette WilcoxBilirubin [Mass/Vol]0.2 mg/dLNormal0.2-1.0[facility] Comment on above:Performed By: #### CBCCATHIE #### [facility] [address] [address] [address] Yvette WilcoxCalcium [Mass/Vol]8.1 mg/dLCritically low8.5-10.1The Doctors HospitalComment on above:Performed By: #### CBCCATHIE #### [facility] [address] [address] [address] Yvette WilcoxChloride [Moles/Vol]110 mmol/LCritically lmzt17-594Hnl Doctors HospitalComment on above:Performed By: #### MONIKA #### [facility] [address] [address] [address] Yvette WilcoxCO2 [Moles/Vol]24.5 mmol/FBhkujj34.0-32.0[facility] Comment on above:Performed By: #### CBCCATHIE #### [facility] [address] [address] [address] Yvette WilcoxCreatinine [Mass/Vol]0.90 mg/dLNormal0.55-1.02The Doctors HospitalComment on above:Performed By: #### MONIKA #### [facility] [address] [address] [address] Crawford ChangEGFR-AF ARMENIAN>60Normal>=60The Doctors HospitalComment on above:Performed By: #### CBCCATHIE #### [facility] [address] [address] [address] Yvette BotelloGFR-NON AF ARMENIAN>60Normal>=60The Doctors HospitalComment on above:Performed By: #### CBCCATHIE #### [facility] [address] [address] [address] Yvette WilcoxGlobulin (S) [Mass/Vol]3.2 g/dLNormalThe Doctors HospitalComment on above:Performed By: #### CBCCATHIE #### [facility] [address] [address] [address] Yvette WilcoxGlucose [Mass/Vol]185 mg/dLCritically newz98-755Azn [facility] Centerment on above:Performed By: #### CBCCATHIE #### [facility] [address] [address] [address] Yvette WilcoxPotassium [Moles/Vol]3.4 mmol/LCritically low3.5-5.1The Doctors HospitalComment on above:Performed By: #### CBCCATHIE #### [facility] [address] [address] [address] Yvette WilcoxProtein [Mass/Vol]5.7 g/dLCritically low6.4-8.2The Doctors HospitalComment on above:Performed By: #### CBCCATHIE #### [facility] [address] [place] [address] Dr. Yvette Drummonddium [Moles/Vol]142 mmol/MUtughw359-560Utl [facility] Comment on above:Performed By: #### CBCCATHIE #### [facility] [address] [place] [address] Dr. Yvette WilcoxUrea nitrogen [Mass/Vol]9.0 mg/dLNormal7.0-18.0The Doctors HospitalComment on above:Performed By: #### CBCCATHIE #### [facility] [address] [place] [address] Dr. Yvette WilcoxUrea nitrogen/Creatinine [Mass ratio]10.0 mg/mgNormalThe Doctors HospitalComment on above:Performed By: #### CBCCATHIE #### [facility] [address] [place] [address] Dr. Yvette Rios AUTO DIFFon [id number] #0.1 103/ulNormal0.0-0.1The Doctors HospitalComment on above:Performed By: #### CBCCATHIE #### [facility] [address] [place] [address] Dr. Yvette WilcoxBasophils/100 WBC (Bld)0.3 %Normal0.2-2.0[facility] Comment on above:Performed By: #### CBCCATHIE #### [facility] [address] [place] [address] Dr. Yvette Lagunas #0.0 103/ulNormal0.0-0.7The Doctors HospitalComment on above: Performed By: #### CBCMAN #### [facility] [address] [place] [address] Dr. Yvette Botelloosinophils/100 WBC (Bld)0.2 %Critically low0.9-7.0The Doctors HospitalComment on above:Performed By: #### CBCCATHIE #### [facility] [address] [place] [address] Dr. Yvette Botellorythrocyte distribution width (RBC) [Ratio]13.3 %Wliyxk09.0-15.0 [facility] Hospitalment on above:Performed By: #### CBCCATHIE #### [facility] [address] [place] [address] Dr. Yvette WilcoxHematocrit (Bld) [Volume fraction]34.8 %Critically low36.0-48.0 [facility] HospitalComment on above:Performed By: #### MONIKA #### [facility] [address] [place] [address] Dr. Yvette WilcoxHemoglobin (Bld) [Mass/Vol]11.6 g/dLCritically low12.0-16.0The Doctors HospitalComment on above:Performed By: #### MONIKA #### [facility] [address] [place] [address] Dr. Yvette Cruz #0.08 10e3/ulCritically high0.00-0.03[facility] Comment on above:Performed By: #### MONIKA #### [facility] [address] [place] [address] Dr. Yvette Cruz %0.5 %Normal0.0-0.5The [facility] on above: Performed By: #### MONIKA #### [facility] [address] [place] [address] Dr. Yvette Owens #2.1 103/ulNormal1.2-3.8The [facility] Centerment on above:Performed By: #### CBCCATHIE #### [facility] [address] [place] [address] Dr. Yvette Irvinghocytes/100 WBC (Bld)13.1 %Critically low20.5-60.0[facility] Hospitalment on above:Performed By: #### CBCCATHIE #### [facility] [address] [place] [address] Dr. Yvette ZunigaUAL DIFF REQNONormalThe Doctors HospitalComment on above: Performed By: #### MONIKA #### [facility] [address] [address] [address] Yvette Dent (RBC) [Entitic mass]29.4 riDztmza15.7-34.0The Doctors HospitalComment on above:Performed By: #### MONIKA #### [facility] [address] [place] [address] Dr. Yvette Dent (RBC) [Mass/Vol]33.3 g/eGApddxl40.9-35.2The Doctors HospitalComment on above:Performed By: #### MONIKA #### [facility] [address] [place] [address] Dr. Yvette Delaney (RBC) [Entitic vol]88.1 tNLdwopb16.0-99.0[facility] HospitalComment on above:Performed By: #### MONIKA #### [facility] [address] [place] [address] Dr. Yvette Stephenson #1.4 103/ulCritically high0.3-0.8ThUniversity [facility]als [facility] Comment on above:Performed By: #### MONIKA #### [facility] [address] [place] [address] Dr. Yvette Bustamanteocytes/100 WBC (Bld)8.7 %Normal1.7-12.0[facility] Comment on above:Performed By: #### MONIKA #### [facility] [address] [place] [address] Dr. Yvette Linares #12.3 103/ulCritically high1.4-6.5ThUniversity [facility]als [facility] Comment on above:Performed By: #### MONIKA #### [facility] [address] [place] [address] Dr. Yvette Ansariophils/100 WBC (Bld)77.2 %Critically high43.0-75.0[facility] HospitalComment on above:Performed By: #### MONIKA #### [facility] [address] [place] [address] Dr. Yvette Alexander mean volume (Bld) [Entitic vol]10.3 fLNormal9.5-13.5The Doctors HospitalComment on above:Performed By: #### MONIKA #### [facility] [address] [address] [address] Yvette WilcoxPLT254 103/fwGjqhoj871-461Qez [facility] on above: Performed By: #### MONIKA #### [facility] [address] [address] [address] Yvette WilcoxRBC3.95 106/ulCritically low4.20-5.40The Doctors HospitalComment on above:Performed By: #### MONIKA #### [facility] [address] [place] [address] Dr. Yvette WilcoxWBC15.9 103/ulCritically high4.0-11.0The [facility] on above:Performed By: #### CBCCATHIE #### [facility] [address] [place] [address] Dr. Yvette Riddle [id number] mg/dLCritically high<=1.0The [facility] on above:Performed By: #### MONIKA #### [facility] [address] [place] [address] Dr. Yvette WilcoxPROF 14(COMP METB)on [id number] [Mass/Vol]2.7 g/dL Critically low3.4-5.0The [facility] HospitalComasc[facility] on above:Performed By: #### INSULIN #### [facility] [address] [address] [address] Yvette WilcoxAlbumin/Globulin [Mass ratio]0.8 {ratio}NormalThe [facility] on above:Performed By: #### INSULIN #### [facility] [address] [address] [address] Yvette Keys [Catalytic activity/Vol]46 U/OKrceld96-311Vod [facility] HospitalComasc[facility] on above:Performed By: #### INSULIN #### [facility] [address] [address] [address] Yvette GudinoT [Catalytic activity/Vol]25 U/NVsmzrw60-81Ewt Doctors HospitalComment on above:Performed By: #### INSULIN #### [facility] [address] [address] [address] Yvette WilcoxAnion gap [Moles/Vol]7.7 mmol/LNormalThe Doctors HospitalComment on above:Performed By: #### INSULIN #### [facility] [address] [address] [address] Yvette WilcoxAST [Catalytic activity/Vol]12 U/LCritically xkv19-09Yuf Doctors HospitalComment on above:Performed By: #### INSULIN #### [facility] [address] [address] [address] Yvette WilcoxBilirubin [Mass/Vol]0.4 mg/dLNormal0.2-1.0[facility] Comment on above:Performed By: #### INSULIN #### [facility] [address] [address] [address] Yvette WilcoxCalcium [Mass/Vol]8.0 mg/dLCritically low8.5-10.1The [facility] HospitalComment on above:Performed By: #### INSULIN #### [facility] [address] [address] [address] Yvette WilcoxChloride [Moles/Vol]107 mmol/UQfpkhb39-907Ddg [facility] Comment on above:Performed By: #### INSULIN #### [facility] [address] [address] [address] Yvette WilcoxCO2 [Moles/Vol]27.4 mmol/POrqtal44.0-32.0[facility] Comment on above:Performed By: #### INSULIN #### [facility] [address] [address] [address] Yvette WilcoxCreatinine [Mass/Vol]1.05 mg/dLCritically high0.55-1.02The Doctors HospitalComment on above:Performed By: #### INSULIN #### [facility] [address] [address] [address] Yvette BotelloGFR-AF ARMENIAN>60Normal>=60The Doctors HospitalComment on above:Performed By: #### INSULIN #### [facility] [address] [address] [address] Yvette BotelloGFR-NON AF ALBKOKGY50 mL/min/1.88b9Dkddslnxxe low>=60The Doctors HospitalComment on above:Performed By: #### INSULIN #### [facility] [address] [address] [address] Yvette WilcoxGlobulin (S) [Mass/Vol]3.3 g/dLNormalThe Doctors HospitalComment on above:Performed By: #### INSULIN #### [facility] [address] [address] [address] Yvette WilcoxGlucose [Mass/Vol]146 mg/dLCritically wucz83-186Zdt [facility] HospitalComment on above:Performed By: #### INSULIN #### [facility] [address] [address] [address] Yvette WilcoxPotassium [Moles/Vol]3.1 mmol/LCritically low3.5-5.1The [facility] HospitalComment on above:Performed By: #### INSULIN #### [facility] [address] [address] [address] Yvette WilcoxProtein [Mass/Vol]6.0 g/dLCritically low6.4-8.2The [facility] HospitalComment on above:Performed By: #### INSULIN #### [facility] [address] [address] [address] Yvette WilcoxSodium [Moles/Vol]139 mmol/PXjomfn837-982Tmb [facility] Comment on above:Performed By: #### INSULIN #### [facility] [address] [address] [address] Yvette WilcoxUrea nitrogen [Mass/Vol]5.0 mg/dLCritically low7.0-18.0The [facility] HospitalComment on above:Performed By: #### INSULIN #### [facility] [address] [address] [address] Yvette WilcoxUrea nitrogen/Creatinine [Mass ratio]4.8 mg/mgNormalThe Doctors HospitalComment on above:Performed By: #### INSULIN #### [facility] [address] [address] [address] Yvette LockeC AUTO DIFFon [id number] #0.1 103/ulNormal0.0-0.1The Doctors HospitalComment on above:Performed By: #### INSULIN #### [facility] [address] [address] [address] Yvette WilcoxBasophils/100 WBC (Bld)0.3 %Normal0.2-2.0[facility] Comment on above:Performed By: #### INSULIN #### [facility] [address] [place] [address] Dr. Crawford ChangEO #0.0 103/ulNormal0.0-0.7The Doctors HospitalComment on above: Performed By: #### INSULIN #### [facility] [address] [place] [address] Dr. Yvette Botelloosinophils/100 WBC (Bld)0.2 %Critically low0.9-7.0The Doctors HospitalComment on above:Performed By: #### INSULIN #### [facility] [address] [place] [address] Dr. Yvette Botellorythrocyte distribution width (RBC) [Ratio]13.3 %Zdjpup76.0-15.0 The Doctors HospitalComment on above:Performed By: #### INSULIN #### [facility] [address] [place] [address] Dr. Yvette WilcoxHematocrit (Bld) [Volume fraction]36.5 %Hbofqq60.0-48.0The Doctors HospitalComment on above:Performed By: #### INSULIN #### [facility] [address] [place] [address] Dr. Yvette WilcoxHemoglobin (Bld) [Mass/Vol]12.3 g/mSZpwqnu98.0-16.0The [facility] HospitalComment on above:Performed By: #### INSULIN #### [facility] [address] [address] [address] Yvette Cruz #0.05 10e3/ulCritically high0.00-0.03[facility] Comment on above:Performed By: #### INSULIN #### [facility] [address] [address] [address] Yvette Cruz %0.3 %Normal0.0-0.5The [facility] HospitalComment on above: Performed By: #### INSULIN #### [facility] [address] [address] [address] Yvette Owens #1.8 103/ulNormal1.2-3.8The Doctors HospitalComment on above:Performed By: #### INSULIN #### [facility] [address] [address] [address] Yvette Irvinghocytes/100 WBC (Bld)11.8 %Critically low20.5-60.0The [facility] HospitalComment on above:Performed By: #### INSULIN #### [facility] [address] [address] [address] Yvette ZunigaUAL DIFF REQNONormalThe Doctors HospitalComment on above: Performed By: #### INSULIN #### [facility] [address] [address] [address] Yvette Dent (RBC) [Entitic mass]29.4 yzNdqfap29.7-34.0The Doctors HospitalComment on above:Performed By: #### INSULIN #### [facility] [address] [place] [address] Dr. Yvette Dent (RBC) [Mass/Vol]33.7 g/lVOqsvjy26.9-35.2The Doctors HospitalComment on above:Performed By: #### INSULIN #### [facility] [address] [place] [address] Dr. Yvette Dent (RBC) [Entitic vol]87.3 yAAesrim73.0-99.0The Doctors HospitalComment on above:Performed By: #### INSULIN #### [facility] [address] [address] [address] Yvette Stephenson #1.3 103/ulCritically high0.3-0.8ThUniversity [facility] Comment on above:Performed By: #### INSULIN #### [facility] [address] [address] [address] Yvette Bustamanteocytes/100 WBC (Bld)8.1 %Normal1.7-12.0[facility] Comment on above:Performed By: #### INSULIN #### [facility] [address] [address] [address] Yvette Linares #12.3 103/ulCritically high1.4-6.5ThUniversity [facility]als [facility] Comment on above:Performed By: #### INSULIN #### [facility] [address] [address] [address] Yvette Pennutrophils/100 WBC (Bld)79.3 %Critically high43.0-75.0The Doctors HospitalComment on above:Performed By: #### INSULIN #### [facility] [address] [address] [address] Yvette Alexander mean volume (Bld) [Entitic vol]9.8 fLNormal9.5-13.5ThUniversity Hospitals Geauga Medical CenterComment on above:Performed By: #### INSULIN #### [facility] [address] [place] [address] Dr. Yvette WilcoxPLT263 103/lwQaxsrt842-495Zul Doctors HospitalComment on above: Performed By: #### INSULIN #### [facility] [address] [address] [address] Yvette WilcoxRBC4.18 106/ulCritically low4.20-5.40The Doctors HospitalComment on above:Performed By: #### INSULIN #### [facility] [address] [address] [address] Yvette WilcoxWBC15.5 103/ulCritically high4.0-11.0The Doctors HospitalComment on above:Performed By: #### INSULIN #### [facility] [address] [place] [address] Dr. Yvette Gardner #0.0 103/ulNormal0.0-0.1The Doctors HospitalComment on above:Performed By: #### CBC #### [facility] [address] [place] [address] Dr. Yvette WilcoxBasophils/100 WBC (Bld)0.2 %Normal0.2-2.0[facility] Comment on above:Performed By: #### CBC #### [facility] [address] [place] [address] Dr. Yvette Lagunas #0.0 103/ulNormal0.0-0.7The Doctors HospitalComment on above: Performed By: #### CBC #### [facility] [address] [place] [address] Dr. Yvette Botelloosinophils/100 WBC (Bld)0.1 %Critically low0.9-7.0The Doctors HospitalComment on above:Performed By: #### CBC #### [facility] [address] [place] [address] Dr. Yvette Botellorythrocyte distribution width (RBC) [Ratio]13.3 %Itwdqt08.0-15.0 The Doctors HospitalComment on above:Performed By: #### CBC #### [facility] [address] [place] [address] Dr. Yvette WilcoxHematocrit (Bld) [Volume fraction]37.9 %Vesqxu55.0-48.0The Doctors HospitalComment on above:Performed By: #### CBC #### [facility] [address] [place] [address] Dr. Yvette WilcoxHemoglobin (Bld) [Mass/Vol]12.7 g/iJXrnozn68.0-16.0The Doctors HospitalComment on above:Performed By: #### CBC #### [facility] [address] [place] [address] Dr. Yvette Cruz #0.07 10e3/ulCritically high0.00-0.03[facility] Comment on above:Performed By: #### CBC #### [facility] [address] [place] [address] Dr. Yvette Cruz %0.5 %Normal0.0-0.5The Doctors HospitalComment on above: Performed By: #### CBC #### [facility] [address] [place] [address] Dr. Yvette Owens #1.7 103/ulNormal1.2-3.8The [facility] HospitalComment on above:Performed By: #### CBC #### [facility] [address] [place] [address] Dr. Yvette Irvinghocytes/100 WBC (Bld)11.1 %Critically low20.5-60.0The Doctors HospitalComment on above:Performed By: #### CBC #### [facility] [address] [place] [address] Dr. Yvette Stoddard DIFF REQNONormalThe Doctors HospitalComment on above: Performed By: #### CBC #### [facility] [address] [place] [address] Dr. Yvette Salas (RBC) [Entitic mass]29.3 qyGfimqm74.7-34.0The Doctors HospitalComment on above:Performed By: #### CBC #### [facility] [address] [place] [address] Dr. Yvette Dent (RBC) [Mass/Vol]33.5 g/sACdwdtf73.9-35.2The Doctors HospitalComment on above:Performed By: #### CBC #### [facility] [address] [place] [address] Dr. Yvette Delaney (RBC) [Entitic vol]87.5 bEBxftll11.0-99.0The [facility] HospitalComment on above:Performed By: #### CBC #### [facility] [address] [place] [address] Dr. Yvette Stephenson #1.4 103/ulCritically high0.3-0.8[facility] Comment on above:Performed By: #### CBC #### [facility] [address] [place] [address] Dr. Yvette Bustamanteocytes/100 WBC (Bld)8.9 %Normal1.7-12.0[facility] Comment on above:Performed By: #### CBC #### [facility] [address] [place] [address] Dr. Yvette Linares #12.1 103/ulCritically high1.4-6.5[facility] Comment on above:Performed By: #### CBC #### [facility] [address] [place] [address] Dr. Yvette Pennutrophils/100 WBC (Bld)79.2 %Critically high43.0-75.0The [facility] HospitalComment on above:Performed By: #### CBC #### [facility] [address] [place] [address] Dr. Yvette WilcoxPlatelet mean volume (Bld) [Entitic vol]10.0 fLNormal9.5-13.5The [facility] HospitalComment on above:Performed By: #### CBC #### [facility] [address] [place] [address] Dr. Yvette WilcoxPLT268 103/srHqiunw692-179Tvo [facility] HospitalComment on above: Performed By: #### CBC #### [facility] [address] [place] [address] Dr. Yvette WilcoxRBC4.33 106/ulNormal4.20-5.40The [facility] HospitalComment on above:Performed By: #### CBC #### [facility] [address] [place] [address] Dr. Yvette WilcoxWBC15.3 103/ulCritically high4.0-11.0The [facility] HospitalComment on above:Performed By: #### CBC #### [facility] [address] [place] [address] Dr. Yvette WilcoxHEMOGLOBIN AND HEMATOCRITon 88-78-2521Fnhavfelcj (Bld) [Volume fraction]38.9 %Iwibqw56.0-48.0The [facility] HospitalComment on above:Performed By: #### CVDTBH #### [facility] [address] [place] [address] Dr. Yvette WilcoxHemoglobin (Bld) [Mass/Vol]13.0 g/aJWsypoj28.0-16.0The [facility] HospitalComment on above:Performed By: #### CVDTBH #### [facility] [address] [place] [address] Dr. Yvette WilcoxHematocrit (Bld) [Volume fraction]38.1 %Itzkuz73.0-48.0The Doctors HospitalComment on above:Performed By: #### HGBHCT #### [facility] [address] [place] [address] Dr. Yvette WilcoxHemoglobin (Bld) [Mass/Vol]12.9 g/nLQwrrvz97.0-16.0The Doctors HospitalComment on above:Performed By: #### HGBHCT #### [facility] [address] [place] [address] Dr. Yvette WilcoxPROF CHEM 8 (BAS METB)on [id number] gap [Moles/Vol]10.3 mmol/LNormalThe Doctors HospitalComment on above:Performed By: #### CBCMAN #### [facility] [address] [place] [address] Dr. Yvette WilcoxCalcium [Mass/Vol]8.4 mg/dLCritically low8.5-10.1The Doctors HospitalComment on above:Performed By: #### CBCMAN #### [facility] [address] [place] [address] Dr. Yvette WilcoxChloride [Moles/Vol]108 mmol/LCritically hepx18-949Vdv Doctors HospitalComment on above:Performed By: #### CBCMAN #### [facility] [address] [place] [address] Dr. Yvette WilcoxCO2 [Moles/Vol]25.0 mmol/XMtqizo12.0-32.0[facility] Comment on above:Performed By: #### CBCCATHIE #### [facility] [address] [place] [address] Dr. Yvette WilcoxCreatinine [Mass/Vol]0.91 mg/dLNormal0.55-1.02The Doctors HospitalComment on above:Performed By: #### CBCCATHIE #### [facility] [address] [address] [address] Yvette BotelloGFR-AF ARMENIAN>60Normal>=60The Doctors HospitalComment on above:Performed By: #### CBCCATHIE #### [facility] [address] [place] [address] Dr. Yvette BotelloGFR-NON AF ARMENIAN>60Normal>=60The Doctors HospitalComment on above:Performed By: #### CBCCATHIE #### [facility] [address] [place] [address] Dr. Yvette WilcoxGlucose [Mass/Vol]164 mg/dLCritically yxxt31-169Unm Doctors HospitalComment on above:Performed By: #### CBCCATHIE #### [facility] [address] [place] [address] Dr. Yvette WilcoxPotassium [Moles/Vol]3.3 mmol/LCritically low3.5-5.1The Doctors HospitalComment on above:Performed By: #### CBCCATHIE #### [facility] [address] [place] [address] Dr. Yvette WilcoxSodium [Moles/Vol]140 mmol/NJdxbbp229-811Nwi [facility] Comment on above:Performed By: #### CBCCATHIE #### [facility] [address] [place] [address] Dr. Yvette WilcoxUrea nitrogen [Mass/Vol]7.0 mg/dLNormal7.0-18.0The Doctors HospitalComment on above:Performed By: #### CBCCATHIE #### [facility] [address] [place] [address] Dr. Yvette Valente nitrogen/Creatinine [Mass ratio]7.7 mg/mgNoGlenbeigh HospitalComment on above:Performed By: #### MONIKA #### [facility] [address] [place] [address] Dr. Yvette WilcoxPROTIMEon [id number] Coag (PPP) [Relative time]1.02 {INR} NormalBarberton Citizens HospitalComment on above:Performed By: #### CVDTBH #### [facility] [address] [place] [address] Dr. Yvette Ruiz GUIDELINESSEE BELOWGenesis HospitalComment on above:Result Comment: DESIRED INR: 2.0 - 3.0 CONDITIONS NOT LISTED BELOW 2.5 - 3.5 FOR PROSTHETIC HEART VALVE REPLACEMENT 2.5 - 3.5 RECURRENT THROMBOSIS Performed By: #### GUILLERMINATBH #### [facility] [address] [place] [address] Dr. Yvette Harrington Coag (PPP) [Time]11.0 sNormal9.0-11.6ThUniversity Hospitals [facility] Comment on above:Performed By: #### GUILLERMINATBH #### [facility] [address] [place] [address] Dr. Yvette WilcoxAMYLASEon 14-60-7810Mbeymsy [Catalytic activity/Vol]39 U/LNormal 25-115Bar[facility]ton Citizens HospitalComascension [facility] on above:Performed By: #### GUILLERMINATBH #### [facility] [address] [place] [address] Dr. Yvette Rios W MANUAL DIFFon [id number] LYMPH #NormalBarberton Citizens HospitalComment on above:Performed By: #### MONIKA #### [facility] [address] [place] [address] Dr. Yvette WilcoxATYPICAL LYMPH %NormalBarberton Citizens HospitalComment on above: Performed By: #### MONIKA #### [facility] [address] [place] [address] Dr. Yvette Cabrera #Normal0.0-0.3The Doctors HospitalComment on above: Performed By: #### MONIKA #### [facility] [address] [address] [address] Yvette Cabrera %Normal0-5The [facility]oth[facility] HospitalComment on above:Performed By: #### MONIKA #### [facility] [address] [address] [address] Yvette Garcia #0.00 103/ulNormal0.00-0.10The [facility]othian HospitalComment on above:Performed By: #### CBCCATHIE #### [facility] [address] [address] [address] Yvette Garcia %0.0 %Critically low0.2-2.0The [facility] HospitalComment on above:Performed By: #### MONIKA #### [facility] [address] [place] [address] Dr. Yvette Johns #NormalThe [facility]othian HospitalComment on above:Performed By: #### MONIKA #### [facility] [address] [place] [address] Dr. Yvette Johns %NormalThe Doctors HospitalComment on above:Performed By: #### MONIKA #### [facility] [address] [place] [address] Dr. Yvette WilcoxCORRECTED WBCNormal4.0-11.0The Doctors HospitalComment on above: Performed By: #### MONIKA #### [facility] [address] [place] [address] Dr. Yvette Posada #0.00 103/ulNormal0.00-0.70The [facility]oth[facility] HospitalComment on above:Performed By: #### MONIKA #### [facility] [address] [place] [address] Dr. Yvette Posada%0.0 %Critically low0.9-7.0The Doctors HospitalComment on above:Performed By: #### CBCCATHIE #### [facility] [address] [place] [address] Dr. Yvette WilcoxHCT43.6 %Wfkxhu05.0-48.0The Doctors HospitalComment on above: Performed By: #### MONIKA #### [facility] [address] [address] [address] Yvette WilcoxHGB14.8 g/kvBtrycs05.0-16.0The Doctors HospitalComment on above: Performed By: #### CBCCATHIE #### [facility] [address] [address] [address] Yvette Flower #0.94 103/ulCritically low1.20-3.80[facility] Comment on above:Performed By: #### MONIKA #### [facility] [address] [address] [address] Yvette Flower%5.0 %Critically low20.5-60.0The Doctors HospitalComment on above:Performed By: #### MONIKA #### [facility] [address] [place] [address] Dr. Yvette WilcoxMCH29.1 wlDenrva85.7-34.0The Doctors HospitalComment on above: Performed By: #### MONIKA #### [facility] [address] [place] [address] Dr. Yvette WilcoxMCHC33.9 g/glJnrwzf29.9-35.2The Doctors HospitalComment on above:Performed By: #### MONIKA #### [facility] [address] [place] [address] Dr. Yvette WilcoxMCV85.8 nKUrbyjo56.0-99.0The Doctors HospitalComment on above: Performed By: #### CBCCATHIE #### [facility] [address] [place] [address] Dr. Yvette AlbrightOCYTE #NormalThe Doctors HospitalComment on above: Performed By: #### MONIKA #### [facility] [address] [place] [address] Dr. Yvette AlbrightOCYTE %NormalThe Doctors HospitalComment on above: Performed By: #### MONIKA #### [facility] [address] [place] [address] Dr. Yvette Omalley#1.13 103/ulCritically high0.30-0.80[facility] Comment on above:Performed By: #### MONIKA #### [facility] [address] [place] [address] Dr. Yvette Omalley%6.0 %Normal1.7-12.0The Doctors HospitalComment on above: Performed By: #### MONIKA #### [facility] [address] [place] [address] Dr. Yvette MaresV10.3 fLNormal9.5-13.5The Doctors HospitalComment on above: Performed By: #### MONIKA #### [facility] [address] [place] [address] Dr. Yvette Wilson #NormalThe Doctors HospitalComment on above:Performed By: #### MONIKA #### [facility] [address] [place] [address] Dr. Yvette VillagranOCYTE %NormalThe [facility]ian HospitalComment on above:Performed By: #### MONIKA #### [facility] [address] [place] [address] Dr. Yvette WilcoxNRBCNormalThe Doctors HospitalComment on above:Performed By: #### MONIKA #### [facility] [address] [place] [address] Dr. Yvette WilcoxPLT344 103/akGgnhek680-724Mze Doctors HospitalComment on above: Performed By: #### MONIKA #### [facility] [address] [place] [address] Dr. Yvette WilcoxRBC5.08 106/ulNormal4.20-5.40The Doctors HospitalComment on above:Performed By: #### MONIKA #### [facility] [address] [place] [address] Dr. Yvette WilcoxRDW13.1 %Uwmmwm81.0-15.0The Doctors HospitalComment on above: Performed By: #### MONIKA #### [facility] [address] [place] [address] Dr. Yvette Sheehan #16.73 103/ulCritically high1.40-6.50[facility] Comment on above:Performed By: #### MONIKA #### [facility] [address], [place] [address] Dr. Yvette Sheehan %89.0 %Critically high43.0-75.0The Doctors HospitalComment on above:Performed By: #### MONIKA #### [facility] [address], [place] [address] Dr[address] Yvette WilcoxWBC18.8 103/ulCritically high4.0-11.0The Doctors HospitalComment on above:Performed By: #### MONIKA #### [facility] [id number] Yvette WilcoxCT ABD/PELVIS WO CONon [id number] ABD/PELVIS WO CONEXAMINATION: CT ABD/PELVIS WO CON, 07/29/2022 5:54 PM [...] Electronically authenticated by: KENDELL GRIMM Date: 2022-07-29 19:07Genesis HospitalCovid-19 PCR (CVDTB)on [id number]-CoV-2 (COVID-19) RNA RANI+probe Ql (Unsp spec)Not detectedNormalNOT DETECTEDBarberton Citizens Hospital Comment on above:Result Comment: When diagnostic testing is negative, the [...] for this test is supported by the [place] of Health and Human Service's declaration that circumstances exist to justify the emergency use of in vitro diagnostics for the detection and/or diagnosis of the virus that causes COVID-19. This EUA will remain in effect for the duration of the COVID-19 declaration justifying emergency of IVDs, unless it is terminated or revoked by the FDA (after which the test may no longer be used).Performed By: #### CVDTB #### [facility] [address] [place] [address] Dr. Yvette Brooks URINE PROFILEon 58-91-1511Sopynlttu Ql (U)NegativeNormal NEGATIVEBarberton Citizens HospitalComment on above:Performed By: #### ALANNA SUGGSR #### [facility] [address] [place] [address] Dr. Yvette Cerna (U)CLEARNormalCLEARBarberton Citizens HospitalComment on above: Performed By: #### ALANNA SUGGSR #### [facility] [address] [place] [address] Dr. Yvette Palacios (U)LT. YELLOWNormalYELLOWBarberton Citizens HospitalComment on above:Performed By: #### ALANNA SUGGSR #### [facility] [address] [address] [address] Yvette Bassett micrscopic examination will be performed if indicated. NormalThe Doctors HospitalComment on above:Performed By: #### IFEANYI ERUR #### [facility] [address] [address] [address] Yvette WilcoxGlucose Ql (U)NegativeNormalNEGATIVEBarberton Citizens HospitalComment on above:Performed By: #### IFEANYI, ERUR #### [facility] [address] [address] [address] Yvette WilcoxHemoglobin Ql (U)NegativeNormalNEGATIVEGenesis Hospital on above:Performed By: #### IFEANYI ERUR #### [facility] [address] [place] [address] Dr. Yvette WilcoxKetones Ql (U)>=80AbnormalNEGATIVEBarberton Citizens HospitalComment on above:Performed By: #### IFEANYI ERUR #### [facility] [address] [address] [address] Yvette WilcoxLEUKOCYTESNegativeNormalNEGATIVEBarberton Citizens HospitalComment on above:Performed By: #### IFEANYI ERUR #### [facility] [address] [address] [address] Yvette WilcoxNitrite Ql (U)NegativeNormalNEGATIVEBarberton Citizens HospitalComment on above:Performed By: #### IFEANYI ERUR #### [facility] [address] [address] [address] Yvette WilcoxpH (U)6.0 [pH]Normal5-9The Doctors HospitalComment on above: Performed By: #### IFEANYI ERUR #### [facility] [address] [address] [address] Yvette WilcoxSPEC GRAVITY1.506Lqnygj9.005-<=1.025The Doctors HospitalComment on above:Performed By: #### IFEANYI ERUR #### [facility] [address] [place] [address] Dr. Yvette Ford PROTEINNegativeNormalNEGATIVE/ TRACEThe [facility] Comment on above:Performed By: #### GALO SUGGS #### [facility] [address] [place] [address] Dr. Yvette Beasley MICRO INDINDICATEDNormalThe Doctors HospitalComment on above: Performed By: #### GALO SUGGS #### [facility] [address] [place] [address] Dr. Yvette Carolinagen Qn (U)0.2 {Kami'U}/dLNormal0.2 - 1.0The Doctors HospitalComment on above:Performed By: #### GALO SUGGS #### [facility] [address] [place] [address] Dr. Yvette Sofia PANEL (PCR)on [id number] F 40/41Not detectedNormal NOT DETECTEDThe Doctors HospitalComment on above:Performed By: #### MONIKA #### [facility] [address] [place] [address] Dr. Yvette WilcoxAstrovirusNot detectedNormalNOT DETECTEDThe [facility] Comment on above:Performed By: #### MONIKA #### [facility] [address] [place] [address] Dr. Yvette Montelongo. Diff toxin A/BNot detectedNormalNOT DETECTEDThe Doctors HospitalComment on above:Performed By: #### MONIKA #### [facility] [address] [place] [address] Dr. Yvette StephenpylobacterNot detectedNormalNOT DETECTEDBarberton Citizens Hospital Comment on above:Performed By: #### MONIKA #### [facility] [address] [place] [address] Dr. Yvette WatsonyptosporidiumNot detectedNormalNOT DETECTEDThe Doctors HospitalComment on above:Performed By: #### MONIKA #### [facility] [address] [place] [address] Dr. Yvette Nascimento. CayetanensisNot detectedNormalNOT DETECTEDThe Doctors HospitalComascension [facility] on above:Performed By: #### CBCMAN #### [facility] [address] [address] [address] Yvette Samson Coli W348Jpd ApplicableNormalNot ApplicableThe Doctors HospitalComascension [facility] on above:Performed By: #### CBCMAN #### [facility] [address] [address] [address] Yvette Samson histolyticaNot detectedNormalNOT DETECTEDThe [facility] Comment on above:Performed By: #### CBCCATHIE #### [facility] [address] [address] [address] Yvette BotelloAECNot detectedNormalNOT DETECTEDThe Doctors HospitalComment on above:Performed By: #### CBCCATHIE #### [facility] [address] [address] [address] Yvette BotelloIECNot detectedNormalNOT DETECTEDThe Doctors HospitalComment on above:Performed By: #### MONIKA #### [facility] [address] [address] [address] Yvette BotelloPECNot detectedNormalNOT DETECTEDThe Doctors HospitalComment on above:Performed By: #### MONIKA #### [facility] [address] [address] [address] Yvette BotelloTECNot detectedNormalNOT DETECTEDThe Doctors HospitalComment on above:Performed By: #### MONIKA #### [facility] [address] [address] [address] Yvette Luna. LambliaNot detectedNormalNOT DETECTEDThe [facility] Comment on above:Performed By: #### CBCMAN #### [facility] [address] [address] [address] Yvette Gale CONTROLSPASSEDGenesis HospitalComment on above:Performed By: #### CBCCATHIE #### [facility] [address] [address] [address] Yvette Nicole CHELSY HEADERGI PANEL BACTERIAGenesis Hospital Comment on above:Performed By: #### MONIKA #### [facility] [address] [address] [address] Yvette Medina ECOLIGI PANEL DIARRHEAGENIC E.COLI / SHIGELLAGenesis HospitalComment on above:Performed By: #### MONIAK #### [facility] [address] [address] [address] Yvette Medina INFOSEE BELOWGenesis HospitalComment on above: Result Comment: EAEC- Enteroaggregative E. Coli EPEC- Enteropathogenic E. Coli ETEC- Enterotoxigenic E. Coli lt/st STEC- Shigella-like toxin-producing E. Coli stx1/stx2 EIEC- Shigella/Enteroinvasive E. ColiPerformed By: #### MONIKA #### [facility] [address] [address] [address] Yvette Medina PARASITESGI PANEL PARASITESGenesis Hospital Comment on above:Performed By: #### MONIKA #### [facility] [address] [address] [address] Yvette Medina VIRUSGI PANEL VIRUSESGenesis HospitalComment on above:Performed By: #### MONIKA #### [facility] [address] [address] [address] Yvette Moerovirus GI/GIINot detectedNormalNOT DETECTEDThe Doctors HospitalComment on above:Performed By: #### MONIKA #### [facility] [address] [address] [address] Yvette Gresham. ShigelloidesNot detectedNormalNOT DETECTEDThe Doctors HospitalComment on above:Performed By: #### MONIKA #### [facility] [address] [address] [address] Yvette WilcoxRotavirus ANot detectedNormalNOT DETECTEDThe [facility] Comment on above:Performed By: #### MONIKA #### [facility] [address] [address] [address] Yvette WilcoxSalmonellaNot detectedNormalNOT DETECTEDThe [facility] Comment on above:Performed By: #### CBCMAN #### [facility] [address] [address] [address] Yvette WilcoxSapovirusNot detectedNormalNOT DETECTEDThe [facility] Comment on above:Performed By: #### CBCMAN #### [facility] [address] [address] [address] Yvette WilcoxSTECNot detectedNormalNOT DETECTEDThe Doctors HospitalComment on above:Performed By: #### CBCMAN #### [facility] [address] [address] [address] Yvette ContrerasbrioNot detectedNormalNOT DETECTEDThe Doctors HospitalComment on above:Performed By: #### CBCMAN #### [facility] [address] [address] [address] Yvette Contrerasbrio CholeraNot detectedNormalNOT DETECTEDThe [facility] Comment on above:Performed By: #### MONIKA #### [facility] [address] [address] [address] Yvette Meyers. EnterocoliticaNot detectedNormalNOT DETECTEDThe Doctors HospitalComment on above:Performed By: #### CBCMAN #### [facility] [address] [address] [address] Yvette WilcoxLACTATE/LACTIC ACIDon 44-50-5397Ssyhesr [Moles/Vol]1.3 mmol/L Normal0.4-1.9The Doctors HospitalComment on above:Performed By: #### INSULIN #### [facility] [address] [address] [address] Yvette WilcoxLIPASEon 27-19-9005Ryqlsw [Catalytic activity/Vol]72.0 U/L Critically low73.0-393.0The [facility] HospitalComascension [facility] on above:Performed By: #### CVDTBH #### [facility] [address] [address] [address] Yvette Taylor BLD IMMUNO SCREENon 72-56-9259EPEDOY BLOODPositiveAbnormal NEGATIVEThe Doctors HospitalComment on above:Performed By: #### CBCMAN #### [facility] [address] [address] [address] Yvette Perez 14(COMP METB)on 16-59-7757Iofcuxn [Mass/Vol]3.9 g/dLNormal 3.4-5.0The Doctors HospitalComment on above:Performed By: #### CVDTBH #### [facility] [address] [address] [address] Yvette WilcoxAlbumin/Globulin [Mass ratio]1.0 {ratio}NormalThe Doctors HospitalComment on above:Performed By: #### CVDTBH #### [facility] [address] [place] [address] Dr. Yvette Keys [Catalytic activity/Vol]54 U/JQcqopu83-829Lzd Doctors HospitalComment on above:Performed By: #### CVDTBH #### [facility] [address] [place] [address] Dr. Yvette Morel [Catalytic activity/Vol]41 U/ZGxpgvu11-19Etn Doctors HospitalComment on above:Performed By: #### CVDTBH #### [facility] [address] [place] [address] Dr. Yvette Sapp gap [Moles/Vol]14.1 mmol/LNormalThe [facility] Comment on above:Performed By: #### CVDTBH #### [facility] [address] [address] [address] Yvette Rosado [Catalytic activity/Vol]21 U/HWkfopl41-26Taw Doctors HospitalComment on above:Performed By: #### CVDTBH #### [facility] [address] [address] [address] Yvette WilcoxBilirubin [Mass/Vol]0.5 mg/dLNormal0.2-1.0[facility] Comment on above:Performed By: #### CVDTBH #### [facility] [address] [place] [address] Dr. Yvette WilcoxCalcium [Mass/Vol]9.3 mg/dLNormal8.5-10.1[facility] Comment on above:Performed By: #### CVDTBH #### [facility] [address] [address] [address] Yvette WilcoxChloride [Moles/Vol]104 mmol/EQweqkt70-333Tsz [facility] Comment on above:Performed By: #### CVDTBH #### [facility] [address] [address] [address] Yvette WilcoxCO2 [Moles/Vol]23.4 mmol/WFztrku52.0-32.0[facility] Comment on above:Performed By: #### CVDTBH #### [facility] [address] [place] [address] Dr. Yvette WilcoxCreatinine [Mass/Vol]0.92 mg/dLNormal0.55-1.02The Doctors HospitalComment on above:Performed By: #### CVDTBH #### [facility] [address] [address] [address] Yvette BotelloGFR-AF ARMENIAN>60Normal>=60The Doctors HospitalComment on above:Performed By: #### CVDTBH #### [facility] [address] [place] [address] Dr. Yvette BotelloGFR-NON AF ARMENIAN>60Normal>=60The Doctors HospitalComment on above:Performed By: #### CVDTBH #### [facility] [address] [place] [address] Dr. Yvette WilcoxGlobulin (S) [Mass/Vol]3.9 g/dLNormalThe Doctors HospitalComment on above:Performed By: #### CVDTBH #### [facility] [address] [place] [address] Dr. Yvette WilcoxGlucose [Mass/Vol]138 mg/dLCritically drpa30-520Sdp Doctors HospitalComment on above:Performed By: #### CVDTBH #### [facility] [address] [place] [address] Dr. Yvette WilcoxPotassium [Moles/Vol]3.5 mmol/LNormal3.5-5.1[facility] Comment on above:Performed By: #### CVDTBH #### [facility] [address] [place] [address] Dr. Yvette WilcoxProtein [Mass/Vol]7.8 g/dLNormal6.4-8.2The [facility] Comment on above:Performed By: #### CVDTBH #### [facility] [address] [place] [address] Dr. Yvette Pittum [Moles/Vol]138 mmol/QMqivmc758-324Tco [facility] Comment on above:Performed By: #### CVDTBH #### [facility] [address] [place] [address] Dr. Yvette Valente nitrogen [Mass/Vol]11.0 mg/dLNormal7.0-18.0The Doctors HospitalComment on above:Performed By: #### CVDTBH #### [facility] [address] [place] [address] Dr. Yvette Valente nitrogen/Creatinine [Mass ratio]12.0 mg/mgNoGlenbeigh HospitalComment on above:Performed By: #### CVDTBH #### [facility] [address] [place] [address] Dr. Yvette MONET ONLYon [id number] SEENNormalNONE SEENBarberton Citizens HospitalComment on above:Performed By: #### ALANNA SUGGSR #### [facility] [address] [place] [address] Dr. Yvette Johnson identified Cx Nom (U)NOT INDICATEDNoOhioHealth Riverside Methodist Hospitale Doctors HospitalComment on above:Performed By: #### ALANNA SUGGSR #### [facility] [address] [place] [address] Dr. Yvette McguireormalNONE SEENBarberton Citizens HospitalComment on above: Performed By: #### GALO SUGGS #### [facility] [address] [place] [address] Dr. Yvette MEDINA CASTRARENormalBarberton Citizens HospitalComment on above:Performed By: #### IFEANYI, ERUR #### [facility] [address] [place] [address] Dr. Yvette WilcoxCrystals LM Nom (Urine sed)NONE SEENNormalNONE SEENBarberton Citizens HospitalComment on above:Performed By: #### IFEANYI, ERUR #### [facility] [address] [place] [address] Dr. Crawford ChangEpithelial cells LM Ql (Urine sed)RARENormalNONE SEEN /RAREThe Doctors HospitalComment on above:Performed By: #### IFEANYI ERUR #### [facility] [address] [place] [address] Dr. Yvette LopezCOUSNONE SEENNormalNONE SEENBarberton Citizens HospitalComascension [facility] on above:Performed By: #### IFEANYI ERUR #### [facility] [address] [place] [address] Dr. Yvette WilcoxIpcfrMQI1-1Napopl2-6Xza [facility] HospitalComasc[facility] on above:Performed By: #### IFEANYI ERUR #### [facility] [address] [place] [address] Dr. Yvette WilcoxWBCNONE SEENNormalNONE SEENBarberton Citizens HospitalComascension [facility] on above: Performed By: #### IFEANYI ERUR #### [facility] [address] [place] [address] Dr. Yvette WilcoxINSULINon 69-18-5864Kmfunsj97.2 uIU/mLNormal2.6-24.9[facility] HospitalComment on above:Performed By: #### INSULIN #### [facility] [address] [place] [address] Dr. Yvette WilcoxT4, T3U, FTI LABCORPon 40-15-1906Wvbh Thyroxine Index2.1Normal 1.2-4.9[facility] HospitalComment on above:Performed By: #### THYLC #### [facility] [address] [place] [address] Dr. Yvette WilcoxT3 Xbkowx62 %Critically jkm91-76Htp Doctors HospitalComment on above:Performed By: #### THYLC #### [facility] [address] [address] [address] Yvette WilcoxT4 [Mass/Vol]9.5 ug/dLNormal4.5-12.0The Doctors HospitalComment on above:Performed By: #### THYLC #### [facility] [address] [place] [address] Dr. Yvette Rios AUTO DIFFon 62-54-5850NPFR #0.0 103/ulNormal0.0-0.1The Doctors HospitalComment on above:Performed By: #### INSULIN #### [facility] [address] [place] [address] Dr. Yvette WilcoxBasophils/100 WBC (Bld)0.6 %Normal0.2-2.0[facility] Comment on above:Performed By: #### INSULIN #### [facility] [address] [place] [address] Dr. Yvette Lagunas #0.1 103/ulNormal0.0-0.7The Doctors HospitalComment on above: Performed By: #### INSULIN #### [facility] [address] [place] [address] Dr. Yvette Botelloosinophils/100 WBC (Bld)1.9 %Normal0.9-7.0[facility] Comment on above:Performed By: #### INSULIN #### [facility] [address] [place] [address] Dr. Yvette Botellorythrocyte distribution width (RBC) [Ratio]13.0 %Sycjcr28.0-15.0 The Doctors HospitalComment on above:Performed By: #### INSULIN #### [facility] [address] [place] [address] Dr. Yvette WilcoxHematocrit (Bld) [Volume fraction]38.7 %Fdwmaa79.0-48.0The Doctors HospitalComment on above:Performed By: #### INSULIN #### [facility] [address] [address] [address] Yvette WilcoxHemoglobin (Bld) [Mass/Vol]12.8 g/pOVnqihj27.0-16.0The Doctors HospitalComment on above:Performed By: #### INSULIN #### [facility] [address] [place] [address] Dr. Yvette Cruz #0.02 10e3/ulNormal0.00-0.03The Doctors HospitalComment on above:Performed By: #### INSULIN #### [facility] [address] [place] [address] Dr. Yvette Cruz %0.3 %Normal0.0-0.5The Doctors HospitalComment on above: Performed By: #### INSULIN #### [facility] [address] [place] [address] Dr. Yvette IrvingH #2.0 103/ulNormal1.2-3.8The Doctors HospitalComment on above:Performed By: #### INSULIN #### [facility] [address] [place] [address] Dr. Yvette Irvinghocytes/100 WBC (Bld)32.8 %Wkuvkg59.5-60.0The Doctors HospitalComment on above:Performed By: #### INSULIN #### [facility] [address] [place] [address] Dr. Yvette ZunigaUAL DIFF REQNONormalThe Doctors HospitalComment on above: Performed By: #### INSULIN #### [facility] [address] [place] [address] Dr. Yvette Dent (RBC) [Entitic mass]29.0 tnCfekos52.7-34.0The Doctors HospitalComment on above:Performed By: #### INSULIN #### [facility] [address] [place] [address] Dr. Yvette Dent (RBC) [Mass/Vol]33.1 g/dRZjsint00.9-35.2The Doctors HospitalComment on above:Performed By: #### INSULIN #### [facility] [address] [address] [address] Yvette DentV (RBC) [Entitic vol]87.8 tUVuyrre46.0-99.0The Doctors HospitalComment on above:Performed By: #### INSULIN #### [facility] [address] [place] [address] Dr. Yvette Stephenson #0.6 103/ulNormal0.3-0.8The Doctors HospitalComment on above:Performed By: #### INSULIN #### [facility] [address] [place] [address] Dr. Yvette Bustamanteocytes/100 WBC (Bld)8.8 %Normal1.7-12.0[facility] Comment on above:Performed By: #### INSULIN #### [facility] [address] [place] [address] Dr. Yvette Lianres #3.5 103/ulNormal1.4-6.5The Doctors HospitalComment on above:Performed By: #### INSULIN #### [facility] [address] [place] [address] Dr. Yvette Pennutrophils/100 WBC (Bld)55.6 %Wsutit51.0-75.0The Doctors HospitalComment on above:Performed By: #### INSULIN #### [facility] [address] [place] [address] Dr. Yvette Patellet mean volume (Bld) [Entitic vol]10.1 fLNormal9.5-13.5The Doctors HospitalComment on above:Performed By: #### INSULIN #### [facility] [address] [place] [address] Dr. Yvette WilcoxPLT360 103/rzWpbirv954-467Lps Doctors HospitalComment on above: Performed By: #### INSULIN #### [facility] [address] [place] [address] Dr. Yvette WilcoxRBC4.41 106/ulNormal4.20-5.40The Doctors HospitalComment on above:Performed By: #### INSULIN #### [facility] [address] [place] [address] Dr. Yvette WilcoxWBC6.2 103/ulNormal4.0-11.0The [facility] HospitalComascension [facility] on above: Performed By: #### INSULIN #### [facility] [address] [place] [address] Dr. Yvette WilcoxGLYCOHEMOGLOBIN A1Con 84-92-9277DWF RECOMMENDATIONSEE BELOWSedro Woolley The [facility] HospitalComascension [facility] on above:Result Comment: ADA RECOMMENDED LIMIT 4.0 - 6.0 ADA THERAPEUTIC TARGET < 7.0 ACTION SUGGESTED > 7.0Performed By: #### CBCMAN #### [facility] [address] [place] [address] Dr. Yvette WilcoxGlucose [Mass/Vol]126 mg/dLNoGlenbeigh HospitalComascension macomb-[facility] hospital on above:Performed By: #### CBCMAN #### [facility] [address] [place] [address] Dr. Yvette WilcoxHbA1c (Bld) [Mass fraction]6.0 %Normal4.5-6.2[facility] on above:Performed By: #### CBCMAN #### [facility] [address] [place] [address] Dr. Yvette Barger 51-98-7121Ciew [Mass/Vol]96.0 ug/uOGcghsx52.0-170.0The [facility] on above:Performed By: #### IRON #### [facility] [address] [place] [address] Dr. Yvette WilcoxLIPID PROFILEon 80-25-4379MJWZ-HDL RATIO NORMSEE [facility] CenterComasc[facility] on above:Result Comment: 3.3 - 4.4 LOW RISK 4.4 - 7.1 AVERAGE RISK 7.1 - 11.0 MODERATE RISK >11.0 HIGH RISKPerformed By: #### INSULIN #### [facility] [address] [place] [address] Dr. Yvette WilcoxCholesterol [Mass/Vol]194 mg/dLNormal<=200[facility] Comment on above:Performed By: #### INSULIN #### [facility] [address] [address] [address] Yvette WilcoxCholesterol in HDL [Mass/Vol]47 mg/mPIrvfqc09-89QdvBarberton Citizens HospitalComment on above:Performed By: #### INSULIN #### [facility] [address] [address] [address] Yvette WilcoxCholesterol in LDL [Mass/Vol]114.8 mg/dLGenesis HospitalComment on above:Performed By: #### INSULIN #### [facility] [address] [address] [address] Yvette Watt.total/Cholesterol in HDL [Mass ratio]4.1 {ratio} NormalBarberton Citizens HospitalComment on above:Performed By: #### INSULIN #### [facility] [address] [address] [address] Yvette Cook NORMAL> or = 60 mg/dl - LOW CARDIOVASCULAR RISK <40 mg/dl - HIGH CARDIOVASCULAR RISKGenesis HospitalComment on above:Performed By: #### INSULIN #### [facility] [address] [address] [address] Yvette Renee CALC NORMALSEE BELOWGenesis HospitalComment on above:Result Comment: <100 mg/dl OPTIMAL 100 - 129 mg/dl NEAR OR ABOVE OPTIMAL 130 - 159 mg/dl BORDERLINE HIGH 160 - 189 mg/dl HIGH >190 mg/dl VERY HIGH Performed By: #### INSULIN #### [facility] [address] [address] [address] Yvette WilcoxTriglyceride [Mass/Vol]161 mg/dLCritically high<=150The Doctors HospitalComment on above:Performed By: #### INSULIN #### [facility] [address] [address] [address] Yvette CarrenoLDL CALC32.2 mg/dLGenesis HospitalComment on above: Performed By: #### INSULIN #### [facility] [address] [address] [address] Yvette Perez 14(COMP METB)on 77-48-8302Gvefkij [Mass/Vol]3.4 g/dLNormal 3.4-5.0The Doctors HospitalComment on above:Performed By: #### INSULIN #### [facility] [address] [address] [address] Yvette WilcoxAlbumin/Globulin [Mass ratio]1.0 {ratio}NormalThe Doctors HospitalComment on above:Performed By: #### INSULIN #### [facility] [address] [address] [address] Yvette GudinoP [Catalytic activity/Vol]48 U/PKttdux81-848Zbl Doctors HospitalComment on above:Performed By: #### INSULIN #### [facility] [address] [place] [address] Dr. Yvette GudinoT [Catalytic activity/Vol]26 U/LNzutmc48-64Lgy Doctors HospitalComment on above:Performed By: #### INSULIN #### [facility] [address] [place] [address] Dr. Yvette Sapp gap [Moles/Vol]15.0 mmol/LNormalThe [facility] Comment on above:Performed By: #### INSULIN #### [facility] [address] [place] [address] Dr. Yvette WilcoxAST [Catalytic activity/Vol]16 U/RBkdrcd17-22Cjq Doctors HospitalComment on above:Performed By: #### INSULIN #### [facility] [address] [place] [address] Dr. Yvette WilcoxBilirubin [Mass/Vol]0.3 mg/dLNormal0.2-1.0[facility] Comment on above:Performed By: #### INSULIN #### [facility] [address] [place] [address] Dr. Yvette WilcoxCalcium [Mass/Vol]8.6 mg/dLNormal8.5-10.1[facility] Comment on above:Performed By: #### INSULIN #### [facility] [address] [address] [address] Yvette WilcoxChloride [Moles/Vol]107 mmol/JYsxrwy27-308Tbk [facility] Comment on above:Performed By: #### INSULIN #### [facility] [address] [address] [address] Yvette WilcoxCO2 [Moles/Vol]23.7 mmol/MMnerlv96.0-32.0[facility] Comment on above:Performed By: #### INSULIN #### [facility] [address] [address] [address] Yvette WilcoxCreatinine [Mass/Vol]0.94 mg/dLNormal0.55-1.02The Doctors HospitalComment on above:Performed By: #### INSULIN #### [facility] [address] [place] [address] Dr. Crawford ChangEGFR-AF ARMENIAN>60Normal>=60The Doctors HospitalComment on above:Performed By: #### INSULIN #### [facility] [address] [place] [address] Dr. Yvette BotelloGFR-NON AF ARMENIAN>60Normal>=60The Doctors HospitalComment on above:Performed By: #### INSULIN #### [facility] [address] [address] [address] Yvette WilcoxGlobulin (S) [Mass/Vol]3.5 g/dLNormalThe Doctors HospitalComment on above:Performed By: #### INSULIN #### [facility] [address] [address] [address] Yvette WilcoxGlucose [Mass/Vol]105 mg/oHCmhsqm60-859Oyn [facility] Comment on above:Performed By: #### INSULIN #### [facility] [address] [place] [address] Dr. Yvette WilcoxPotassium [Moles/Vol]3.7 mmol/LNormal3.5-5.1[facility] Comment on above:Performed By: #### INSULIN #### [facility] [address] [address] [address] Yvette WilcoxProtein [Mass/Vol]6.9 g/dLNormal6.4-8.2[facility] Comment on above:Performed By: #### INSULIN #### [facility] [address] [address] [address] Yvette WilcoxSodium [Moles/Vol]142 mmol/PHoulvt569-363Gjx [facility] Comment on above:Performed By: #### INSULIN #### [facility] [address] [place] [address] Dr. Yvette WilcoxUrea nitrogen [Mass/Vol]15.0 mg/dLNormal7.0-18.0The Doctors HospitalComment on above:Performed By: #### INSULIN #### [facility] [address] [place] [address] Dr. Yvette WilcoxUrea nitrogen/Creatinine [Mass ratio]16.0 mg/mgNormalThe Doctors HospitalComment on above:Performed By: #### INSULIN #### [facility] [address] [place] [address] Dr. Yvette Butterfield 63-41-7563GWC2.312 uIU/mLNormal0.358-3.740Bar[facility] HospitalComment on above:Performed By: #### CBCMAN #### [facility] [address] [place] [address] Dr. Yvette Wilcox Vital Signs Date TimeVital SignValuePerforming TwrtlptoqEviecred31-56-8889 08:13-0500Body .9 [facility]01-22-2025 08:13-0500Body mass index (BMI) [Ratio]32.27 kg/m2[facility]01-22-2025 08:13-0500Body .08 [facility]01-22-2025 08:13-0500Diastolic blood enuatnsz30 mm[Hg][facility] 12-06-2024 08:13-0500Systolic blood vedpvvgw711 mm[Hg][facility]01-17-2024 10:49-0500Body meemid929.4 [facility]01-17-2024 10:49-0500Body mass index (BMI) [Ratio]33.27 kg/m2[facility]01-17-2024 10:49-0500Body tpxgiw24.08 kgC[facility]01-17-2024 10:49-0500Diastolic blood eapagvdx77 mm[Hg][facility]01-17-2024 10:49-0500Systolic blood izvmmrab217 mm[Hg][facility]01-11-2023 14:17-0500Blood Pressure LocationMichael NILL [facility] Smwoqsma34-41-9092 14:17-0500Diastolic blood aexhqlyy27 mm[Hg]Adair NILL [facility] Urnhxorp80-71-6425 14:17-0500Heart rate 72 /minMichael NILL [facility] Trwcslgv27-34-5621 14:17-0500 Respiratory rate16 /minMichael NILL [facility] Szytpenn88-43-9420 14:17-0500Systolic blood mm[Hg]Adair NILL [facility] Asqvejgl71-12-0259 15:00-0400Blood Pressure LocationMichael NILL [facility] Omxlpzmn83-52-1125 15:00-0400Diastolic blood rfihdqqu04 mm[Hg]Adair NILL [facility] Tfcojwma66-68-7544 15:00-0400Heart rate 76 /minMichael NILL [facility] Wjzirtdq46-62-1318 15:00-0400 Respiratory rate16 /minMichael NILL [facility] Kntvdxri23-17-2330 15:00-0400Systolic blood sudcrvno442 mm[Hg]Adair LINO [facility] Surgery [place] Encounters Encounter DateEncounter TypeCare ProviderFacilityStart: 07-10-2025 End: 56-69-5274Hhgvzb-up encounterFrances Andrews AERIAL PHOTOGRAPH INTERPRETER-Link Trigger Work Phone: [facility] - CyldeComment on above: Mammography diagnostic unilateral left with CADStart: 07-10-2025 End: 56-96-8180aiuqsqcoffUCPK M KROTZERClermont County Hospitaltart: 06-08-2025 End: 53-27-5502Zepddumta encounterFrances Anderws AERIAL PHOTOGRAPH INTERPRETER-Link Trigger Work Phone: [facility] Obstetrics/GynecologyStart: 01-09-2025 End: 37-80-4431Iythpq Patrizia Andrews AERIAL PHOTOGRAPH INTERPRETER-Link Trigger Work Phone: [facility] - CyldeComment on above: Abnormality of left breast on screening mammogram (Primary Dx); Family history of breast cancer; Hx of breast cancer; Scattered fibroglandular tissue density of both breasts on mammographyStart: 01-04-2025 End: 09-32-6662Udvxzt Patrizia Andrews AERIAL PHOTOGRAPH INTERPRETER-Link Trigger Work Phone: [facility] - CyldeComment on above: Abnormality of left breast on screening mammogram (Primary Dx); Hx of breast cancer; Scattered fibroglandular tissue density of both breasts on mammographyStart: 12-06-2024 End: 92-59-0392Cuzvgph encounter procedurePwsCarilion Clinic St. [facility] Start: 12-06-2024 End: 78-22-0594Fjnwmqyb preventive med est patient 40-64yrsPws [place] Supervisor [facility] - CyldeComment on above:Well woman exam with routine gynecological exam (Primary Dx); Encounter for screening mammogram for breast cancer; Endometrial thickening on ultrasound; Standardized adult depression screening tool completedStart: 12-06-2024 End: 99-14-5054zyeyxtxcdlKCCLRA Cirilo [facility] Ambulatory PPGStart: 12-43-9761Ppewlomlz for gynecological examination (general) (routine) without abnormal findingsLake [facility] Ambulatory PPGStart: 12-01-2023 End: 44-75-8790Wejesdl encounter procedureCox [facility] Work Phone: Start: 12-01-2023 End: 00-76-1417Qgxsurbd preventive med est patient 40-64yrsPchoctaw memorial hospital – hugo [place] Supervisor [facility] - CyldeComment on above:Well woman exam with routine gynecological exam (Primary Dx); Endometrial thickening on ultrasound; Standardized adult depression screening tool completedStart: 12-23-2022 End: 75-26-9288hafkwuryigKRQAQO CRAMERFacility:M0Jqrlh: 35-07-7799bzuckxcbopFG MICHAEL NILLFacility:C8Fdmpk: 11-25-2022 End: 15-49-2652ncxlgzwqzqGduuauh R NILLFacility: Yintart: 11-25-2022 End: 90-30-7229Mqowumf encounter procedureMichael R NILL General Surgery Nill/Said [place] Start: 11-12-2022 End: 76-58-0505xwlpsrrqfgDBWPNQ TERRIEFacility:C0Vnhdt: 08-21-2022 End: 62-85-4352izmxqlvchnAedyicf R NILLFacility: YinueStart: 08-21-2022 End: 74-94-5656Dezorja encounter procedureMichael R NILL General Surgery [facility]/[facility] [place] Start: 08-20-2022 End: 21-71-9127nylvlnnxkiEWTPOH TERRIEFacility:T4Qrvfe: 44-01-8582watrggnuna Adair R NILLFacility: JudyevueStart: 08-04-2022 End: 88-80-5232vdofydghaoMTSWPP CRAMERFacility:M6Nmvrp: 07-30-2022 End: 47-63-1307Phecadoobx and management of inpatientPAMELA CRAMERFacility:H1 Start: 29-83-0789Xtesyuwfo for general adult medical examination without abnormal findingsPAMELA CRAMERThe [place] HospitalStart: 07-13-2022 End: 84-72-3081nbcsrklnxuTLGBTI CRAMERFacility:A1Dpbdw: 07-13-2022 End: 36-70-3130Lxkytejde for general adult medical examination without abnormal findingsPAMELA CRAMERFacility:H1 Procedures DateProcedureProcedure DetailPerforming ClinicianStart: 12-82-1382Slzpsmnohkf Frances Andrews AERIAL PHOTOGRAPH INTERPRETER-PRODUCTION HARDENER Work Phone: Start: 75-07-5420DceqlhenqhqWznh Krotzer AERIAL PHOTOGRAPH INTERPRETER-PRODUCTION HARDENER Work Phone: Start: 44-84-2874OogttatdqccSdtn Joeotzer AERIAL PHOTOGRAPH INTERPRETER-PRODUCTION HARDENER Work Phone: Start: 13-21-6234Tylvu depression screening assessment [facility] MidwifeStart: 13-56-0168XfjptkvypnfKtkc MidwifeStart: 60-49-4222Ucxbm depression screening assessmentTaylor Regional Hospital MidwifeStart: 12-89-6721Lcllqxyhqac observation [Identifier] in Cervix by Cyto stainPchoctaw memorial hospital – hugo MidwifeCesarean section Adair LINO Lumpectomy of right breastMicjovany LINO Plan of Treatment DateCare ActivityDetailAuthorStart: 18-16-4767Dqijgtiau for malignant neoplasm of breastMammogramCleveland Clinic [facility]inte [facility] SystemStart: 32-79-8510Ofpjaczvt for malignant neoplasm of breastMammogramCleveland Clinic South [facility]inte Hospital SystemStart: 01-04-2026 Screening for malignant neoplasm of breastMammogramCleveland Clinic South [facility]inte Hospital SystemStart: 52-32-2382Ytqen BMI Follow Up PlanAdult BMI Follow Up PlanCleveland Clinic South Pointe Hospital SystemStart: 23-77-5529Hpdyj BMI ScreeningAdult BMI ScreeningCleveland Clinic South Pointe Hospital SystemStart: 08-10-5612Nnsargfpug ScreeningDepression ScreeningCleveland Clinic South Pointe Hospital SystemStart: 28-46-0673Uvgqqwr ScreeningTobacco ScreeningCleveland Clinic South Pointe Hospital System Start: 52-29-1618Xkqifqjfk for malignant neoplasm of cervixPap SmearCleveland Clinic South Pointe Hospital SystemStart: 96-77-5617Fxiuxzxfq vaccinationInfluenza VaccineCleveland Clinic South Pointe Hospital SystemStart: 07-10-2025 End: 85-27-6606Pgfekxl encounter procedureMetroHealth [facility] - Mammography/DEXA ImagingStart: 06-08-2025 End: 56-82-1518KW Breast - left limitedUltrasound breast limited left Imaging Routine Abnormality of left breast on screening mammogram Expected: 06/08/2025, Expires: 06/08/2026ProWOWash Work Phone: Comment on above:Expected: 06/08/2025, Expires: 06/08/2026Start: 01-09-2025 End: 60-93-6416WY Breast duct - left Views W contrast intra ductMammography diagnostic unilateral left with CAD Imaging Routine Abnormality of left breast on screening mammogram Family history of breast cancer Hx of breast cancer Scattered Fibroglandular Tissue Density Of Both Breasts On Mammography Expected: 01/09/2025, Expires: 01/09/2026Pro[facility]iLizhi Work Phone: Comment on above:Expected: 01/09/2025, Expires: 01/09/2026Start: 01-09-2025 End: 20-49-4750Cxwulqi encounter procedureMetroHealth [facility] - Mammography/DEXA ImagingStart: 01-04-2025 End: 59-83-0447QZ Breast duct - left Views W contrast intra ductMammography diagnostic unilateral left with CAD Imaging Routine Abnormality of left breast on screening mammogram Hx of breast cancer Scattered Fibroglandular Tissue Density Of Both Breasts On Mammography Expected: 01/04/2025, Expires: 01/04/2026 [facility] Work Phone: Comment on above:Expected: 01/04/2025, Expires: 01/04/2026Start: 01-04-2025 End: 38-62-4078TJ Breast - left limitedUltrasound breast limited left Imaging Routine Abnormality of left breast on screening mammogram Hxof breast cancer Scattered Fibroglandular Tissue Density Of Both Breasts On Mammography Expected: 01/04/2025, Expires: 01/04/2026[facility] WestMendeley SystemComment on above: Expected: 01/04/2025, Expires: 01/04/2026Start: 47-86-5860Txvyurwvv for malignant neoplasm of breastMammogramProDch Regional Medical Center Paydiant SystemStart: 12-06-2024 End: 21-75-7116KAC Breast - bilateral screeningMammography screening bilateral with CAD Imaging Routine Encounter for screening mammogram for breast cancer Expected: 12/06/2024, Expires: 12/06/2025ProMarion HospitalLizhi Work Phone: Comment on above:Expected: 12/06/2024, Expires: 12/06/2025Start: 12-06-2024 End: 25-44-3270PE Pelvis transvaginalUltrasound transvaginal non OB Imaging Routine Endometrial thickening on ultrasound Expected: 12/06/2024, Expires: 12/06/2025ProDch Regional Medical Center Paydiant SystemComment on above:Expected: 12/06/2024, Expires: 12/06/2025Start: 46-65-9545Suidj BMI Follow Up PlanAdult BMI Follow Up Plan [facility] Systemtart: 18-31-5383Mlmkf BMI ScreeningAdult BMI Screening [facility] Paydiant SystemStart: 41-41-6766Lzherhtchq ScreeningDepression Screening [facility] SystemStart: 84-41-1860Cxkymkp ScreeningTobacco Screening [facility] Systemtart: 12-31-2023 End: 44-56-4619Sextnem encounter olkviygrz54/16/2024 8:00 AM EST Appointment [facility] - Mammogram DEXA [address] [place] [address] Brenden Kraus MD [address] [place] [id number] [facility] - Mammogram DEXAStart: 12-01-2023 End: 28-78-9194OR Pelvis transabdominal and transvaginalUltrasound pelvic with transvaginal Imaging Routine Endometrial thickening on ultrasound Expected: 0 12/01/2023, Expires: 12/01/2024[facility]OCT[facility]ITALCA [facility] Work Phone: Comment on above:Expected: 12/01/2023, Expires: 12/01/2024Start: 36-27-7093Zygfy BMI Follow Up PlanAdult BMI Follow Up Plan [facility] Systemtart: 34-39-6202Dblaxdortpsgve of varicella zoster vaccineZoster (Shingles) Vaccine (1 of 2)[facility] Systemtart: 11-85-7495ZZzD,Tdap and Td Vaccines (1 - Tdap)DTaP,Tdap and Td Vaccines (1 - Tdap)[facility] Immunizations Immunization DateImmunizationNotesCare WqygcdkpThcivbin42-09-4872jzuniovqi virus vaccine, unspecified formulationLisa Darryl AERIAL PHOTOGRAPH INTERPRETER-PRODUCTION HARDENER Work Phone: [facility] Wmxuhd21-45-2151ljaveultv virus vaccine, unspecified formulationMichael NILL General Surgery Xsmrbkwi11-17-8309VGYL-ZnD-0 (COVID-19) mRNA BNT-162b2 vaxMichael NILL General Surgery BellevueComment on above:Result Comment: 2022-11-25: [id number]-RaX-8 (COVID-19) mRNA BNT-162b2 vax Adair NILL General Surgery Agwfvdna07-21-4829WZLT-EiT-4 (COVID-19) mRNA BNT-162b2 vaxMichael NILL General Surgery [place] Payers DatePayer CategoryPayerPolicy [id number] [facility] Care - OtherANTHEM Member Subscriber Plan / Payer (Effective 2024-Present) Name: Bria Chávez Relation to Subscriber: Self Name: Bria Chávez ID: [id number] (IC) Type: Not on file Address: [address] [place] [id number] [id number] BCBS OUT OF STATE PPO/TRUST [id number] 2021-Present [phone] [address] [place] [address] [id number].3.019[id number] 2.0.1.729574.3.57[id number] 2..840.1.609960.3.57[id number] 2.840.1.453196.3.57[id number] 2.16.840.1.156896.3.57[id number] 2.16840.1.929973.3.57[id number] 2.16.840.1.280095.3.57[id number] 2.16840.1.763515.3.57[id number] 2.16.840.1.271678.3.57[id number] 2.16.840.1.794120.3.57[id number] 2.16.840.1.974815.3.57[id number] 2.16.840.1.884900.3.57[id number] 2.16.840.1.941674.3.57[id number] 2.16.840.1.282554.3.57[id number] 2.16.840.1.754233.3.579.[id number] 2.16.840.1.547896.3.57[id number] 2.16.840.1.198549.3.57[id number] 2.16.840.1.385027.3.579.2.[id number] Social History DateTypeDetailFacilityStart: 08-21-2022 End: 47-00-2926Vycntwa smoking statusNever smoked tobacco (finding)[facility]ianTobacco smoking statusNeverGeneral Surgery [facility] Foundationtart: 12-28-2022 End: 80-76-0036Vtz Assigned At BirthFemaleGdiamond children's medical centeral Surgery [place] Start: 69-46-0703Szcgtfn use and exposureSmokeless tobacco non-userProMedica Select [facility] SystemStart: 12-06-2024 End: 48-82-7867Mlwvogvbe beverage intakeCurrent non-drinker of alcohol (finding) [facility] SystemStart: 12-28-2022 End: 23-99-2900Heksbja of Social functionProMary Rutan HospitalDo you belong to any clubs or organizations such as caodaism groups, unions, fraternal or athletic groups, or school groups?NoPSuburban Community Hospital & Brentwood HospitalAre you now , , , , never or living with a partner?DivorcedProMary Rutan HospitalHow often to you have a drink containing alcohol?NeverProMary Rutan HospitalDo you feel stress - tense, restless, nervous, or anxious, or unable to sleep at night because yourmind is troubled all the time - these days [OSQ]Not at allRutherford Regional Health Systemtart: 80-69-4379Polgtlgez78JprDazqay Health SystemStart: 69-76-4034Txd assigned at [facility] Start: 12-07-3942ZozXajhtk (finding)[facility] Systemtart: 10-24-2021 Gender identityIdentifies as female gender (finding)[facility] Start: 08-12-1149Iorpmo orientationHeterosexual (finding)[facility] Functional Status EcqfAlbjjzscyvSkbtfpTwrilwzu46-39-6893Ptyenybdjy StatusN/AGeneral Surgery Lselqfri32-51-2134Bjhejxfums StatusN/AGeneral Surgery [place] Clinical Notes 08-21-2022 to 06-08-2025 Note Date & FdbrGmgmWhbykgxv08-34-0680 Miscellaneous Notes* Telephone Encounter - Amada Meade - 06/08/2025 9:41 AM EDT Frances at [facility] Scheduling called stating Pt is due for 6 month follow-up to Mammogram. Frances is requesting an ultrasound breast left be added to Pt's orders. * Telephone Encounter - Julissa Amezquita RN - 06/08/2025 9:41 AM EDT Ultrasound for left breast ordered. - Julissa Amezquita RN 06/08/25 1:07 PM documented in this encounterOhioHealth Riverside [facility] Hospital07-25-2025 Telephone encounter Note* Telephone Encounter - Amada Meade - 06/08/2025 9:41 AM EDT Frances at [facility] Scheduling called stating Pt is due for 6 month follow-up to Mammogram. Frances is requesting an ultrasound breast left be added to Pt's orders. [facility]07-25-2025 Telephone encounter Note* Telephone Encounter - Julissa Amezquita RN - 06/08/2025 9:41 AM EDT Ultrasound for left breast ordered. - Julissa Amezquita RN 06/08/25 1:07 PM [facility]01-22-2025 History of Present illness Narrative* Frances Andrews, ANDREW-PRODUCTION HARDENER - 12/06/2024 8:15 AM EST Bria Chávez is a pleasant 59 y.o. 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 She is postmenopausal. Hysterectomy: no She is not sexually active. Denies painful intercourse. denies pelvic pain. 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 Vaginal Bleeding none Hot flashes / [...] Arthritis BRCA1 negative BRCA2 negative Breast cancer ([facility]) 11-07-2018 Lumpectomy-cancer cleared Deep vein thrombosis (CMS-HCC) 08/2022 treated with Eliquis for 30 days, not currently taking Visual impairment glasses Past Surgical History: Procedure Laterality Date BREAST BIOPSY Right 11/07/2018 BREAST LUMPECTOMY Right 11/2018 BREAST SURGERY Right 11/07/2018 biopsy SECTION X 3 COLONOSCOPY 12/23/2022 ENDOMETRIAL ABLATION endometrial ablation HYSTEROSCOPY DILATION CURETTAGE N/A 01/19/2023 Performed by Nasima Donis MD at [facility] MASTECTOMY PARTIAL BREAST NL FS Right 11/24/2018 Performed by Adair Marcus DO at [facility] Family History Problem Relation Age of Onset [...] -200 units per tablet Take 1 tablet bymouth in the morning and 1 tablet in [...] provided. All questions answered. RTO for annual car ferry master exam and / or PRN. Frances Andrews APRN-TOÑITO Lagunas 12/06/24 0850 documented in this encounterOhioHealth Riverside Methodist Hospital01-17-2024 History of Present illness Narrative* TOÑITO Martinez - 12/01/2023 11:00 AM EST Bria Chávez is a 58 y.o. 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 She is postmenopausal. Hysterectomy: no. Patient with hx thickened endometrium while on tamoxifen. Last u/s a year ago. Patient stopped taking tamoxifen in June 2023. Patient recently joined [email or web address] and has lost three pounds this week. She not sexually active. Denies pelvic pain. 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 Vaginal Bleeding none Hot flashes / menopausal symptoms - None Bladder issues - None Bowel issues - None History of abnormal Pap smear: no Last pap: 8-19-pgmxpfrh Family history of uterine or ovarian cancer: yes - m grandma Family hx pancreatic or prostate cancer: no Family history of colon cancer: no Family history of breast cancer: yes - mother, mgm sisters Regular self breast exam: yes Last mammogram: 12-30-22 Dexa Scan: na Colonoscopy / Cologuard: 01-07 PHQ9 depression screenin OB History 3 Para 3 Term 3 AB Living 3 SAB IAB Ectopic Multiple Live Births 3 Past Medical History: Diagnosis Date Arthritis BRCA1 negative BRCA2 negative Breast cancer ([facility]) 11-07-2018 Lumpectomy-cancer cleared Deep vein thrombosis ([facility]) 08/2022 treated with Eliquis for 30 days, not currently taking Visual impairment glasses Past Surgical History: Procedure Laterality Date BREAST BIOPSY Right 11/07/2018 BREAST LUMPECTOMY Right 11/2018 BREAST SURGERY Right 11/07/2018 biopsy SECTION X 3 COLONOSCOPY 12/23/2022 ENDOMETRIAL ABLATION endometrial ablation HYSTEROSCOPY DILATION CURETTAGE N/A 01/19/2023 Performed by Nasima Donis MD at [facility] MASTECTOMY PARTIAL BREAST NL FS Right 11/24/2018 Performed by Adair Marcus DO at [facility] Family History Problem Relation Age of Onset [...] -200 units per tablet Take 1 tablet bymouth in the morning and 1 tablet in [...] provided. All questions answered. RTO for annual car ferry master exam and / or PRN. TOÑITO Martinez APRN-CNP 12/01/23 1134 documented in this encounterOhioHealth Riverside Methodist Hospital02-08-2023 NoteOPERATIVE NOTE OPERATION DATE: 12/23/2022 PREOPERATIVE DIAGNOSIS: History of colitis. POSTOPERATIVE DIAGNOSIS: Normal colon. PROCEDURE: Colonoscopy to cecum. SURGEON: Adair Lino M.D. ANESTHESIA: Monitored anesthesia care. ESTIMATED BLOOD [...] recovery room in good condition. CC: Noemi Falcon, [facility]10-07-2022 NoteChief Complaint consultation for N/V, loose stools and [...] episode of colitis/gastroenteritis; [facility] mid [facility] for crampy abd pain, N/V; bloody diarrhea; stools studies negative; abd/pelvic ct scan with transverse colitis; resolved with antibiotics and steroids; now without pain, normalbms; no h/o similar problems in past, no [...] swallowing difficulties, no hearing loss, no ear infection(s),no nose bleeds. Cardiovascular: normal blood pressure, no [...] malignant neoplasm of skin: Mother. Uterine cancer: Mother.[facility] HospitalComment on above:Result Comment: Electronically Signed By: Adair LINO MD\Date and Time Signed: 08/21/22 16:41 EDTEvaluation + Plan note No data available for this section [facility] [place] Evaluation note* Diagnosis Well woman exam with routine gynecological exam- Primary Routine gynecological examination Encounter for screening mammogram for breast cancer Endometrial thickening on ultrasound Standardized adult depression screening tool completed documented [facility] encounter [facility] SystemEvaluation [facility]* Diagnosis Well woman exam with routine gynecological exam- Primary Routine gynecological examination Endometrial thickening on ultrasound Standardized adult depression screening tool completed [facility] SystemEvaluation [facility]* Diagnosis Abnormality of left breast on screening mammogram- Primary Hx of breast cancer Personal history of malignant neoplasm of breast Scattered fibroglandular tissue density of both breasts on mammography documented in this encounter [facility] SystemEvaluation note* Diagnosis Abnormality of left breast on screening mammogram- Primary Family history of breast cancer Family history of malignant neoplasm of breast Hx of breast cancer Personal history of malignant neoplasm of breast Scattered fibroglandular tissue density of both breasts on mammography documented in this encounter [facility] SystemEvaluation note* Diagnosis Abnormality of left breast on screening mammogram- Primary documented in this encounter [facility] HospitalHospital Discharge instructions No data available for this section [facility] [place] Instructions* Attachments The following attachments cannot be sent through Care Everywhere. * Semaglutide? ADULT ([place]) * Calcium and vitamin D for bone health ([place]) documented in this encounterC[facility] SystemInstructions* Attachments The following attachments cannot be sent through Care Everywhere. * Lowering Your Risk of Breast Cancer ([place]) documented in this encounterCleveland Clinic [facility] SystemInstructionsNot on file documented in this encounterCleveland Clinic [facility] SystemInstructionsNot on file documented in this encounterProDayton Osteopathic Hospital SystemInstructionsNot on file documented in this encounterCleveland Clinic [facility] SystemProgress note No data available for this section [facility] [place] Summary Purpose Family History No Family History Records FoundNo Family History Records FoundNo Family History Records FoundNo Family History Records Found Advance Directives No Advanced Directives Records FoundNo Advanced Directives Records FoundNo Advanced Directives Records FoundNo Advanced Directives Records Found Additional Source Comments Patient Care team informatio n (unrecognized section and content) Team MemberRelationshipSpecialtyStart DateEnd Date Noemi Falcon APRN-DONA [address] [place] [id number] PCP - GeneralFamily Medicine12/27/20Team MemberRelationshipSpecialtyStart DateEnd Date Noemi Falcon APRN-DONA [address] [place] [address] PCP - GeneralFamily Medicine12/27/20Team MemberRelationshipSpecialtyStart DateEnd Date Noemi Falcon APRN-PRODUCTION HARDENER [address] [facility] [place] [address] PCP - [facility]12/27/20Team MemberRelationshipSpecialtyStart DateEnd Date Noemi Falcon APRN-PRODUCTION HARDENER [address] [facility], [place] [address] PCP - [facility]12/27/20Team MemberRelationshipSpecialtyStart DateEnd Date Noemi Falcon APRN-PRODUCTION HARDENER [address] [facility], [place] [address] PCP - [facility]12/27/20 INFORMATION SOURCE (unrecogn ized section and content) DATE CREATED AUTHOR 12/30/2022 [facility] DATE CREATED AUTHOR AUTHOR'S ORGANIZ ATION 12/31/2022 [facility] DATE CREATED AUTHOR AUTHOR'S ORGANIZ ATION 12/07/2024 [facility] DATE CREATED AUTHOR AUTHOR'S ORGANIZ ATION 07/11/2025 [facility] Reason for Visit (unrecogniz ed section and content) ReasonCommentsGynecologic ExamPt is here for annual exam.ReasonComments Gynecologic ExamPt is here for annual exam. Pt is scheduled on 12-31 for [...] BE BASED ON THE PRIMARY CLINICAL RECORDS. [facility] [employer] [facility]. provides no warranty or guarantee of the accuracy or completeness of information in this document.
--- OUTSIDE RECORDS SUMMARY | 2025-09-14 07:27 | XMS_ITS | Patient Health Record ---
Author Organization [facility] in [place] Address [address] [place] [address] Care Team Providers Care Licensed Land Surveyor Name Role Phone Mikayla, Noemi Primary Care Provider [phone] Allergies Allergen (clinical drug ingredient) Drug/Non Drug Allergy documented on EMR Reaction Allergy Type Onset Date Status Substance with 5-ktexsqg-7-methylglutaryl-coenzyme A reductase inhibitor mechanism of action (substance) Statins myalgias, weakness Drug Allergy Active Results Component Value Reference Range Notes Triiodothyronine (T3) Reviewed date:09/19/2024 09:46:37 AM Interpretation: Performing Lab: Notes/Report: [facility] , Triiodothyronine (T3) 125 71-180 ng/dL Performed at: [facility] [address] [id number] Professional Builder: John Nassar PhD, Phone: [phone] Performing Lab: see note - [facility] LBFREE T3 Reviewed date:08/01/2025 10:06:48 AM Interpretation: Performing Lab: Notes/Report: [facility] ,Free T32.822.18-3.98 pg/mLPerforming Lab:see note - [facility] LB GLYCOHEMOGLOBIN A1C Reviewed date:08/03/2025 01:00:55 PM Interpretation: Performing Lab: Notes/Report: [facility] ,Glycohemoglobin A1C5.44.5-6.2 % ADA RECOMMENDED LIMIT 4.0 - 6.0 ADA THERAPEUTIC TARGET < 7.0 ACTION SUGGESTED > 7.0 Estimated Average Qhhtved117Mylkrabytw Lab:see note - [facility] LB LIPID PROFILE Reviewed date:08/01/2025 10:06:48 AM Interpretation: Performing Lab: Notes/Report: [facility] ,Rdnigoemedarj84<=150 mg/bGQpnbdydvdqs352<=200 mg/dLHDL Pjqgwumdyta4423-87 mg/dL > or =60 mg/dl - LOW CARDIOVASCULAR RISK <40 mg/dl - HIGH CARDIOVASCULAR RISK LDL Cholesterol Mbvjsjduuo234.8 <100 mg/dl OPTIMAL 100-129 mg/dl NEAR OR ABOVE OPTIMAL 130-159 mg/dl BORDERLINE HIGH 160-189 mg/dl HIGH >190 mg/dl VERY HIGH VLDL IUGTWRZROMW31.2Chol HDL Ratio3.5 3.3 - 4.4 LOW RISK 4.4 - 7.1 AVERAGE RISK 7.1 - 11.0 MODERATE RISK >11.0 HIGH RISK Performing Lab:see note - [facility] LBPROF 14(COMP METB) Reviewed date:08/01/2025 10:06:48 AM Interpretation: Performing Lab: Notes/Report: [facility] ,Eevbbj954075-750 mmol/LPotassium3.43.5-5.1 mmol/RGzosqpjs09998-774 mmol/LCarbon Yrsbypp65.521.0-32.0 mmol/LAnion Gap13.9Mripkgj0468-573 mg/dLBlood Urea Nitrogen 18.07.0-18.0 mg/dLCreatinine0.810.55-1.02 mg/dLEstimated GFR ( Robyn>60 >=60 mL/min/1.73m 2Estimated GFR (Non- Loren>60>=60 mL/min/1.73m 2BUN Creatinine Ratio22.1Avxadnc3.48.5-10.1 mg/dLBilirubin Total0.50.2-1.0 mg/dL Aspartate Amino Xvhdlkjzheq5699-92 U/LAlanine Clamxhoqarqxghim0532-14 U/L Alkaline Dzuydoyyvje4843-707 U/LTotal Protein7.36.4-8.2 g/dLAlbumin Level3.63.4- 5.0 g/dLGlobulin3.7Albumin Globulin Ratio1.0Performing Lab:see noteML - [facility] LBT4 Reviewed date:08/01/2025 10:06:48 AM Interpretation: Performing Lab: Notes/Report: [facility] ,T4 Thyroxine8.604.80-13.90 ug/dLPerforming Lab:see note - [facility] LBTSH Reviewed date:08/01/2025 10:06:48 AM Interpretation: Performing Lab: Notes/Report: [facility] ,Thyroid Stimulating Hormone1.8990.358-3.740 uIU/mLPerforming Lab:see note - [facility] LBVITAMIN D 25 [place] Reviewed date:08/03/2025 01:00:55 PM Interpretation: Performing Lab: Notes/Report: [facility] ,Vitamin D27.4 <20 ng/mL Vit D deficient 20-<30 ng/mL Vit D insufficient 30-100 ng/mL Vit D sufficient >100 ng/mL Potential Toxicity Performing [facility] LBIRON Reviewed date:08/01/2025 10:06:48 AM Interpretation: Performing Lab: Notes/Report: [facility] ,Iron86.050.0-170.0 ug/dLPerforming Lab:see note - [facility] LB INSULIN Reviewed date:08/03/2025 01:00:55 PM Interpretation: Performing Lab: Notes/Report: Rachell ,Urrucet67.82.6-24.9 uIU/mL Performed at: [facility] [address] [id number] Professional Builder: John Nassar PhD, Phone: [phone] Performing Lab:[facility] LBCBC AUTO DIFF Reviewed date:08/01/2025 10:06:48 AM Interpretation: Performing Lab: Notes/Report: [facility] ,White Blood Count7.44.0-11.0 10 3/uLRed Blood Count4.484.20-5.40 10 6/uL Shmhgxnedb36.212.0-16.0 g/cFNmzyfyuojy05.736.0-48.0 %Mean Corpuscular Xkzcbx65.4 81.0-99.0 fLMean Corpuscular Oruwolrvzd44.526.7-34.0 pgMean Corpuscular HGB Conc 34.129.9-35.2 g/dLRed Cell Distribution Width12.811.0-15.0 %Platelet Suckl874 150-450 10 3/uLMean Platelet Jreohw38.39.5-13.5 fLNeutrophils Percent Auto58.0 43.0-75.0 %Lymphocytes Percent Auto31.820.5-60.0 %Monocytes Percent Auto7.31.7- 12.0 %Eosinophils Percent Auto2.00.9-7.0 %Basophils Percent Auto0.50.2-2.0 % Immature Granulocytes Pct Auto0.40.0-0.5 %Neutrophils Absolute Auto4.31.4-6.5 10 3/uLLymphocytes Absolute Auto2.41.2-3.8 10 3/uLMonocytes Absolute Auto0.50.3-0.8 10 3/uLEosinophils Absolute Auto0.20.0-0.7 10 3/uLBasophils Absolute Auto0.00.0- 0.1 10 3/uLImmature Granulocytes Abs Auto0.030.00-0.03 10 3/uLPerforming Lab:see noteML - [facility] LBPROF 14(COMP METB) Reviewed date:09/19/2024 09:46:51 AM Interpretation: Performing Lab: Notes/Report: [facility] ,Nptved600750-336 mmol/LPotassium3.93.5-5.1 mmol/BAmgszheo44954-672 mmol/LCarbon Weymvdy00.121.0-32.0 mmol/LAnion Gap14.5Kswhkss26048-202 mg/dLBlood Urea Gjrsulxh40.07.0-18.0 mg/dLCreatinine1.090.55-1.02 mg/dLEstimated GFR ( Robyn>60>=60 mL/min/1.73m 2Estimated GFR (Non- Ame51>=60 mL/min/1.73m 2 BUN Creatinine Ratio13.9Vncpslc2.68.5-10.1 mg/dLBilirubin Total0.50.2-1.0 mg/dL Aspartate Amino Tgggvwfslzy8371-03 U/LAlanine Smuuxspuohcelhpo3582-09 U/L Alkaline Orrakwrzcda9066-202 U/LTotal Protein7.36.4-8.2 g/dLAlbumin Level3.63.4- 5.0 g/dLGlobulin3.7Albumin Globulin Ratio1.0Performing Lab:see noteML - [facility] LB Reason For Referral No Information Medications Medication SIG (Take, Route, Frequency, Duration) Notes Start Date End Date Status Triple [employer]-3-6-9 ActiveSemaglutide 0.6 mg/0.5 mL Semaglutide 0.6 mg/0.5 mL0.5 mL Subcutaneous Once WeeklyActiveVitamin X8JfumpuIylvwwy MagnesiumActiveEvening [place] Oil 500 MGas directed OrallyActiveAspirin Low Dose 81 MGTAKE 1 TABLET BY MOUTH EVERY DAY; Duration: 90ActiveColesevelam HCl 625 MGTAKE 4 TABLETS BY MOUTH EVERY DAY; Duration: 90ActiveMultivitaminActiveGlucosamineActiveOmeprazole 40 MGTAKE 1 CAPSULE BY MOUTH EVERY DAY 30 MINUTES BEFORE MORNING MEAL once weekly; Duration: 90 daysActive Social History Tobacco Use: Social History Observation Description Date Details (start date - stop date) Never Smoker NA - NA Tobacco Use/Smoking Question Answer Notes Patient is a nonsmoker Alcohol Screen (Audit-C) Question Answer Notes Did you have a drink containing alcohol in the p ast year? No Radebf6KszyarhejxrnguJdqcondiFRHGE-F (Standard) Question Answer Notes Did you have a drink containing alcohol in the p ast year? No Pdyvct1YgdpfprnsvcjblSuzuabfc Problems Problem Type SNOMED Code ICD Code Onset Dates Problem Status W/U Status Risk Notes Problem Gastro-esophageal re flux disease without esophagitis (114847967) Gastro-esophageal reflux disease without esophagitis (K21.9) ActiveconfirmedProblemOverweight (492358655)Overweight (E66.3)Activeconfirmed ProblemHyperlipidemia (60900236)Hyperlipidemia (E78.5)ActiveconfirmedProblem Chronic kidney disease (295843768)CKD (chronic kidney disease) (N18.9)Active confirmedProblemDeep venous thrombosis (539381252)DVT (deep venous thrombosis) (I82.409)ActiveconfirmedProblemColitis (06530083)Colitis (K52.9)Activeconfirmed ProblemPrediabetes (963323921)Pre-diabetes (R73.09)ActiveconfirmedProblem Overweight (588942918)Over weight (E66.3)ActiveconfirmedProblemObese class I (finding) (251902298103117)Class 1 obesity (E66.9)Activeconfirmed Vital Signs Blood pressure diastolic 68 mm Hg 07/25/2025 Upqefk98.510 in07/25/2025lood pressure zdefqixr203 mm Hg07/25/20259652Qjdfxz992 lbs 07/25/2025BMI27.97 kg/m207/25/2025 Encounters Encounter Location Date Provider Diagnosis [facility] [address] [facility] [place] [address] 09/19/[address] [facility] [facility] [place] [address] [facility] [facility] [place] [address]/Noemi [facility] [address] [facility] [place] [address]/Noemi [facility] [facility] [place] [address]/ [facility] [facility] [place] [address]/Noemi [facility] [facility] [place] [address]/Noemi DegrootLow potassium syndrome E87.6 [facility] [facility] [place] [address] 08/03/2025Noemi [facility] [facility] [place] [address]/steffany DegrootClass [facility] [facility] [place] [address]/09/2025 Noemi DegrootClass 1 [facility]66.9[facility] [facility] [place] [address]/09/2025Paraza DegrootOverweight E66.3B[facility] [place] [address] Noemi CramerWellness examination Z00.00 and Hyperlipidemia E78.5 Assessments Encounter Date Diagnosis (ICD Code) Assessment Notes Treatment Notes Treatment Clinical Notes Section Notes 10/25/2024 Class 1 obesity (ICD-10 - E66.9) work on diet has handouts from previous visit wants to try MS compounded GLP 1, rx sent wants to start Sabino fu 3 months 01/23/2025lass 1 obesity (ICD-10 - E66.9) continue semaglutide call for next dose work on diet, exercise fu 04/25/2025Overweight (ICD-10 - E66.3) has supply of semaglutide to last til end of year planning on stopping than just added walking work on diet fu 07/25/2025Wellness examination (ICD-10 - Z00.00)ROS done exam done08/01/2025Low potassium syndrome (ICD-10 - E87.6)07/25/2025Hyperlipidemia (ICD-10 - E78.5) Plan Of Treatment Pending [...] 07/25/2025 Insulin Level 08/05/2023 Insulin Level 07/25/2025 PROF 14(COMP METB) 08/01/2025 REVERSE T3 08/11/2024 T3, TOTAL (TRIIODOTHYRONINE) 08/16/2024 THYROID PANEL (T4/TSH/FREE T3) 5 THYROID PANEL (T4/TSH/FREE T3) 4 THYROID PANEL (T4/TSH/FREE T3) 3 CMP (COMP MET [place]) w/eGFR CKD-EPI 2024 CBC WITH DIFF 07/25/2025 Insurance Providers Payer Name Payer Address Payer Phone Subscriber Number Group Number Insured Name Patient Relationship to Insured Coverage Start Date Coverage End Date [employer] [address] [place] [address] [id number] Sadie Maria - patient is the insured Medical (General) History Medical History History ICD Code DVT COLITISOVER WEIGHTCKDHYPERLIPIDEMIAAtypical ductal hyperplasia of etvgsqW83.99 Surgical History Surgery Date(Month/Year) Lumpectomy right breast 11/2018 Endometrial ablasion DELIVERY g1MYETTAHOHJVI D&C3/2022Hospitalization History Reason Date(Month/Year) GI bleed 2020
[2025-09-14 08:15] LABS: Alanine Aminotransferase 29 U/L (14-59); Albumin Globulin Ratio 0.9; Albumin Level 3.5 g/dL (3.4-5.0); Alkaline Phosphatase 76 U/L (46-116); Anion Gap 14.4; Aspartate Amino Transferase 16 U/L (15-37); Blood Urea Nitrogen 18.0 mg/dL (7.0-18.0); Calcium 9.4 mg/dL (8.5-10.1); Carbon Dioxide 27.8 mmol/L (21.0-32.0); Chloride 106 mmol/L (98-107); Estimated GFR (African America >60 (>=60 mL/min/1.73m^2); Estimated GFR (Non-African Ame >60 (>=60 mL/min/1.73m^2); Globulin 3.9 g/dL; Glucose 112 mg/dL (74-106); Potassium 4.2 mmol/L (3.5-5.1); Sodium 144 mmol/L (136-145); Total Protein 7.4 g/dL (6.4-8.2)
== END 2025-09-14 07:23 | disposition home or self-care (01) ==
PROVIDERS: PCP Nurse Practitioner Family; Visit Provider Nurse Practitioner Family
DX: E87.6 Hypokalemia (principal)
CPT/HCPCS: 36415; 80053